=== PATIENT | female | born 1985 | race Caucasian/White ===

== ENCOUNTER → 2022-01-08 01:59 | Outpatient (CLI) | payer OTHER, SELFPAY ==
[2022-01-08 12:51] LABS: SARS-CoV-2 RNA PCR Negative
== END ==
PROVIDERS: Visit Provider Obstetrics & Gynecology
DX: Z01.812 Encounter for preprocedural laboratory examination (principal); Z20.822 Contact with and (suspected) exposure to COVID-19
CPT/HCPCS: 36415; 85025; 86850; 86900; 86901; C9803; U0003; U0005

== ENCOUNTER 2022-01-08 09:39 | Outpatient (CLI) | payer OTHER, SELFPAY ==
[2022-01-08 10:22] LABS: Basophils Percent Auto 0.5 % (0.2-1.2); Eosinophils Percent Auto 0.4 % (0-4.4); Hemoglobin 14.4 g/dL (12.0-15.0); Immature Granulocyte Absolute 0.02 K/mm3 (0.00-0.031); Immature Granulocyte Percent A 0.3 % (0-0.5); Lymphocytes Absolute Auto 3.01 K/mm3 (0.9-3.2); Lymphocytes Percent Auto 38.4 % (18.3-44.2); Mean Corpuscular HGB Conc 32.7 g/dl (32-36); Mean Corpuscular Hemoglobin 30.4 pg (26-34); Monocytes Absolute Auto 0.6 K/mm3 (0.1-0.6); Neutrophils Absolute Auto 4.2 K/mm3 (1.3-6.7); Neutrophils Percent Auto 53.4 % (45.5-73.1); Platelet Count Result 259 k/mm3 (150-375); Red Blood Count 4.73 M/mm3 (4.2-5.4); Red Cell Distribution Width 12.6 % (11.5-14.5); White Blood Count 7.8 K/mm3 (4.5-10.0)
== END 2022-01-08 09:40 | disposition home or self-care (01) ==
PROVIDERS: PCP Internal Medicine; Visit Provider Obstetrics & Gynecology
DX: R10.2 Pelvic and perineal pain (principal)
CPT/HCPCS: 36415; 85025; 86850; 86900; 86901

== ENCOUNTER 2022-01-11 01:04 | Day surgery (SDC) | payer OTHER, SELFPAY ==
[2022-01-02 12:32] VITALS: BMI 41.2
--- NOTE | 2022-01-02 12:49 | PC.NURSE ---
Report to the Outpatient Waiting Room, entrance under the green pavilion located off [facility], at time 6:00 on date 01/11/22. OR Time: 7:30. - You and your visitor will be asked a series of questions to screen for COVID 19 for your protection. - A mask is required within the hospital. One visitor will be allowed to accompany the patient into the hospital. Patients visitor will be instructed to remain with patient at all times or leave the building. We will allow the visitor to come back to the postoperative area when patient is ready. Preoperative COVID Testing Requirements: COVID TEST 01/08 AT 9:30 No COVID Test needed if: (proof is required; if not received patient will have Rapid Test prior to entry) - Patient has received COVID Vaccine at least 14 days prior to procedure date or - Patient has positive COVID test result within last 90 days of surgery date. COVID Test needed if above criteria is not met If not COVID vaccinated a COVID test must be conducted within 72 hours of surgery and patient is asked to isolate self from time of testing until procedure. You will go to the [facility] for your COVID testing. The [facility] site is located at the corner of [address] [facility]. You will only be called if COVID results are positive and your surgeon may reschedule your elective surgery date. Patients may have clear liquids (water, carbonated beverages, clear teas, apple juice) until 3 hours prior to surgery (4:30) with a maximum of 20 ounces. - No food from midnight until time of surgery Take the following medications with a SIP of water the morning of surgery: NONE Medications to discontinue per physician: N/A Date to take last dose: N/A Please no make-up, nail luxembourgish, hairspray, perfume, deodorant, or body powder the day of surgery. No jewelry (including any body piercings) or valuables the day of surgery, leave them at home. Please take a shower or bath the night before, or the morning of, surgery with an antibacterial soap. Wear comfortable, loose fitting clothing. - Jewelry must be removed prior to entering the operating room. Rings and piercings that are not removed may be cut off. - The hospital will not accept responsibility for valuables. - Please leave all valuables, including medications, at home the day of surgery. If you are going home after surgery, a licensed regional dedicated truck driver must drive you home. - NO public transportation without another adult. - We recommend that an adult stay with you for 24 hours following discharge. - We also recommend that you do not drive, make important decision, drink alcoholic beverages, or take any drugs that were not prescribed by your health care provider for at least 24 hours after your discharge time. Follow any additional instructions given to you from your surgeon. Telephone instructions given to MAGUI MCCOLLUM and asked if any additional questions and then verbalized understanding. Patient advised to call surgeon office or pre surgery nurse liaison [phone] if any additional questions.
--- NOTE | 2022-01-10 08:21 | PM.IMHP ---
H&P: HPI History of Present Illness Date/Time: 01/10/22 08:21 36-year-old multiparous admitted for hysterectomy and bilateral salpingectomy secondary to enlarged uterus pelvic pain bleeding and dyspareunia. Ultrasound shows a fibroid uterus. She has had chronic pelvic pain which has been on relenting and nonresponsive to medical therapy. Risks and benefits were reviewed including not exclusive of , aspiration pneumonia, bleeding, transfusion, perforation injury to bowel, bladder, ureters, or other internal organs with need for open laparotomy. She received the ACOG handout entitled hysterectomy as well as the [place] handout. She had all questions answered and asked to proceed Chief Complaint: Pelvic pain/enlarged uterus/dyspareunia Review of Systems Review of Systems: All systems reviewed & are unremarkable except as noted in HPI and below PMFSH Past Medical History Medical History No significant past medical history Family History Family History Grandparent Family history of osteoporosis Depression Hypertension Family history of arthritis Malignant neoplasm of prostate Family history of malignant neoplasm of ovary Diabetes mellitus Mother Depression Father Hypertension Social History Social History Years smoked: 6 Smoking status: Former smoker Tobacco type: cigarettes Smoking end date: 09/15/10 Alcohol intake: current Alcohol use details: 2/MONTH Substance use: never Substance use type: does not use Spiritual care concerns: No Meds Home Medications and Allergies Home Medications Medication Instructions Recorded Confirmed Type No Home Medications 01/02/22 01/02/22 History Allergies Allergy/AdvReac Type Severity Reaction Status Date / Time sulfamethizole Allergy Unknown Abdominal Verified 01/02/22 12:31 Pain sulfamethoxazole Allergy Unknown ABDOMINAL Verified 01/02/22 12:31 PAIN, NECK STIFFNESS trimethoprim Allergy Unknown Abdominal Verified 01/02/22 12:31 Pain MONISTAT Allergy Mild SWELLING Uncoded 01/02/22 12:31 Exam Const: General: no acute distress Eyes: General: appearance normal, both eyes and all related structures Neck: Neck: supple and no JVD Thyroid: thyroid normal Resp: Effort & Inspection: normal respiratory effort Auscultation: clear to auscultation bilaterally Cardio: Rate: regular rate Rhythm: regular rhythm GI: Inspection: non-distended GI Palp: Yes Soft to palpation, No Tenderness to palpation present (GI) and No Guarding due to palpation present (GI) Auscultation: normal bowel sounds : External Female Exam: normal external appearance Speculum Exam - Vagina: normal appearance of the vagina Speculum Exam - Cervix: Cervical os closed Bimanual exam- vagina & uterus: enlarged and Uterine tenderness Bimanual Exam- Adnexa, other: normal adnexae Skin: General skin exam: no rashes or lesions noted Extrem: General: normal to inspection and no edema Psych: Mental Status: mental status grossly normal Affect: normal affect Assessment and Plan Additional Plan Impression: Enlarged uterus irregular bleeding pelvic pain and dyspareunia refractory medical therapy Plan: Robotic total vaginal hysterectomy and bilateral salpingectomy
[2022-01-11] VITALS (13 sets, daily range): BP systolic 98–146; BP diastolic 43–95; PULSE 68–84; RESP 12–20; TEMP 36.2–37.2; O2SAT 97–100
--- NOTE | 2022-01-11 06:41 | WPDANESEPPF ---
Anes - Initial Pre Proc Eval Procedure: Operation Date: 01/11/22 07:30 Proposed Procedures p Robotic Assisted Total Vaginal Hysterectomy with Bilateral Salpingectomy - Yang Bernabe MD Date/Time: 01/11/22 06:41 Surgeon: Yang Bernabe MD Pre Op Diagnosis: pelvic pain, enlarge uterus, irreg bleeding Patient Data Age: 36 Gender: F Height: 1.75 m Weight: 126.55 kg Allergies Allergy/AdvReac Type Severity Reaction Status Date / Time sulfamethizole Allergy Unknown Abdominal Verified 01/02/22 12:31 Pain sulfamethoxazole Allergy Unknown ABDOMINAL Verified 01/02/22 12:31 PAIN, NECK STIFFNESS trimethoprim Allergy Unknown Abdominal Verified 01/02/22 12:31 Pain MONISTAT Allergy Mild SWELLING Uncoded 01/02/22 12:31 Home Medications Medication Instructions Recorded Confirmed Type No Home Medications 01/02/22 01/02/22 History Patient hx anesthesia problems: post op nausea/vomiting Family hx anesthesia problems: none Results Review: All pre-operative results and documents have been reviewed as part of the pre-operative evaluation. [facility] Past Medical History Medical History (Updated 01/11/22 @ 06:41 by Chau Estrada DO) Anxiety Endometriosis Fibroid No significant past medical history PONV (postoperative nausea and vomiting) Family History Family History Grandparent Family history of osteoporosis Depression Hypertension Family history of arthritis Malignant neoplasm of prostate Family history of malignant neoplasm of ovary Diabetes mellitus Mother Depression Father Hypertension Social History Social History Years smoked: 6 Smoking status: Former smoker Tobacco type: cigarettes Smoking end date: 09/15/10 Alcohol intake: current Alcohol use details: 2/MONTH Substance use: never Substance use type: does not use Living arrangements: with family Spiritual care concerns: No Anes - Eval Final PreProcedure Day of Procedure 01/11/22 06:41 Patient weight: morbidly obese Heart: regular rate and rhythm Lungs: clear to auscultation and normal air movement Airway: Mallampati scale class II Neurological: alert and oriented Last oral intake: >/= 8 hours ASA classification: III Emergent: no Anesthetic plan: proceed Anesthesia type and monitoring: general ETT and standard monitoring Results Review: All pre-operative results and documents have been reviewed as part of the pre-operative evaluation. Informed Consent: The patient's anesthetic plan and its attendant risks and benefits were discussed with the patient/family/POA. Questions were solicited and answers provided to the satisfaction of the patient/family/POA.
[2022-01-11] MEDS: ACETAMINOPHEN 500 MG TABLET 1000 MG PO (06:56)
[2022-01-11] MEDS: LACTATED RINGERS 1,000 ML 30 ML IV CONT ×2 (07:05→09:03)
[2022-01-11] MEDS: KETOROLAC 15 MG/ML VIAL (*BKC) IV PUSH ×2 (07:07→09:46)
[2022-01-11] MEDS: SCOPOLAMINE 1.5 MG PATCH TRANSDERM (07:09)
--- NOTE | 2022-01-11 07:17 | WPDHPUPDATE1 ---
History and Physical Update Update Date/Time: 01/11/22 07:17 History and Physical has been reviewed, including an updated exam of the patient. There are NO changes in the patient's condition. Risks, benefits, and alternatives have been discussed and questions answered. Patient agrees to proceed with procedure.
[2022-01-11] MEDS: ceFAZolin 3 GM/D5W 100 ML 100 ML IVPB (07:33)
--- NOTE | 2022-01-11 08:56 | W.PM.PROC2 ---
Procedure Note - Detailed Date of Procedure 01/11/22 Pre-op Diagnosis pelvic pain, enlarge uterus, irreg bleeding Post-op Diagnosis Same Procedure Performed Robotic total vaginal hysterectomy bilateral salpingectomy Surgeon Yang Bernabe MD Anesthesia General Indications Is a 36-year-old female with heavy bleeding pain enlarged uterus Findings Enlarged uterus. Right tube was status post ectopic with swelling and hematosalpinx. Multiple adhesions were seen anteriorly from the omentum to the anterior wall of the. A relatively large divot in the uterus anteriorly with a previous section had been undertaken. Normal-appearing ovaries bilaterally. Description of Procedure Patient was prepped draped in the normal sterile fashion placed in the dorsal lithotomy position. Under excellent general trach anesthesia weighted speculum placed post work vagina. Anterior lip of the cervix grasped with single-tooth tenaculum and the uterus sounded to 11cm. Serial dilatation with fragmented dilators performed followed by passage of the 10. NEHA and the 3. Cold cup. Next the 16 [place] catheter was placed in the bladder and the bladder drained clear urine. The remainder the instruments removed. Gloves were changed A supraumbilical incision made the Veress needle passed in the abdomen. Abdomen filled with CO2 gas [id number]. The 8mm trocar advanced in the abdomen. Downside visualized no injury seen gas reattached the patient placed in Trendelenburg. Left and right lateral quadrant incision made the 8mm trocars advanced under direct visualization assuring no injury. Right upper quadrant incision made the 8mm trocar advanced under direct visualization again assuring no injury. The robot was docked. Attention was turned to the console. The left round ligament was grasped, burned, cut. Anteriorly a bladder flap was formed by slowly dissecting the peritoneum and pushing the bladder caudally. This was somewhat scarred and was down layer by layer. This was taken to the opposite round ligament was clamped, burned, cut. Next the left fallopian tube was sharply dissected away from the ovarian complex using monopolar cautery and left attached to its uterine origin. In like fashion the right fallopian tube was it is still dissected away using sharp dissection and monopolar cautery and left attached to the uterine origin. Next the left utero-ovarian ligament was skeletonized to conserve the left ovary. This was clamped, burned, cut and brought to the level of previously cut round ligament. In like fashion concern removing the right ovary the utero-ovarian ligament was clamped, burned, cut and brought to level of previously cut round ligament. The left cardinal and broad ligaments were then skeletonized and sharply dissected by hugging the cervix and uterus on the way down to the uterine vessels clamping burning and cutting. The uterine vessels on the left were large and tortuous there were individually clamped, burned, cut. In like fashion the cardinal broad ligaments on the right were serially skeletonized clamped, burned, cut hugging the cervix and uterus until the uterine vessels could be seen on the right. These were individually clamped, burned, cut. Excellent blanching of the cervix and uterus were noted. A colpotomy incision was made and the cervix uterus and tubes removed through the vagina. The vagina was then closed with continuous running 0V lock from lateral edge to lateral edge back to the midline. Irrigation undertaken until clear and hemostasis was assured. The robot was undocked and the gas removed from the abdomen. The incisions closed with 4-0 Monocryl and glue and the patient was awakened. All sponge, needle, instrument counts were correct. There were no immediate complications noted Estimated Blood Loss 25 Drains No Packing No Pathology Yes Complications No immediate complications Condition Stable Disposition PACU
[2022-01-11] MEDS: ONDANSETRON INJ 4 MG/2 ML VIAL IV PUSH (09:17)
[2022-01-11] MEDS: fentaNYL CITRATE INJ (*CRX) 100 MCG/2 ML VIAL 25 MCG IV PUSH ×4 (09:20→10:11)
[2022-01-11] MEDS: diphenhydrAMINE HCl INJ 50 MG/ML VIAL 25 MG IV PUSH (09:46)
--- NOTE | 2022-01-11 10:23 | PC.NURSE ---
This patient, Gayathri Toney, was received from PACU per bed to room 289. Patient/family oriented to unit policies and routines
[2022-01-11] MEDS: DEXTROSE 5%/LACTATED RINGERS 1,000 ML 125 ML IV CONT (10:37)
[2022-01-11] MEDS: ACETAMINOPHEN 325 MG TABLET 650 MG PO ×2 (13:27→19:16)
[2022-01-11] MEDS: DOCUSATE SODIUM 100 MG CAPSULE PO (15:59)
[2022-01-11] MEDS: IBUPROFEN 600 MG TABLET PO ×2 (15:59→21:39)
[2022-01-12] MEDS: ACETAMINOPHEN 325 MG TABLET 650 MG PO ×2 (00:48→09:02)
[2022-01-12 04:00] VITALS: BP 118/65; PULSE 77; RESP 18; TEMP 36.9; O2SAT 99
[2022-01-12] MEDS: IBUPROFEN 600 MG TABLET PO (04:04)
[2022-01-12 05:38] LABS: Basophils Percent Auto 0.1 % (0.2-1.2); Eosinophils Percent Auto 0.1 % (0-4.4); Hematocrit 37.4 % (37.0-47.0); Hemoglobin 12.4 g/dL (12.0-15.0); Immature Granulocyte Absolute 0.03 K/mm3 (0.00-0.031); Immature Granulocyte Percent A 0.4 % (0-0.5); Lymphocytes Percent Auto 35.2 % (18.3-44.2); Mean Corpuscular HGB Conc 33.2 g/dl (32-36); Mean Corpuscular Hemoglobin 30.8 pg (26-34); Mean Corpuscular Volume 92.8 fl (80-100); Mean Platelet Volume 9.9 fl (7.4-10.4); Monocytes Absolute Auto 0.6 K/mm3 (0.1-0.6); Monocytes Percent Auto 7.5 % (2.6-8.5); Neutrophils Absolute Auto 4.7 K/mm3 (1.3-6.7); Neutrophils Percent Auto 56.7 % (45.5-73.1); Platelet Count Result 262 k/mm3 (150-375); Red Blood Count 4.03 M/mm3 (4.2-5.4); Red Cell Distribution Width 12.8 % (11.5-14.5); White Blood Count 8.3 K/mm3 (4.5-10.0)
--- NOTE | 2022-01-12 06:16 | PM.DS ---
DS: Admitting Diagnosis Discharge Date 01/12/2022 Admitting Diagnosis enlarged uterus/pelvic pain/ bleeding refractory to medical therapy DS: Summary Hospital Course Hospital Course: patient was admitted for robotic total vaginal hysterectomy bilateral salpingectomy on 01/11/2022. The procedure was unremarkable. Please see the operative report for full details. Her hospital course was unremarkable she remained afebrile. She was up, ambulating voiding without difficulty, eating regular diet and generally without complaints. Time Spent with Patient Time attestation: Total time spent providing and/or coordinating discharge services: Exam Const: General: no acute distress Eyes: General: appearance normal, both eyes and all related structures Neck: Neck: supple and no JVD Thyroid: thyroid normal Resp: Effort & Inspection: normal respiratory effort Auscultation: clear to auscultation bilaterally Cardio: Rate: regular rate Rhythm: regular rhythm GI: Inspection: non-distended GI Palp: Yes Soft to palpation, No Tenderness to palpation present (GI) and No Guarding due to palpation present (GI) Auscultation: normal bowel sounds : General: Yes bladder normal to palpation External Female Exam: normal external appearance Speculum Exam - Vagina: normal vaginal discharge and No vaginal bleeding Speculum Exam - Cervix: nontender Bimanual exam- vagina & uterus: bladder normal to palpation and No Cervical tenderness present OB/external & speculum: No vaginal bleeding Skin: General skin exam: no rashes or lesions noted Extrem: General: normal to inspection and no edema Psych: Mental Status: mental status grossly normal Affect: normal affect DS: Data Data Completed and Pending Pending studies at discharge: Pending at discharge 01/11/22 08:53 Surgical [PTH] Routine Labs on day of discharge: Labs from last 24 hours 01/12/22 04:11 WBC 8.3 RBC 4.03 L Hgb 12.4 Hct 37.4 MCV 92.8 MCH 30.8 MCHC 33.2 RDW 12.8 Plt Count 262 MPV 9.9 Immature Gran % (Auto) 0.4 Neut % (Auto) 56.7 Lymph % (Auto) 35.2 [place] % (Auto) 7.5 Eos % (Auto) 0.1 Baso % (Auto) 0.1 L Lymph # (Auto) 2.90 [place] # (Auto) 0.6 Eos # (Auto) 0.0 Baso # (Auto) 0.0 Abs Immat Gran (auto) 0.03 Absolute Neuts (auto) 4.7 Absolute Nucleated RBC 0.0 Nucleated RBC % 0.0 Discharge Plan Discharge Patient Disposition: Home, Self-Care Discharge Instructions: Remove the Scopolamine patch that was placed behind your ear in 72 hours or less. Wash your hands after touching. Stand Alone Forms: General Discharge Instructions Follow-up/Referrals: Yang Vinson MD [Physician] - Discharge Medications: New hydrocodone-acetaminophen 5-325 mg tablet 1 tablet PO Q4H PRN (Reason: pain) Qty: 30 RF: 0
--- NOTE | 2022-01-12 06:17 | PM.GYNPNOP ---
DIPPER FISH - A/P Postoperative Procedures: Procedures Operation Date: 01/11/22 07:30 Actual Procedure Side Surgeon p Robotic Assisted Total Vaginal Hysterectomy with Bilateral Salpingectomy Bilateral Yang Bernabe MD Postoperative day: 1 Postoperative status: doing well Postoperative plan: routine post-op care, advance diet and discharge Time Spent With Patient Time: Total time spent is greater than 50% in coordination of care (as documented) at patient's floor/unit and/or counseling patient: Time with patient: less than 15 minutes DIPPER FISH- PN:Subj Post-Op Subjective Date/time seen: 01/12/22 06:17 Subjective: patient desires discharge, pain is well controlled and patient is tolerating oral intake Review of Systems Review of Systems: All systems reviewed & are unremarkable except as noted in HPI and below Exam Const: General: no acute distress Eyes: General: appearance normal, both eyes and all related structures Neck: Neck: supple and no JVD Thyroid: thyroid normal Resp: Effort & Inspection: normal respiratory effort Auscultation: clear to auscultation bilaterally Cardio: Rate: regular rate Rhythm: regular rhythm GI: Inspection: non-distended GI Palp: Yes Soft to palpation, No Tenderness to palpation present (GI) and No Guarding due to palpation present (GI) Auscultation: normal bowel sounds : General: Yes bladder normal to palpation External Female Exam: normal external appearance Speculum Exam - Vagina: normal vaginal discharge and No vaginal bleeding Speculum Exam - Cervix: nontender Bimanual exam- vagina & uterus: bladder normal to palpation and No Cervical tenderness present OB/external & speculum: No vaginal bleeding Skin: General skin exam: no rashes or lesions noted Extrem: General: normal to inspection and no edema Psych: Mental Status: mental status grossly normal Affect: normal affect DIPPER FISH - PN: Obj Data Vital Signs Vital Signs: Vital Signs - 24 hr 01/11/22 09:03 01/11/22 09:15 01/11/22 09:30 Temperature 97.2 F L Pulse Rate 80 68 70 Respiratory Rate 14 12 14 Blood Pressure 134/59 L 107/50 L 104/43 L Pulse Oximetry 100 98 98 01/11/22 09:45 01/11/22 10:00 01/11/22 10:13 Temperature Pulse Rate 71 72 70 Respiratory Rate 12 12 12 Blood Pressure 105/50 L 109/50 L 111/65 Pulse Oximetry 99 100 100 01/11/22 10:20 01/11/22 10:30 01/11/22 12:16 Temperature 98.4 F 99 F Pulse Rate 71 73 Respiratory Rate 18 18 Blood Pressure 98/58 L 103/68 Pulse Oximetry 100 100 97 01/11/22 16:00 01/11/22 18:48 01/11/22 23:45 Temperature 98.3 F 98.8 F 98.5 F Pulse Rate 77 77 73 Respiratory Rate 18 18 18 Blood Pressure 119/70 128/82 106/62 Pulse Oximetry 97 100 98 Intake/Output Intake/Output: Intake & Output 01/09/22 01/10/22 01/11/22 01/12/22 23:59 23:59 23:59 23:59 Intake Total 2430 Output Total 2150 Balance 280 Meds/Results Medications: Active Medications Generic Name Dose Route Start Last Admin Trade Name Freq PRN Reason Stop Dose Admin Acetaminophen 650 mg 01/11/22 13:22 01/12/22 00:48 Acetaminophen 325 Mg Tablet PO 650 mg Q6H PRN Administration Mild Pain (1-3) or Fever Hydrocodone Bitart/Acetaminophen 1 tab 01/11/22 10:15 Hydrocodone/Acetaminophen (*Crx) 5-325 Mg Tablet PO Q3H PRN Pain Rated 5 or Less Hydrocodone Bitart/Acetaminophen 1 tab 01/11/22 10:15 Hydrocodone/Acetaminophen (*Crx) 10-325 Mg Tablet PO Q3H PRN Pain Rated 6 or Greater Docusate Sodium 100 mg 01/11/22 09:00 01/11/22 15:59 Docusate Sodium 100 Mg Capsule PO 100 mg BID TYLOR Administration Enoxaparin Sodium 40 mg 01/11/22 09:00 01/11/22 10:40 Enoxaparin 40 Mg/0.4 Ml Syringe SUB-Q Not Given DAILY TYLOR Dextrose/Lactated Ringer's 1,000 mls @ 125 mls/hr 01/11/22 10:15 01/11/22 13:15 Dextrose 5%/Lactated Ringers IV CONT 0 mls/hr .Q8H TYLOR Infusion Ibuprofen 600 mg 01/11/22 10:15 01/12/22 04:04 Ibu
[2022-01-12 08:00] VITALS: BP 118/72; PULSE 70; RESP 16; TEMP 36.7; O2SAT 100
[2022-01-12] MEDS: DOCUSATE SODIUM 100 MG CAPSULE PO (09:02)
[2022-01-12] MEDS: ENOXAPARIN 40 MG/0.4 ML SYRINGE SUB-Q (09:03)
== END 2022-01-12 12:15 | disposition home or self-care (01) ==
LOC: ANHSURGERY 07:15 → ANHOB2 10:22
PROVIDERS: PCP Internal Medicine; Visit Provider Obstetrics & Gynecology
PROC: (CPT 58552; principal; 2022-01-11 07:30)
DX: R10.2 Pelvic and perineal pain (principal); N83.6 Hematosalpinx; N72 Inflammatory disease of cervix uteri; N88.8 Other specified noninflammatory disorders of cervix uteri; N83.8 Other noninflammatory disorders of ovary, fallopian tube and broad ligament; N94.10 Unspecified dyspareunia; N93.9 Abnormal uterine and vaginal bleeding, unspecified; Z87.891 Personal history of nicotine dependence; E66.01 Morbid (severe) obesity due to excess calories; Z68.41 Body mass index [BMI] 40.0-44.9, adult
CPT/HCPCS: 58552; S2900; 36415; 85025; 88307; 99199; A9270; J0690; J1100; J1200; J1650; J1885; J2250; J2405; J2704; J2710; J3010; J7030; J7120; J7121

== ENCOUNTER 2025-08-17 08:38 | Emergency (ER) | payer OTHER, SELFPAY ==
--- NOTE | ~2025-08-17 | US_ITS ---
EXAMINATION: US venous doppler UE DATE: 08/17/2025 10:43 INDICATION: Pain and swelling left wrist status post IV access TECHNIQUE: Godfrey scale images with and without compression and Doppler images of the left upper extremity veins were obtained. COMPARISON: None. FINDINGS: The left internal jugular vein, subclavian vein, axillary vein, brachial veins, basilic vein, radial vein, and ulnar vein are patent. There is superficial venous thrombosis of the left cephalic vein. IMPRESSION: 1. No evidence of deep venous thrombosis. 2: Superficial venous thrombosis left cephalic pain. Reviewed, dictated and finalized at location I. TOR HELPER
[2025-08-17 08:48] VITALS: BP 130/98; PULSE 103; RESP 20; TEMP 36.9; O2SAT 100
--- OUTSIDE RECORDS SUMMARY | 2025-08-17 09:05 | XMS_ITS | Encounter Summary ---
Author Organization [facility] Address [address] [place] [address] Phone Care Team Providers Care Container Finishing Inspector Name Role Phone Yang Vinson MD Unavailable [phone] Cesar Tang MD Unavailable [phone] Herbert Jaime [facility] Primary Care Provider [phone] Encounter Details Date Type Department Care Team (Late st Contact Info) Description 09/03/2023 Behavioral Health Patient Survey [facility] [address] [place] [id number] Mavis Slaughter, [facility] [address] [place] [address] Social History Tobacco Use Types Packs/Day Years Used Date Smoking Tobacco: Former Smokeless Tobacco: Never Alcohol Use Standard Drinks/Week Comments No 0 (1 standard drink = 0.6 oz pur e alcohol) PHQ-2 Answer Date Recorded Total Score - Questions 1-9 0 08/16 Education Answer Date Recorded What is the highest level of school you have completed or the highest degree you have received? GED or equivalent Sexually Active Control Partners Comments Yes None Male Comments No Sex and Gender Information Value Date Recorded Sex Assigned at Not on file Legal Sex Female 11:07 PM CDT Gender Identity Not on file Sexual Orientation Not on file documented as of this encounter Functional Status * Question Answer Date of Assessment Author BP 100/62 09/04/2023 2:10 PM LISW Ontis , Loree A, RMA Temp 98.2 09/04/2023 2:10 PM LISW Ontis , Loree A, RMA Pulse 70 09/04/2023 2:10 PM LISW Ontis , Loree A, RMA Resp 18 09/04/2023 2:10 PM LISW Ontis , Loree A, RMA SpO2 99 09/04/2023 2:10 PM LISW Ontis , Loree A, RMA * Initial Score Answer Date of Assessment Author 0 09/04/2023 2:08 PM LISW Ontis, Ra darrian A, RMA * Question Answer Date of Assessment Author Little interest or pleasure in doing things Not at all 09/04/2023 2:08 PM LISW Ontis, Loree A, RMA Feeling down, depressed, or hopeless Not at all 09/04/2023 2:08 PM LISW Ontis, Loree A, RMA * Initial Score Answer Date of Assessment Author 0 09/04/2023 2:08 PM LISW Ontis, Ra darrian A, RMA * Question Answer Date of Assessment Author Little interest or pleasure in doing things Not at all 09/04/2023 2:08 PM LISW Ontis, Loree A, RMA Feeling down, depressed, or hopeless Not at all 09/04/2023 2:08 PM LISW Ontis, Loree A, RMA * Over the past 2 weeks, how often have you been bothered by any of the following problems? Question Answer Date of Assessment Author Patient Health Questionnaire -2 Score 0 09/04/2023 2:08 PM LISW Ontis, Loree A, RMA documented as of this encounter Mental Status * Question Answer Entry Date Author BP 100/62 09/04/2023 2:10 PM LISW Ontis , Loree A, RMA Temp 98.2 09/04/2023 2:10 PM LISW Ontis , Loree A, RMA Pulse 70 09/04/2023 2:10 PM LISW Ontis , Loree A, RMA SpO2 99 09/04/2023 2:10 PM LISW Ontis , Loree A, RMA * Initial Score Answer Entry Date Author 0 09/04/2023 2:08 PM LISW Ontis, Ra darrian A, RMA * Question Answer Entry Date Author Little interest or pleasure in doing things Not at all 09/04/2023 2:08 PM LISW RoseLoree RMApril Feeling down, depressed, or hopeless Not at all 09/04/2023 2:08 PM LISW Loree Rose MAYTE documented in this encounter Plan of Treatment Upcoming Encounters Date Type Department Care Team (Late st Contact Info) Description 08/19/2025 3:00 PM LISW Office Visit [facility] - Family Medicine - [place] [address] [place] [address] Karla Gamez, DO [address] [place] [address] documented as of this encounter Goals Goal Patient Goal Type Associated Problems Recent Progress Patient-Stated? Author Behavioral Health Behavioral Health On track(2022 9:44 AM LISW) Yes Mavis Slaughter, CORY Note: I want to get back with being able to communicate with my significant other and help him to not feel unloved or unappreciated. I also want to be able to deal better with stress/anxiety with grandmother situation, within the next six months. Goal Reviewed today with: patient Readiness to change: Ready to change Department associated with goal: [facility] Steps to achieve goal: Patient to be counseled on stress management, during her 45 min individual therapy sessions, 1-2 times per month. Patient to be counseled on healthy assertive communication skills, during her 45 min therapy sessions, 1-2 times per month Patient encouraged to attend the weekly [facility] group therapy Behavioral Health Behavioral Health On track(2022 9:44 AM LISW) No Mavis Slaughter LCSW Note: Goal: Gayathri will be able to report improved ability to cope with family/relationship stressors, to an acceptable level, within the next six months Goal Reviewed today with: patient Readiness to change: Ready to change Department associated with goal: [facility] Steps to achieve goal: Gayathri counseled on aspects of healthy self care, during her 45 min therapy sessions, 1-2 times per month Gayathri counseled on coping with anxiety, including deep breathing and other relaxation techniques, during her 45 min therapy sessions, 1-2 times per month Gayathri encouraged to attend the weekly [facility] group therapy documented as of this encounter Visit Diagnoses Not on filedocumented in this encounter Additional Health Concerns Infection Onset Date Last Indicated Resolved Time C. difficile Rule-Out 06/27/2025 06/28/20252024 11:48 AM CDT Assessment Noted Time PHQ-9 Depression Total Score: 0 04/27/20 11:00 AM CDT documented as of this encounter Care Teams Container Finishing Inspector Relationship Specialty Start Date End Date Herbert Jaime, [address] [place] [address] PCP - General Physician As400 Programmer Analyst 05/08/22 Yang Vinson MD [address] [address] Obstetrics & Gynecology 11/05/16 Cesar Tang MD [address] [address] Consulting Physician Neurology 12/06/16 08/01/24 documented as of this encounter
--- OUTSIDE RECORDS SUMMARY | 2025-08-17 09:05 | XMS_ITS | Encounter Summary ---
Author Organization [facility] Address [address] [place] [address] Phone Care Team Providers Care Post Hole Digger Name Role Phone Yang Vinson MD Unavailable [phone] Cesar aTng MD Unavailable [phone] Herbert Jaime [facility] Primary Care Provider [phone] Encounter Details Date Type Department Care Team (Late st Contact Info) Description 11/07/2022 Behavioral Health Patient Survey [facility] [address] [place] [address] Mavis Slaughter, [facility] [address] [place] [address] Social History Tobacco Use Types Packs/Day Years Used Date Smoking Tobacco: Former Smokeless Tobacco: Never Alcohol Use Standard Drinks/Week Comments No 0 (1 standard drink = 0.6 oz pur e alcohol) PHQ-2 Answer Date Recorded Total Score - Questions 1-9 0 04/15 Education Answer Date Recorded What is the highest level of school you have completed or the highest degree you have received? GED or equivalent Sexually Active Control Partners Comments Yes None Male Comments No Sex and Gender Information Value Date Recorded Sex Assigned at Not on file Legal Sex Female 11:07 PM CDT Gender Identity Not on file Sexual Orientation Not on file COVID-19 Exposure Response Date Recorded In the last 10 days, have yo u been in contact with someone who was confirmed or suspected to have Coronavirus/COVID-19? No / Unsure 11/07/2022 9:46 AM RAILROAD DINING CAR STEWARDESS documented as of this encounter Plan of Treatment Upcoming Encounters Date Type Department Care Team (Late st Contact Info) Description 08/19/2025 3:00 PM RAILROAD DINING CAR STEWARDESS Office Visit [facility] - Family Medicine - [place] [address] [place] [address] Karla Gamez, DO [address] [place] [address] documented as of this encounter Goals Goal Patient Goal Type Associated Problems Recent Progress Patient-Stated? Author Behavioral Health Behavioral Health On track(2022 9:44 AM RAILROAD DINING CAR STEWARDESS) Yes Mavis Slaughter LCSW Note: I want to get back with being able to communicate with my significant other and help him to not feel unloved or unappreciated. I also want to be able to deal better with stress/anxiety with grandmother situation, within the next six months. Goal Reviewed today with: patient Readiness to change: Ready to change Department associated with goal: [facility] Steps to achieve goal: Patient to be counseled on stress management, during her 45 min individual therapy sessions, 1-2 times per month. Patient to be counseled on healthy assertive communication skills, during her 45 min therapy sessions, 1-2 times per month Patient encouraged to attend the weekly [facility] group therapy Behavioral Health Behavioral Health On track(2022 9:44 AM RAILROAD DINING CAR STEWARDESS) No Mavis Slaughter LCSW Note: Goal: Gayathri will be able to report improved ability to cope with family/relationship stressors, to an acceptable level, within the next six months Goal Reviewed today with: patient Readiness to change: Ready to change Department associated with goal: [facility] Steps to achieve goal: [...] documented as of this encounter Care Teams Post Hole Digger Relationship Specialty Start Date End Date Herbert Jaime, [address] [place] [address] PCP - General Physician Insulation Extruder Operator 05/08/22 Yang Vinson MD [address] [place] [id number] Obstetrics & Gynecology 11/05/16 Cesar Tang MD [address] [place] [address] Consulting Physician Neurology 12/06/16 08/01/24 documented as of this encounter
--- OUTSIDE RECORDS SUMMARY | 2025-08-17 09:05 | XMS_ITS | Encounter Summary ---
Author Organization [facility] Address [address] [place] [address] Phone Care Team Providers Care Mobile Home Mechanic Name Role Phone Yang Vinson MD Unavailable [phone] Cesar Tang MD Unavailable [phone] Herbert Jaime PAC Primary Care Provider [phone] Encounter Details Date Type Department Care Team (Latest Contact Info) Description 07/21/2023 Transcribe Orders [facility] [address] [place] [address] Yahaira Mckinnon, CARDIAC CATH LAB RADIOLOGY TECHNOLOGIST, HISTOLOGY TECHNOLOGIST [address] [place], [place] [id number] History of morbid obesity (Primary Dx); Intestinal malabsorption following gastrectomy; Status post gastric bypass for obesity Social History Tobacco Use Types Packs/Day Years [...] Recorded In the last 10 days, have milagro u been in contact with someone who was confirmed or suspected to have Coronavirus/COVID-19? No / Unsure 07/21/2023 6:07 AM SALES REPRESENTATIVE SALES MANAGER documented as of this encounter Plan of Treatment Upcoming Encounters Date Type Department Care Team (Late st Contact Info) Description 08/19/2025 3:00 PM SALES REPRESENTATIVE SALES MANAGER Office Visit [facility] - Family [facility] - [place] [address] [place] [address] Karla Gamez, DO 2 Zach SHAFER, LELE[address] [place] [address] documented as of this encounter Goals Goal Patient Goal Type Associated Problems Recent Progress Patient-Stated? Author Behavioral Health Behavioral Health On track(2022 9:44 AM SALES REPRESENTATIVE SALES MANAGER) Yes Mavis Slaughter, CORY Note: I want to get back with being able to communicate with my significant other and help him to not feel unloved or unappreciated. I also want to be able to deal better with stress/anxiety with grandmother situation, within the next six months. Goal Reviewed today with: patient Readiness to change: Ready to change Department associated with goal: [facility] Steps to achieve goal: Patient to be counseled on stress management, during her 45 min individual therapy sessions, 1-2 times per month. Patient to be counseled on healthy assertive communication skills, during her 45 min therapy sessions, 1-2 times per month Patient encouraged to attend the weekly [facility] group therapy Behavioral Health Behavioral Health On track(2022 9:44 AM SALES REPRESENTATIVE SALES MANAGER) No Mavis Slaughter LCSW Note: Goal: Gayathri will be able to report improved ability to cope with family/relationship stressors, to an acceptable level, within the next six months Goal Reviewed today with: patient Readiness to change: Ready to change Department associated with goal: [facility] Steps to achieve goal: Gayathri counseled on aspects of healthy self care, during her 45 min therapy sessions, 1-2 times per month Gayathri counseled on coping with anxiety, including deep breathing and other relaxation techniques, during her 45 min therapy sessions, 1-2 times per month Gayathri encouraged to attend the weekly [facility] group therapy documented as of this encounter Procedures Procedure Name Priority Date/Time Associated Diagnosis Comments VITAMIN D, 25 HYDROXY TOTAL Today 07/21/2023 6:22 AM SALES REPRESENTATIVE SALES MANAGER History of morbid obesity 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 VITAMIN B12 Today 07/21/2023 6:22 AM SALES REPRESENTATIVE SALES MANAGER History of morbid obesity 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 PHOSPHORUS (PO4) Today 07/21/2023 6:22 AM SALES REPRESENTATIVE SALES MANAGER History of morbid obesity 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 PARATHYROID HORMONE PTH INTACT Today 07/21/2023 6:22 AM SALES REPRESENTATIVE SALES MANAGER History of morbid obesity 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 MAGNESIUM (MG) Today 07/21/2023 6:22 AM SALES REPRESENTATIVE SALES MANAGER History of morbid obesity 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 LIPID PANEL Today 07/21/2023 6:22 AM SALES REPRESENTATIVE SALES MANAGER History of morbid obesity 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 FOLIC ACID (FOLATE) Today 07/21/2023 6 :22 AM SALES REPRESENTATIVE SALES MANAGER History of morbid obesity 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 FERRITIN Today 07/21/2023 6:22 AM SALES REPRESENTATIVE SALES MANAGER History of morbid obesity 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 CMP (COMPREHENSIVE METABOLIC PANEL) Today 07/21/2023 6:22 AM SALES REPRESENTATIVE SALES MANAGER History of morbid obesity 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 COMPLETE BLOOD COUNT (CBC) WITH DIFF Today 07/21/2023 6:22 AM SALES REPRESENTATIVE SALES MANAGER History of morbid obesity 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 documented in this encounter Results * (ABNORMAL) CBC WITH AUTO DIFFERENTIAL (07/21/2023 6:22 AM SALES REPRESENTATIVE SALES MANAGER) WBC 4.12 4.00 - 12.00 10(3)/mcL 07/21/2023 7:32 AM SALES REPRESENTATIVE SALES MANAGER [facility] RBC 4.30 3.80 - 5.30 10(6)/mcL 07/21/2023 7:32 AM SALES REPRESENTATIVE SALES MANAGER [facility] HEMOGLOBIN (HGB) 13.6 12.0 - 15.8 g/dL 07/21/2023 7:32 AM [facility] HEMATOCRIT (HCT) 41.6 36.0 - 47.0 % 07/21/2023 7:32 AM [facility] MCV 96.7(H) 82.0 - 96.0 fL 07/21/2023 7:32 AM SALES REPRESENTATIVE SALES MANAGER [facility] MCH 31.6 26.0 - 34.0 pg 07/21/2023 7:32 AM SALES REPRESENTATIVE SALES MANAGER [facility] MCHC 32.7 31.0 - 36.0 g/dL 07/21/2023 7:32 AM [facility] PLATELET COUNT 230 140 - 440 10(3)/mcL 07/21/2023 7:32 AM SALES REPRESENTATIVE SALES MANAGER [facility] RDW 12.1 11.8 - 15.5 % 07/21/2023 7:32 AM [facility] MPV 9.6(L) 9.7 - 12.4 fL 07/21/2023 7:32 AM SALES REPRESENTATIVE SALES MANAGER [facility] NEUTROPHILS 40.1(L) 47.0 - 73.0 % 07/21/2023 7:32 AM SALES REPRESENTATIVE SALES MANAGER [facility] LYMPHOCYTES 50.2(H) 18.0 - 42.0 % 07/21/2023 7:32 AM [facility] MONOCYTES 7.0 4.0 - 12.0 % 07/21/2023 7:32 AM SALES REPRESENTATIVE SALES MANAGER [facility] EOSINOPHILS 2.2 0.0 - 5.0 % 07/21/2023 7:32 AM SALES REPRESENTATIVE SALES MANAGER [facility] BASOPHILS 0.5 0.0 - 1.0 % 07/21/2023 7:32 AM [facility] ABSOLUTE NEUTROPHILS 1.65 1.60 - 7.70 10(3)/[facility] 07/21/2023 7:32 AM [facility] ABSOLUTE LYMPHOCYTES 2.07 1.30 - 3.20 10(3)/[facility] 07/21/2023 7:32 AM SALES REPRESENTATIVE SALES MANAGER [facility] ABSOLUTE MONOCYTES 0.29 0.20 - 1.00 10(3)/[facility] 07/21/2023 7:32 AM SALES REPRESENTATIVE SALES MANAGER [facility] ABSOLUTE EOSINOPHIL 0.09 0.00 - 0.40 10(3)/[facility] 07/21/2023 7:32 AM [facility] ABSOLUTE BASOPHILS 0.02 0.00 - 0.10 10(3)/[facility] 07/21/2023 7:32 AM [facility] NRBC PER 100 WBC 0 07/21/20 7:32 AM [facility] Blood Venipuncture / Unknown 07/21/2023 6:22 AM SALES REPRESENTATIVE SALES MANAGER 07/21/2023 7:26 AM SALES REPRESENTATIVE SALES MANAGER us Yahaira Mckinnon CARDIAC CATH LAB RADIOLOGY TECHNOLOGIST, HISTOLOGY TECHNOLOGIST HEMATOLOGY ORDERABLES Fin al Result [facility] [address] [place] [address] * (ABNORMAL) IRON,TRANSFERN,CALC.TIBC,%SAT (07/21/2023 6:22 AM SALES REPRESENTATIVE SALES MANAGER) IRON 94 25 - 156 mcg/dL 07/21/2023 10:29 AM SALES REPRESENTATIVE SALES MANAGER [facility] TRANSFERRIN 186 180 - 382 mg/dL 07/21/2023 10:29 AM SALES REPRESENTATIVE SALES MANAGER [facility] TIBC, CALCULATED 233(L) 265 - 497 mcg/dL 07/21/2023 10:29 AM SALES REPRESENTATIVE SALES MANAGER [facility] % SATURATION * 40 15 - 62 % 07/21/2023 10:29 AM SALES REPRESENTATIVE SALES MANAGER [facility] Blood Venipuncture / Unknown 07/21/2023 6:22 AM SALES REPRESENTATIVE SALES MANAGER 07/21/2023 7:26 AM SALES REPRESENTATIVE SALES MANAGER Narrative [facility] - 07/21/2023 10:29 AM SALES REPRESENTATIVE SALES MANAGER * % Transferrin Saturation us Yahaira Mckinnon APRN, HISTOLOGY TECHNOLOGIST CHEMISTRY ORDERABLES Adrianne l Result [facility] [address] [place] [address] * PHOSPHORUS (PO4) (07/21/2023 6:22 AM SALES REPRESENTATIVE SALES MANAGER) [facility] PHOSPHORUS 2.8 2.5 - 4.5 mg/dL 07/21/2023 8:19 AM SALES REPRESENTATIVE SALES MANAGER [facility] Blood Venipuncture / Unknown 07/21/2023 6:22 AM SALES REPRESENTATIVE SALES MANAGER 07/21/2023 7:26 AM SALES REPRESENTATIVE SALES MANAGER us Yahaira Mckinnon APRN, HISTOLOGY TECHNOLOGIST CHEMISTRY ORDERABLES Adrianne l Result [facility] [address] [place] [address] * PARATHYROID HORMONE PTH INTACT (07/21/2023 6:22 AM SALES REPRESENTATIVE SALES MANAGER) Pathologist [facility] PTH INTACT 51 13 - 85 pg/mL 07/21/2023 10:34 AM SALES REPRESENTATIVE SALES MANAGER [facility] Blood Venipuncture / Unknown 07/21/2023 6:22 AM SALES REPRESENTATIVE SALES MANAGER 07/21/2023 7:25 AM SALES REPRESENTATIVE SALES MANAGER Yahaira Mckinnon APRN, CNP CHEMISTRY ORDERABLES Adrianne l Result Performing Organization Address City/[facility] [address]/ZIP Co de Phone Number [facility] [address] [place] [address] * THIAMIN (VITAMIN B1), WHOLE BLOOD, [facility] (07/21/2023 6:22 AM SALES REPRESENTATIVE SALES MANAGER) Pathologist [facility] THIAMIN (VITAMIN B1) 170 70 - 180 nmol/L 07/24/2023 9:38 AM SALES REPRESENTATIVE SALES MANAGER [facility] Comment: ADDITIONAL INFORMATION This test was developed and its performance characteristics determined by [facility] in a manner consistent with CLIA requirements. This test has not been cleared or approved by the U.S. Food and Drug Administration. Test Performed by: [facility] [place] [address] Manager Market Research: Gomez Gibson M.D. Ph.D.; CLIA# [id number] Blood Venipuncture / Unknown 07/21/2023 6:22 AM SALES REPRESENTATIVE SALES MANAGER 07/21/2023 7:25 AM SALES REPRESENTATIVE SALES MANAGER us Yahaira Mckinnon APRN, CNP LAB SEND OUTS Final Res ult [facility] * FOLIC ACID (FOLATE) (07/21/2023 6:22 AM SALES REPRESENTATIVE SALES MANAGER) FOLATE 11.1 7.0 - 31.4 ng/mL 07/21/2023 8:46 AM SALES REPRESENTATIVE SALES MANAGER [facility] IS THE PATIENT REQUIRED TO BE FASTING? No 07/21/2023 8:46 AM SALES REPRESENTATIVE SALES MANAGER [facility] Blood Venipuncture / Unknown 07/21/2023 6:22 AM SALES REPRESENTATIVE SALES MANAGER 07/21/2023 7:27 AM SALES REPRESENTATIVE SALES MANAGER Yahaira Mckinnon APRN, HISTOLOGY TECHNOLOGIST CHEMISTRY ORDERABLES Adrianne l Result Performing Organization Address City/[facility] [address]/ZIP Co de Phone Number [facility] [address] [place] [address] * VITAMIN B12 (07/21/2023 6:22 AM SALES REPRESENTATIVE SALES MANAGER) VITAMIN B12 503 213 - 816 pg/mL 07/21/2023 8:39 AM SALES REPRESENTATIVE SALES MANAGER [facility] Blood Venipuncture / Unknown 07/21/2023 6:22 AM SALES REPRESENTATIVE SALES MANAGER 07/21/2023 7:27 AM SALES REPRESENTATIVE SALES MANAGER Yahaira Mckinnon APRN, HISTOLOGY TECHNOLOGIST CHEMISTRY ORDERABLES Adrianne l Result Performing Organization Address [facility] [address]/[facility] Co de Phone Number [facility] [address] [place] [address] * VITAMIN D, 25 HYDROXY TOTAL (07/21/2023 6:22 AM SALES REPRESENTATIVE SALES MANAGER) VITAMIN D, 25 HYDROX 66 ng/mL 07/21/2023 8:46 AM SALES REPRESENTATIVE SALES MANAGER [facility] Blood Venipuncture / Unknown 07/21/2023 6:22 AM SALES REPRESENTATIVE SALES MANAGER 07/21/2023 7:27 AM SALES REPRESENTATIVE SALES MANAGER Narrative [facility] - 07/21/2023 8:46 AM SALES REPRESENTATIVE SALES MANAGER Published reference ranges for Vitamin D vary depending on time and place and method of testing, and on patient's age, sex, ethnicity and levels of other measured analytes such as parathormone, calcium and phosphorus. The result should be evaluated in conjunction with clinical findings and suspicions. [employer] of [employer] and Endocrine Clinical Practice Guidelines: Status Vitamin D levels (ng/mL) Deficient <=20 At risk of inadequacy 21-29 Sufficient 30-100 Centers of Disease Control and Prevention Guidelines: Status Vitamin D levels (ng/mL) Deficient <13 At risk of inadequacy 13-19 Sufficient 20-50 Possibly harmful >50 References: [employer], 2010 Dietary reference intakes for calcium and vitamin D. [place]: The National Academies Press. Bruce Burdick, Philip N, [place] SALOMON, et al., Evaluation, treatment, and prevention of Vitamin D deficiency: an Endocrinology Clinical Practice Guideline. JCEM 2011 96: 7 1867-6005. Hermelindo A, Chapo C, Juan Ramon Bearden, et al., Vitamin D Status: [place], , [facility] data brief, no. 59, MD Aaron: [facility] for Health Statistics. 2011. Yahaira Mckinnon APRN, CNP CHEMISTRY ORDERABLES Adrianne l Result Performing Organization Address City/[facility] [address]/ZIP Co de Phone Number [facility] [address] [place] [address] * MAGNESIUM (MG) (07/21/2023 6:22 AM SALES REPRESENTATIVE SALES MANAGER) MAGNESIUM 1.9 1.6 - 2.6 mg/dL 07/21/2023 8:19 AM SALES REPRESENTATIVE SALES MANAGER [facility] Blood Venipuncture / Unknown 07/21/2023 6:22 AM SALES REPRESENTATIVE SALES MANAGER 07/21/2023 7:26 AM SALES REPRESENTATIVE SALES MANAGER Yahaira Mckinnon APRN, CNP CHEMISTRY ORDERABLES Adrianne l Result Performing Organization Address City/[facility] [address]/ZIP Co de Phone Number [facility] [address] [place] [address] * LIPID PANEL (07/21/2023 6:22 AM SALES REPRESENTATIVE SALES MANAGER) CHOLESTEROL 159 <200 mg/dL 07/21/2023 8:19 AM SALES REPRESENTATIVE SALES MANAGER [facility] TRIGLYCERIDES 64 <150 mg/dL 07/21/2023 8:19 AM SALES REPRESENTATIVE SALES MANAGER [facility] HDL CHOLESTEROL 43 >40 mg/dL 8:19 AM SALES REPRESENTATIVE SALES MANAGER [facility] LDL 103 <130 mg/dL 07/21/2023 8:19 AM SALES REPRESENTATIVE SALES MANAGER [facility] VLDL 13 10 - 50 mg/dL 07/21/2023 8:19 AM SALES REPRESENTATIVE SALES MANAGER [facility] CHOL/HDL RATIO 3.7 0.0 - 4.4 07/21/2023 8:19 AM SALES REPRESENTATIVE SALES MANAGER [facility] NON-HDL CHOLESTEROL 116 <130 mg/dL 07/21/2023 8:19 AM SALES REPRESENTATIVE SALES MANAGER [facility] IS THE PATIENT REQUIRED TO BE FASTING? Yes 07/21/2023 8:19 AM SALES REPRESENTATIVE SALES MANAGER [facility] HAS THE PATIENT BEEN FASTING? Yes 07/21/2023 8:19 AM SALES REPRESENTATIVE SALES MANAGER [facility] Blood Venipuncture / Unknown 07/21/2023 6:22 AM SALES REPRESENTATIVE SALES MANAGER 07/21/2023 7:26 AM SALES REPRESENTATIVE SALES MANAGER Yahaira Mckinnon APRN, HISTOLOGY TECHNOLOGIST CHEMISTRY ORDERABLES Adrianne l Result Performing Organization Address City/[facility] [address]/ZIP Co de Phone Number [facility] [address] [place] [address] * FERRITIN (07/21/2023 6:22 AM SALES REPRESENTATIVE SALES MANAGER) FERRITIN 120 5 - 204 ng/mL 07/21/2023 8:35 AM SALES REPRESENTATIVE SALES MANAGER [facility] Blood Venipuncture / Unknown 07/21/2023 6:22 AM SALES REPRESENTATIVE SALES MANAGER 07/21/2023 7:26 AM SALES REPRESENTATIVE SALES MANAGER us Yahaira Mckinnon APRN, HISTOLOGY TECHNOLOGIST CHEMISTRY ORDERABLES Adrianne l Result [facility] [address] [place] [address] * (ABNORMAL) CMP (COMPREHENSIVE METABOLIC PANEL) (07/21/2023 6:22 AM SALES REPRESENTATIVE SALES MANAGER) SODIUM 140 136 - 145 mmol/L 07/21/2023 8:19 AM SALES REPRESENTATIVE SALES MANAGER [facility] POTASSIUM 3.9 3.5 - 5.1 mmol/L 07/21/2023 8:19 AM [facility] CHLORIDE 107 98 - 107 mmol/L 07/21/2023 8:19 AM [facility] CO2, VENOUS 26 22 - 30 mmol/L 07/21/2023 8:19 AM [facility] ANION GAP 10.9 <18.0 mmol/L 07/21/2023 8:19 AM [facility] GLUCOSE 85 70 - 99 mg/dL 07/21/2023 8:19 AM [facility] BUN 14 5 - 18 mg/dL 07/21/2023 8:19 AM [facility] CREATININE, BLOOD 0.69 0.60 - 1.00 mg/dL 07/21/2023 8:19 AM [facility] BUN/CREATININE RATIO 20 12 - 20 ratio 07/21/2023 8:19 AM [facility] TOTAL PROTEIN 6.9 6.3 - 8.2 g/dL 07/21/2023 8:19 AM [facility] ALBUMIN 4.0 3.5 - 5.0 g/dL 07/21/2023 8:19 AM [facility] A/G RATIO 1.4 1.0 - 2.2 07/21/2023 8:19 AM [facility] CALCIUM 8.8 8.7 - 10.5 mg/dL 07/21/2023 8:19 AM [facility] T BILI 0.7 0.2 - 1.2 mg/dL 07/21/2023 8:19 AM [facility] SGOT (AST) 12 5 - 34 U/L 07/21/2023 8:19 AM [facility] SGPT (ALT) 19 0 - 55 U/L 07/21/2023 8:19 AM [facility] ALKALINE PHOSPHATASE 38(L) 40 - 150 U/L 07/21/2023 8:19 AM [facility] IS THE PATIENT REQUIRED TO BE FASTING? No 07/21/2023 8:19 AM SALES REPRESENTATIVE SALES MANAGER [facility] GFR, ESTIMATED >60 >=60 07/21/2023 8:19 AM SALES REPRESENTATIVE SALES MANAGER [facility] Comment: Creatinine Clearance is the preferred criteria for selecting drug dose adjustments in renally impaired patients. The GFR is provided as additional pertinent clinical information. GFR is reported in mL/min/1.73 sq m. Calculation based on the Chronic Kidney Disease Epidemiology Collaboration (CKD- EPI) equation refit without adjustment for race. GFR, EST. >60 >=60 023 8:19 AM SALES REPRESENTATIVE SALES MANAGER [facility] GFR, EST. NONAFRICAN >60 >=60 07/21/2023 8:19 AM SALES REPRESENTATIVE SALES MANAGER [facility] Blood Venipuncture / Unknown 07/21/2023 6:22 AM SALES REPRESENTATIVE SALES MANAGER 07/21/2023 7:26 AM SALES REPRESENTATIVE SALES MANAGER Yahaira Mckinnon APRN, HISTOLOGY TECHNOLOGIST CHEMISTRY ORDERABLES Adrianne l Result [facility] [address] [place] [address] documented in this encounter Visit Diagnoses Diagnosis History of morbid obesity- Primary 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 Bariatric surgery status documented in this encounter Additional Health Concerns Infection Onset Date Last Indicated Resolved Time C. difficile Rule-Out 06/27/2025 06/28/20252024 11:48 AM CDT Assessment Noted Time PHQ-9 Depression Total Score: 0 04/27/20 21 11:00 AM CDT documented as of this encounter Care Teams Mobile Home Mechanic Relationship Specialty Start Date End Date Herbert Jaime PAC [address] [place] [address] PCP - General Physician Pony Roll Finisher 05/08/22 Yang Vinson MD [address] [place] [address] Obstetrics & Gynecology 11/05/16 Cesar Tang MD [address] [facility] [address] [facility] [address] [place] [address] Consulting Physician Neurology 12/06/16 08/01/24 documented as of this encounter
--- OUTSIDE RECORDS SUMMARY | 2025-08-17 09:05 | XMS_ITS | Encounter Summary ---
Author Organization [facility] Address [address] [place] [address] Phone Care Team Providers Care Research Hydraulic Engineer Name Role Phone Yang Vinson MD Unavailable [phone] Cesar Tang MD Unavailable [phone] Herbert Jaime [facility] Primary Care Provider + [phone] Encounter Details Date Type Department Care Team (Late st Contact Info) Description 05/14/2022 Behavioral Health Patient Survey [facility] [address] [place] [address] Mychart, Generic Provider [address] [place] [address] Social History Tobacco Use Types Packs/Day Years [...] suspected to have Coronavirus/COVID-19? No / Unsure 05/13/2022 7:20 PM CDT documented as of this encounter Plan of Treatment Upcoming Encounters Date Type Department Care Team (Late st Contact Info) Description 08/19/2025 3:00 PM RN GYNECOLOGY Office Visit [facility] - Family Medicine - [place] [place] [address] Karla Gamez, DO [address] [place] [address] documented as of this encounter Goals Goal Patient Goal Type Associated Problems Recent Progress Patient-Stated? Author Behavioral Health Behavioral Health On track(2022 9:44 AM RN GYNECOLOGY) Yes Mavis Slaughter, CORY Note: I want to get back with being able to communicate with my significant other and help him to not feel unloved or unappreciated. I also want to be able to deal better with stress/anxiety with grandmother situation, within the next six months. Goal Reviewed today with: patient Readiness to change: Ready to change Department associated with goal: [facility] Steps to achieve goal: Patient to be counseled on stress management, during her 45 min individual therapy sessions, 1-2 times per month. Patient to be counseled on healthy assertive communication skills, during her 45 min therapy sessions, 1-2 times per month Patient encouraged to attend the weekly [facility] group therapy Behavioral Health Behavioral Health On track(2022 9:44 AM RN GYNECOLOGY) No Mavis Slaughter, CORY Note: Goal: Gayathri will be able to report improved ability to cope with family/relationship stressors, to an acceptable level, within the next six months Goal Reviewed today with: patient Readiness to change: Ready to change Department associated with goal: [facility] Steps to achieve goal: [...] documented as of this encounter Care Teams Research Hydraulic Engineer Relationship Specialty Start Date End Date Herbert Jaime, PAC [address] [place] [address] PCP - General Physician Home Health Lvn 05/08/22 Yang Vinson MD [address] [address] Obstetrics & Gynecology 11/05/16 Cesar Tang MD [address] [address] Consulting Physician Neurology 12/06/16 08/01/24 documented as of this encounter
--- OUTSIDE RECORDS SUMMARY | 2025-08-17 09:05 | XMS_ITS | Encounter Summary ---
Author Organization [facility] Address [address] [place] [address] Phone Care Team Providers Care Rn Cardiac Cath Name Role Phone Yang Vinson MD Unavailable [phone] Cesar Tang MD Unavailable [phone] Alex Avilez PAC Primary Care Provider U Herbert Rehman PAC Primary Care Provider + [phone] Encounter Details Date Type Department Care Team (Late st Contact Info) Description 04/10/2022 Behavioral Health Patient Survey [facility] [address] [place] [address] Mychart, Generic Provider [address] [place] [address] Social History Tobacco Use Types Packs/Day Years [...] suspected to have Coronavirus/COVID-19? No / Unsure 04/10/2022 3:16 PM CDT documented as of this encounter Functional Status documented as of this encounter Mental Status * Question Answer Entry Date Author BP 134/76 04/10/2022 9:05 AM CDT Jennifer Greer ams, RN Temp 98.4 04/10/2022 9:05 AM CDT Jennifer Greer ams, RN Pulse 89 04/10/2022 9:05 AM CDT Jennifer Greer ams, RN SpO2 99 04/10/2022 9:05 AM CDT Jennifer Greer ams, RN documented in this encounter Plan of Treatment Upcoming Encounters Date Type Department Care Team (Late st Contact Info) Description 08/19/2025 3:00 PM LABOR LAW PROFESSOR Office Visit [facility] Medical [facility] - Family Medicine [facility] [address] [place] [address] Karla Gamez, DO [address] [facility] [address] [place] [address] documented as of this encounter Goals Goal Patient Goal Type Associated Problems Recent Progress Patient-Stated? Author Behavioral Health Behavioral Health On track(2022 9:44 AM LABOR LAW PROFESSOR) Yes Mavis Slaughter LCSW Note: I want to get back with being able to communicate with my significant other and help him to not feel unloved or unappreciated. I also want to be able to deal better with stress/anxiety with grandmother situation, within the next six months. Goal Reviewed today with: patient Readiness to change: Ready to change Department associated with goal: [facility] Steps to achieve goal: Patient to be counseled on stress management, during her 45 min individual therapy sessions, 1-2 times per month. Patient to be counseled on healthy assertive communication skills, during her 45 min therapy sessions, 1-2 times per month Patient encouraged to attend the weekly [facility] group therapy Behavioral Health Behavioral Health On track(2022 9:44 AM LABOR LAW PROFESSOR) No Slaughter, Kren K, PUNCH MACHINE OPERATOR Note: Goal: Gayathri will be able to report improved ability to cope with family/relationship stressors, to an acceptable level, within the next six months Goal Reviewed today with: patient Readiness to change: Ready to change Department associated with goal: [facility] Steps to achieve [...] documented as of this encounter Care Teams Rn Cardiac Cath Relationship Specialty Start Date End Date Alex Avilez, ACRLITA [address] [address] PCP - General Physician Clam Bed Laborer 03/16/21 05/07/22 Herbert Jaime, [facility] [address] [place] [address] PCP - General Physician Clam Bed Laborer 05/08/22 Yang Vinson MD [address] [address] Obstetrics & Gynecology 11/05/16 Cesar Tang MD [address] [place] [address] Consulting Physician Neurology 12/06/16 08/01/24 documented as of this encounter
--- OUTSIDE RECORDS SUMMARY | 2025-08-17 09:05 | XMS_ITS | Encounter Summary ---
Author Organization [facility] Address [address] [place] [address] Phone Care Team Providers Care Work Order Sorting Clerk Name Role Phone Yang Vinson MD Unavailable [phone] Cesar Tang MD Unavailable [phone] Herbert Jaime [facility] Primary Care Provider + [phone] Encounter Details Date Type Department Care Team (Late st Contact Info) Description 09/19/2022 Behavioral Health Patient Survey [facility] [address] [place] [address] Mychart, Generic Provider [address] [place] [address] Social History Tobacco Use Types Packs/Day Years [...] suspected to have Coronavirus/COVID-19? No / Unsure 09/19/2022 9:13 AM FOREIGN EXCHANGE TRADER documented as of this encounter Plan of Treatment Upcoming Encounters Date Type Department Care Team (Late st Contact Info) Description 08/19/2025 3:00 PM FOREIGN EXCHANGE TRADER Office Visit [facility] Medical [facility] - Family Medicine - [place] [place] [address] Karla Gamez, DO [address] [place] [address] documented as of this encounter Goals Goal Patient Goal Type Associated Problems Recent Progress Patient-Stated? Author Behavioral Health Behavioral Health On track(2022 9:44 AM FOREIGN EXCHANGE TRADER) Yes Mavis Slaughter LCSW Note: I want to get back with being able to communicate with my significant other and help him to not feel unloved or unappreciated. I also want to be able to deal better with stress/anxiety with grandmother situation, within the next six months. Goal Reviewed today with: patient Readiness to change: Ready to change Department associated with goal: [facility] Steps to achieve goal: Patient to be counseled on stress management, during her 45 min individual therapy sessions, 1-2 times per month. Patient to be counseled on healthy assertive communication skills, during her 45 min therapy sessions, 1-2 times per month Patient encouraged to attend the weekly [facility] group therapy Behavioral Health Behavioral Health On track(2022 9:44 AM FOREIGN EXCHANGE TRADER) No Mavis Slaughter LCSW Note: Goal: Gayathri will be able to report improved ability to cope with family/relationship stressors, to an acceptable level, within the next six months Goal Reviewed today with: patient Readiness to change: Ready to change Department associated with goal: [facility] Steps to achieve [...] documented as of this encounter Care Teams Work Order Sorting Clerk Relationship Specialty Start Date End Date Herbert Jaime, PAC [address] [place] [address] PCP - General Physician Tray Drier 05/08/22 Yang Vinson MD [address] [address] Obstetrics & Gynecology 11/05/16 Cesar Tang MD [address] [address] Consulting Physician Neurology 12/06/16 08/01/24 documented as of this encounter
--- OUTSIDE RECORDS SUMMARY | 2025-08-17 09:05 | XMS_ITS | Clinical Summary ---
Author Organization [facility] Address [address] [place] [address] Care Team Providers Care Director Part Name Role Phone Yang Vinson MD Unavailable [phone] Herbetr Jaime Primary Care Provider + [phone] Allergies Active Allergy Reactions Criticality Noted Date Comments Sulfamethoxazole-Trimethop rim Shortness of Breath 01/15/2016 Miconazole Nitrate Other (see Comments) 11/05/2016 Nsaids Other (see Comments) 10/29/2022 Xepqk-Vitdtae-Jfuosp Other (see Comments) 11/13/2022 I have had Gastric Bypass. I am only allowed Sugar Free items. Sulfamethoxazole Other (see Comments) Trimethoprim Shortness of Breath Medications Acetaminophen 500 MG Capsule Activ e buPROPion (WELLBUTRIN) 300 MG TABLET SR 24 HR XL tablet 100 mg. 100MG TID non XL 3 Active Probiotic Product (Probiotic Colon Support) Capsule 3 Active other by Other route. Bariatric Advantage Ultra Solo with Iron Active Polyethylene Glycol 3350 Powder Take by mouth. Activ e ondansetron (ZOFRAN-ODT) 4 MG TABLET DISPERSIBLE 3 Active Vilazodone HCl (Viibryd) 10 MG Tablet Take by mouth. Activ e Conj Estrog-Medroxypr ogest Arthur (PREMPRO PO) Take by mouth. Ac tive fluconazole (DIFLUCAN) 150 MG TabletIndication s:Antibiotic-ind uced yeast infection Take 1 Tablet by mouth daily as needed (vaginal yeast infection). 3 Tablet 3 Active cyclobenzaprine (FLEXERIL) 10 MG TabletIndication s:Muscle spasm of right lower extremity TAKE 1 TABLET BY MOUTH 3 TIMES DAILY NEEDED FOR MUSCLE SPASMS. 30 Tablet 1 5 Active Active Problems Problem Noted Date Diagnosed Date Preventative health care (Adult) 10/19/2018 Obesity due to excess calories without serious c omorbidity 04/21/2018 Herniation of intervertebral disc between L5 and S1 01/13/2018 Chronic midline low back pain without sciatica 1 Mixed migraine and muscle contraction headache 0 12/06/2016 Generalized anxiety disorder 05/08/2016 Hypersomnia with sleep apnea 07/20/2013 Overview (08/25/2018): Overview: Hypersomnia with sleep apnea Morbid obesity 07/20/2013 Overview (08/25/2018): Overview: Morbid obesity Resolved Problems Problem Noted Date Diagnosed Date Resolved Date Bulging of intervertebral di sc between L4 and L5 04/21/2018 10/19/2018 Cauda equina compression 01/13/201810/2017 Encounters Date Type Department Care Team Description 08/03/2025 Telephone [facility] [address] [place] [phone] Karla Gamez DO 06/28/2025 Travel 06/27/[address] [facility] [address] [place] [phone] Provider, Unknown Diarrhea, unspecified type (Primary Dx) 06/24/2025 Telephone [facility] [address] [place] [phone] Herbert Jaime, PAC 06/23/2025 5:37 AM CDT - 06/23/2025 11:37 AM CDT Emergency [facility] Emergency [address] [place] [phone] Jarek Estrada DO Bowel perforation Discharge Disposition: [facility] 06/20/2025 8:51 AM CDT - 06/20/2025 11:59 PM CDT Hospital Encounter [facility] Mammography [address] [place] [phone] Yang Vinson MD Discharge Disposition: Discharged to home or Selfcare 06/20/2025 Travel 06/09/2025 Transcribe Orders [facility] [address] [place] [address] Yagn Vinson MD Visit for screening mammogram (Primary Dx) from Last 3 Months Immunizations Immunization Administration Dates Next Due DTAP VACCINE 05/25/2015 Influenza,Split Virus,Trivalent,Injectable,PF TD VACCINE 02/01/2000 Family History Medical History Relation Name Comments Coronary Artery Disease Father Terence Was found before age 50 Heart Attack Father Terence High Cholesterol Father Terence Hypertension Father Terence Cancer Maternal Aunt Ronni Lung Diabetes Maternal Aunt Ronni Aneurysm Maternal Grandfather Adolfo Was in groin Heart Attack Maternal Grandfather Bill High Cholesterol Maternal Grandfather Bill Hypertension Maternal Grandfather Bill Congestive Heart Failure Maternal Grandmother Opalene Pacemaker was put in 2019 High Cholesterol Maternal Grandmother Opalene Hypertension Maternal Grandmother Opalene Cancer Mother Kimberley Prostate Seizures Mother Kimberley Has a tumor in her head that can cause them Cancer Paternal Grandfather Ladislaus Prostat e Cancer Paternal Grandmother Marily Uterine Hypertension Paternal Grandmother Marily Migraines Sister 1 High Cholesterol Sister 2 Sujatha Hypertension Sister 2 Sujatha Migraines Sister 2 Sujatha Rashes/Skin Problems Sister 2 Sujatha Hidrade nitis Suppurativa Relation Name Status Comments Father Terence Alive Maternal Aunt Ronni Alive Maternal Grandfather Bill Alive Maternal Grandmother Opalene Alive Mother Kimberley Alive Paternal Grandfather Ladislaus Alive Paternal Grandmother Marily Alive Sister 1 Alive Sister 2 Sujatha Alive Social History Tobacco Use Types Packs/Day Years Used Date Smoking Tobacco: Former Smokeless Tobacco: Never Tobacco Cessation:Counseling Given: No Alcohol Use Standard Drinks/Week Comments No 0 [...] on file Sexual Orientation Not on file Last Filed Vital Signs Vital Sign Reading Time Taken Comments Blood Pressure 111/78 06/23/2025 11:15 AM CDT Pulse 92 06/23/2025 11:15 AM CDT Temperature 36.7 C (98 F) 06/23/2025 5:48 AM CDT Respiratory Rate 26 06/23/2025 11:15 AM CDT Oxygen Saturation 99% 06/23/2025 11:15 AM CDT Inhaled Oxygen Concentration - - Weight 68 kg (150 lb) 06/23/2025 5:48 AM CDT Height 175.3 cm (5' 9) 06/23/2025 5:48 AM CDT Body Mass Index 22.15 06/23/2025 5:48 AM CDT Plan of Treatment Upcoming Encounters Date Type Department Care Team (Late st Contact Info) Description 08/19/2025 3:00 PM HOSPICE/HOME HEALTH AIDE Office Visit [facility] - [place] [address] [place] [address] Karla Gamez, DO [address] [address] Health Maintenance Due Date Last Done Comments Varicella Immunization (1 of 2 - 13+ 2-dose series) 1997 Hepatitis B Immunization (1 of 3 - 19+ 3-dose series) 2003 Human Papillomavirus (HPV) Immunization (1 - 3-dose SCDM series) 2011 Influenza Immunization (#1) 2025 06/17/2024 SARS-COV-2 Immunization ( - season) 2025 Mammogram 06/20/2026 06/20/2025 Respiratory Syncytial Virus (RSV) Immunization (Adult) (1 - 1-dose 75+ series) 2059 DTaP/Tdap/Td Immunization Discontinued 2014, 02/01/2000 Hepatitis C Virus (HCV) Screening Completed 03/11/2018 Discussion re Starting/Frequency of Mammograms Completed 06/20/2025 Meningococcal Immunization (ACWY) Aged Out No longer eligible based on patient's age to complete this topic Pneumococcal Immunization Combined Aged Out No longer eligible based on patient's age to complete this topic Rotavirus Immunization Aged Out No lo nger eligible based on patient's age to complete this topic Goals Goal Patient Goal Type Associated Problems Recent Progress Patient-Stated? Author [facility] On track(2022 9:44 AM HOSPICE/HOME HEALTH AIDE) Yes Mavis Slaughter, CORY Note: I want to get back with being able to communicate with my significant other and help him to not feel unloved or unappreciated. I also want to be able to deal better with stress/anxiety with grandmother situation, within the next six months. Goal Reviewed today with: patient Readiness to change: Ready to change Department associated with goal: [facility] Steps to achieve goal: Patient to be counseled on stress management, during her 45 min individual therapy sessions, 1-2 times per month. Patient to be counseled on healthy assertive communication skills, during her 45 min therapy sessions, 1-2 times per month Patient encouraged to attend the weekly [facility] group therapy [facility] On track(2022 9:44 AM HOSPICE/HOME HEALTH AIDE) No Mavis Slaughter, CORY Note: Goal: Gayathri will be able to report improved ability to cope with family/relationship stressors, to an acceptable level, within the next six months Goal Reviewed today with: patient Readiness to change: Ready to change Department associated with goal: [facility] Steps to achieve goal: Gayathri counseled on aspects of healthy self care, during her 45 min therapy sessions, 1-2 times per month Gayathri counseled on coping with anxiety, including deep breathing and other relaxation techniques, during her 45 min therapy sessions, 1-2 times per month Gayathri encouraged to attend the weekly [facility] group therapy Procedures Procedure Name Priority Date/Time Associated Diagnosis Comments C. DIFF BY PCR Routine 06/28/2025 10:09 AM CDT Diarrhea, unspecified type C. DIFFICILE BY PCR Routine 06/28/2025 10:09 AM CDT Diarrhea, unspecified type CULTURE, BLOOD STAT 06/23/2025 8:40 AM CDT CULTURE, BLOOD STAT 06/23/2025 8:40 AM CDT TROPONIN I, HIGH SENSITIVITY (HSTRP) STAT 06/23/2025 7:[address] ABDOMEN PELVIS W/ CONTRAST Stat with Interpretation 06/23/2025 7:35 AM CDT EKG 12 LEAD STAT 06/23/2025 7:00 AM CDT URINALYSIS REFLEX IF INDICATED BY ABNORMAL RESULTS STAT 06/23/2025 6:02 AM CDT CRITICAL CARE Routine 06/23/2025 6:01 AM CDT CBC WITH AUTO DIFFERENTIAL STAT 06/23/2025 5:55 AM CDT TROPONIN I, HIGH SENSITIVITY (HSTRP) STAT 06/23/2025 5:55 AM CDT LIPASE STAT 06/23/2025 5:55 AM CDT CMP (COMPREHENSIVE METABOLIC PANEL) STAT 06/23/2025 5:55 AM CDT COMPLETE BLOOD COUNT (CBC) WITH DIFF STAT 06/23/2025 5:55 AM CDT EKG SCAN 06/23/2025 12:00 AM CDT DAMIEN SCREENING BILATERAL DIGITAL W CAD W RUT Routine 06/20/2025 9:10 AM CDT Visit for screening mammogram from Last 3 Months Results * C. DIFF BY PCR (06/28/2025 10:09 AM CDT) C DIFF TOXIN DNA BY PCR Negative Negative, Invalid 06/28/2025 11:48 AM CDT [facility] Other STOOL SPECIMEN / Unknown Non-Phlebotomy Collection / Unknown 06/28/2025 10:09 AM CDT 06/28/2025 11:00 AM CDT us Not On File Provider MICROBIOLOGY - GENERAL ORDE RABLES Final Result [facility] [address] [place] [address] * Culture, Blood (06/23/2025 8:40 AM CDT) Only the most recent of2 resultswithin the time period is included. [facility] CULTURE RESULTS NO GROWTH WITHIN 5 DAYS, FINAL RESULT 06/28/2025 9:00 AM CDT [facility] Culture BLOOD SPECIMEN / Unknown Venipuncture / Unknown 06/23/2025 8:40 AM CDT 06/23/2025 8:54 AM CDT us Jarek Estrada DO MICROBIOLOGY - GENERAL ORDERABLES Final Result [facility] [address] [place] [address], * TROPONIN I, HIGH SENSITIVITY (HSTRP) (06/23/2025 7:58 AM CDT) Only the most recent of2 resultswithin the time period is included. [facility] TROPONIN I, HIGH SENSITIVITY- [place] <2.7 <=14.0 ng/L 06/23/2025 8:33 AM CDT [facility] Comment: High-sensitivity troponin I results are reported in ng/L making the result appear to be 1,000 times higher than the contemporary troponin I value which is reported in ng/ml. Results from [place]. Blood Venipuncture / Unknown 06/23/2025 7:58 AM CDT 06/23/2025 8:08 AM CDT us Jarek Estrada DO CHEMISTRY ORDERABLES Fi nal Result [facility] [address] [place] [address] * CT ABDOMEN PELVIS W/ CONTRAST (06/23/2025 7:35 AM CDT) Anatomical Region Laterality Modality Abdomen N/A Computed Tomogra phy 06/23/2025 7:35 AM CDT Impressions 06/23/2025 8:11 AM CDT Impression: 1. Findings highly suspicious for a perforated marginal ulcer at the gastrojejunal anastomosis. Moderate volume free intraperitoneal air. Surgical consultation is recommended. 2. Small volume free fluid. No organized/drainable fluid collection demonstrated. RESULTS COMMUNICATION: Direct phone communication of results and all acute medical imaging concerns were discussed with Dr. Estrada and acknowledged. 06/23/2025 8:08 AM Narrative 06/23/2025 8:11 AM CDT DICTATING PHYSICIAN: Cecilio Reyes M.D. - [facility] Examination: CT abdomen and pelvis with contrast. Clinical Information: 40-year-old female with history of abdominal pain. Prior gastric bypass. Comparison: 11/29/2023. Technique: IV contrast: 91 mL of Isovue-300. Enteric contrast: Oral contrast: None. Technical comments: Standard technique. Dose reduction: This CT exam was performed using one or more of the following dose-reduction techniques: Automated exposure control, adjustment of the mA and/or kV according to patient size, and/or use of iterative reconstruction technique.Radiation dose reduction techniques were employed. CTDIvol: 2.9 - 8.7 mGy. DLP: 800 mGy- cm. Findings: LOWER CHEST The heart is normal in size. No pericardial effusion. Mild bibasilar atelectasis. No pleural effusion. UPPER ABDOMEN Liver and bile ducts: The liver is morphologically normal. No focal suspicious hepatic lesion. The portal vein and hepatic veins are patent. No biliary dilatation. Gallbladder: Prior cholecystectomy. Pancreas: Normal in morphology. No peripancreatic inflammatory changes. Spleen: Normal. RETROPERITONEUM Adrenals: Normal. Kidneys: Normal in morphology and symmetrically enhance. No focal suspicious renal lesion. There is no hydronephrosis or ureterectasis, bilaterally. Lymph nodes: No suspicious lymphadenopathy in the abdomen or pelvis. BOWEL AND PERITONEUM Postoperative changes from Rex-en-Y gastric bypass. Circumferential wall thickening involving the proximal jejunum, at and immediately distal to the gastrojejunal anastomosis. There are a few bubbles of gas which appear extraluminal near the GJ anastomotic suture line along with additional bubbles of gas within the lesser sac. Moderate volume free intraperitoneal air. Findings are highly suspicious for a perforated marginal ulcer at/near the gastrojejunal anastomosis. The bypassed gastric remnant compressed. The duodenum appears normal and crosses midline. The remainder of the small marked bowel is normal in caliber and wall thickness. There is no evidence of a small or large bowel obstruction. Mild colonic diverticulosis without evidence of diverticulitis. The terminal ileum is normal. The appendix is normal. Small volume free fluid. No organized/drainable fluid collection identified at this time. VASCULATURE There is no abdominal aortic aneurysm. The IVC is normal in caliber and is patent. The renal veins are patent. The mesenteric veins are patent. PELVIS Prior hysterectomy. No suspicious adnexal lesions demonstrated. The urinary bladder is normal. No intraluminal calculus identified. BONES AND SOFT TISSUES No acute or suspicious osseous lesion demonstrated. Focal degenerative disc disease at L5-S1. Procedure Note Cecilio Reyes MD - 06/23/2025 DICTATING PHYSICIAN: Cecilio Re[facility] M.D. - [facility] Examination: CT abdomen and pelvis with contrast. Clinical Information: 40-year-old female with history of abdominal pain.Prior gastric bypass. Comparison: 11/29/2023. Technique: IV contrast: 91 mL of Isovue-300. Enteric contrast: Oral contrast: None. Technical comments: Standard technique. Dose reduction: This CT exam was performed using one or more of thefollowing dose-reduction techniques: Automated exposure control,adjustment of the mA and/or kV according to patient size, and/or use ofiterative reconstruction technique.Radiation dose reduction techniqueswere employed. CTDIvol: 2.9 - 8.7 mGy. DLP: 800 mGy-cm. Findings: LOWER CHEST The heart is normal in size. No pericardial effusion. Mild bibasilaratelectasis. No pleural effusion. UPPER ABDOMEN Liver and bile ducts: The liver is morphologically normal. No focalsuspicious hepatic lesion. The portal vein and hepatic veins are patent.No biliary dilatation. Gallbladder: Prior cholecystectomy. Pancreas: Normal in morphology. No peripancreatic inflammatorychanges. Spleen: Normal. RETROPERITONEUM Adrenals: Normal. Kidneys: Normal in morphology and symmetrically enhance. No focalsuspicious renal lesion. There is no hydronephrosis or ureterectasis,bilaterally. Lymph nodes: No suspicious lymphadenopathy in the abdomen or pelvis. BOWEL AND PERITONEUM Postoperative changes from Rex-en-Y gastric bypass. Circumferential wallthickening involving the proximal jejunum, at and immediately distal tothe gastrojejunal anastomosis. There are a few bubbles of gas whichappear extraluminal near the GJ anastomotic suture line along withadditional bubbles of gas within the lesser sac. Moderate volume freeintraperitoneal air. Findings are highly suspicious for a perforatedmarginal ulcer at/near the gastrojejunal anastomosis. The bypassed gastric remnant compressed. The duodenum appears normal andcrosses midline. The remainder of the small marked bowel is normal incaliber and wall thickness. There is no evidence of a small or largebowel obstruction. Mild colonic diverticulosis without evidence ofdiverticulitis. The terminal ileum is normal. The appendix is normal. Small volume free fluid. No organized/drainable fluid collectionidentified at this time. VASCULATURE There is no abdominal aortic aneurysm. The IVC is normal in caliberand is patent. The renal veins are patent. The mesenteric veins arepatent. PELVIS Prior hysterectomy. No suspicious adnexal lesions demonstrated. Theurinary bladder is normal. No intraluminal calculus identified. BONES AND SOFT TISSUES No acute or suspicious osseous lesion demonstrated. Focaldegenerative disc disease at L5-S1. Impression: 1. Findings highly suspicious for a perforated marginal ulcer at thegastrojejunal anastomosis. Moderate volume free intraperitoneal air.Surgical consultation is recommended. 2. Small volume free fluid. No organized/drainable fluid collectiondemonstrated. RESULTS COMMUNICATION: Direct phone communication of results and all acutemedical imaging concerns were discussed with Dr. Estrada and acknowledged.06/23/2025 8:08 AM us Jarek Estrada DO IMG CT ORDERABLES Final Result * EKG 12 LEAD (06/23/2025 7:00 AM CDT) Pathologist [facility] Ventricular Rate 68 BPM EXTERNAL EKG Atrial Rate 68 BPM EXTERNAL EKG P-R Interval 156 ms EXTERNAL EKG QRS Duration 84 ms EXTERNAL EKG Q-T Duration 438 ms EXTERNAL EKG QTC CALCULATION 465 ms EXTERNAL EKG P [place] 37 degrees EXTERNAL EKG R [place] 53 degrees EXTERNAL EKG T [place] 44 degrees EXTERNAL EKG 06/23/2025 7:00 AM CDT Impressions EXTERNAL EKG - 06/23/2025 10:03 PM CDT Normal sinus rhythm Normal ECG When compared with ECG of 08-MAY-2022 09:39, No significant change was found ~ Confirmed by AMANDEEP RANGEL ([id number]) on 06/23/2025 10:03:23 PM Narrative Procedure Note Amandeep Rangel MD - 06/23/2025 IMPRESSION: Normal sinus rhythm Normal ECG When compared with ECG of 08-MAY-2022 09:39, No significant change was found ~ Confirmed by AMANDEEP RANGEL ([id number]) on 06/23/2025 10:03:23 PM us Jarek Estrada DO IMG ECG ORDERABLES Adrianne l Result EXTERNAL EKG * (ABNORMAL) Urinalysis w/ Reflex (06/23/2025 6:02 AM CDT) Pathologist [facility] SPECIFIC GRAVITY 1.015 1.003 - 1.030 06/23/2025 6:18 AM CDT [facility] URINE PH 8.0 5.0 - 9.0 06/23/2025 6:18 AM CDT [facility] WBC ESTERASE Negative Negative 06/23/2025 6:18 AM CDT [facility] NITRITE Negative Negative 06/23/2025 6:18 AM CDT [facility] PROTEIN, RANDOM URINE 15 mg/dL(A) Negative 06/23/2025 6:18 AM CDT [facility] URINE GLUCOSE, QUAL Negative Negative 06/23/2025 6:18 AM CDT [facility] URINE KETONES Negative Negative 06/23/2025 6:18 AM CDT [facility] UROBILINOGEN Normal Normal mg/dL 06/23/2025 6:18 AM CDT [facility] URINE BLOOD Negative Negative elizabeth/ul 06/23/2025 6:18 AM CDT [facility] URINALYSIS COLOR Yellow 06/23/20 6:18 AM CDT [facility] URINALYSIS CLARITY Slightly Cloudy 06/23/2025 6:18 AM CDT [facility] Urine URINE SPECIMEN / Unknown Non-Phlebotomy Collection / Unknown 06/23/2025 6:02 AM CDT 06/23/2025 6:11 AM CDT us Dipak Dempsey MD URINE ORDERABLES Final Re sult [facility] [address] [place] [address] * Critical Care (06/23/2025 6:01 AM CDT) Narrative Jarek Estrada DO - 06/23/2025 6:01 AM CDT Jarek Estrada DO 06/23/2025 9:02 AM Critical Care Performed by: Jarek Estrada DO Authorized by: Jarek Estrada DO Critical care provider statement: Critical care time (minutes): 35 us Jarek Estrada DO PROCEDURE/MINOR SURGICA L ORDERABLES Final Result * (ABNORMAL) CBC with Auto Differential (06/23/2025 5:55 AM CDT) WBC 5.97 4.00 - 12.00 10(3)/mcL 06/23/2025 6:09 AM CDT [facility] RBC 4.43 3.80 - 5.30 10(6)/mcL 06/23/2025 6:09 AM CDT [facility] HEMOGLOBIN (HGB) 14.0 12.0 - 15.8 g/dL 06/23/2025 6:09 AM CDT [facility] HEMATOCRIT (HCT) 41.9 36.0 - 47.0 % 06/23/2025 6:09 AM CDT [facility] MCV 94.6 82.0 - 96.0 fL 06/23/2025 6:09 AM CDT [facility] MCH 31.6 26.0 - 34.0 pg 06/23/2025 6:09 AM CDT [facility] MCHC 33.4 31.0 - 36.0 g/dL 06/23/2025 6:09 AM CDT [facility] PLATELET COUNT 259 140 - 440 10(3)/mcL 06/23/2025 6:09 AM CDT [facility] RDW 11.9 11.8 - 15.5 % 06/23/2025 6:09 AM CDT [facility] MPV 9.9 9.7 - 12.4 fL 06/23/2025 6:09 AM CDT [facility] NEUTROPHILS 46.9(L) 47.0 - 73.0 % 06/23/2025 6:09 AM CDT [facility] LYMPHOCYTES 43.0(H) 18.0 - 42.0 % 06/23/2025 6:09 AM CDT [facility] MONOCYTES 8.2 4.0 - 12.0 % 06/23/2025 6:09 AM CDT [facility] EOSINOPHILS 1.0 0.0 - 5.0 % 06/23/2025 6:09 AM CDT [facility] BASOPHILS 0.7 0.0 - 1.0 % 06/23/2025 6:09 AM CDT [facility] IMMATURE GRANULOCYTE 0.2 0.0 - 0.4 % 06/23/2025 6:09 AM CDT [facility] ABSOLUTE NEUTROPHILS 2.80 1.60 - 7.70 10(3)/mcL 06/23/2025 6:09 AM CDT [facility] ABSOLUTE LYMPHOCYTES 2.57 1.30 - 3.20 10(3)/mcL 06/23/2025 6:09 AM CDT [facility] ABSOLUTE MONOCYTES 0.49 0.20 - 1.00 10(3)/mcL 06/23/2025 6:09 AM CDT [facility] ABSOLUTE EOSINOPHIL 0.06 0.00 - 0.40 10(3)/mcL 06/23/2025 6:09 AM CDT [facility] ABSOLUTE BASOPHILS 0.04 0.00 - 0.10 10(3)/mcL 06/23/2025 6:09 AM CDT [facility] ABSOLUTE IMMATURE GRANULOCYTE 0.01 0.00 - 0.03 10 (3) mcL. 06/23/2025 6:09 AM CDT [facility] NRBC PER 100 WBC 0 06/23/20 25 6:09 AM CDT [facility] Blood Venipuncture / Unknown 06/23/2025 5:55 AM CDT 06/23/2025 6:07 AM CDT Dipak Dempsey MD HEMATOLOGY ORDERABLES Fin al Result [facility] [address] [place] [address] * Lipase (06/23/2025 5:55 AM CDT) LIPASE 43 8 - 78 U/L 06/23/2025 6:29 AM CDT [facility] Blood Venipuncture / Unknown 06/23/2025 5:55 AM CDT 06/23/2025 6:07 AM CDT Dipak Dempsey MD CHEMISTRY ORDERABLES Adrianne l Result [facility] [address] [place] [address] * (ABNORMAL) CMP (06/23/2025 5:55 AM CDT) SODIUM 141 136 - 145 mmol/L 06/23/2025 6:29 AM CDT [facility] POTASSIUM 3.8 3.5 - 5.1 mmol/L 06/23/2025 6:29 AM CDT [facility] CHLORIDE 107 98 - 107 mmol/L 06/23/2025 6:29 AM CDT [facility] CO2, VENOUS 25 22 - 30 mmol/L 06/23/2025 6:29 AM CDT [facility] ANION GAP 12.8 <18.0 mmol/L 06/23/2025 6:29 AM CDT [facility] LAB GLUCOSE 117(H) 70 - 99 mg/dL 06/23/2025 6:29 AM CDT [facility] LAB BUN 14 5 - 18 mg/dL 06/23/2025 6:29 AM CDT [facility] LAB CREATININE, BLOOD 0.73 0.60 - 1.00 mg/dL 06/23/2025 6:29 AM CDT [facility] LAB BUN/CREATININE RATIO 19 12 - 20 ratio 06/23/2025 6:29 AM CDT [facility] LAB TOTAL PROTEIN 7.0 6.0 - 8.0 g/dL 06/23/2025 6:29 AM CDT [facility] LAB ALBUMIN 4.1 3.5 - 5.0 g/dL 06/23/2025 6:29 AM CDT [facility] LAB A/G RATIO 1.4 1.0 - 2.2 06/23/2025 6:29 AM CDT [facility] LAB CALCIUM 9.2 8.7 - 10.5 mg/dL 06/23/2025 6:29 AM CDT [facility] LAB T BILI 1.0 0.2 - 1.2 mg/dL 06/23/2025 6:29 AM CDT [facility] LAB SGOT (AST) 15 <43 U/L 06/23/2025 6:29 AM CDT [facility] LAB SGPT (ALT) 14 <56 U/L 06/23/2025 6:29 AM CDT [facility] LAB ALKALINE PHOSPHATASE 50 40 - 150 U/L 06/23/2025 6:29 AM CDT [facility] GFR, ESTIMATED >60 >=60 06/23/2025 6:29 AM CDT [facility] LAB Comment: Creatinine Clearance is the preferred criteria for selecting drug dose adjustments in renally impaired patients. The GFR is provided as additional pertinent clinical information. GFR is reported in mL/min/1.73 sq m. Calculation based on the 2020 Chronic Kidney Disease Epidemiology Collaboration (CKD-EPI) equation refit without adjustment for race. GFR, EST. >60 >=60 6:29 AM CDT [facility] LAB Comment: Creatinine Clearance is the preferred criteria for selecting drug dose adjustments in renally impaired patients. The GFR is provided as additional pertinent clinical information. GFR is reported in mL/min/1.73 sq m. Calculation based on the 2009 Chronic Kidney Disease Epidemiology Collaboration (CKD-EPI). GFR, EST. NONAFRICAN >60 >=60 06/23/2025 6:29 AM CDT [facility] LAB Comment: Creatinine Clearance is the preferred criteria for selecting drug dose adjustments in renally impaired patients. The GFR is provided as additional pertinent clinical information. GFR is reported in mL/min/1.73 sq m. Calculation based on the 2009 Chronic Kidney Disease Epidemiology Collaboration (CKD-EPI). Blood Venipuncture / Unknown 06/23/2025 5:55 AM CDT 06/23/2025 6:07 AM CDT us Dipak Dempsey MD CHEMISTRY ORDERABLES Adrianne l Result [facility] LAB [address] [place] [address] * EKG SCAN (06/23/2025 12:00 AM CDT) 06/23/2025 us Provider Scan IMG ECG ORDERABLES Final Result RESULTING AGENCY * [facility] SCREENING BILATERAL DIGITAL W CAD W RUT (06/20/2025 9:10 AM CDT) Anatomical Region Laterality Modality breast Bilateral Mammography 06/20/2025 8:40 AM CDT Impressions 06/20/2025 5:58 PM CDT IMPRESSION: There is no mammographic evidence of malignancy. RECOMMENDATION: Annual screening mammography. BI-RADS 1: Negative. Narrative 06/20/2025 5:58 PM CDT [facility] SCREENING BILATERAL DIGITAL W CAD W RUT EXAM DATE: 06/20/2025 9:00 AM HISTORY: 40 years year old Female. Encounter for screening mammogram for malignant neoplasm of breast TECHNIQUE: Standard bilateral mammographic views were obtained. Additional 3D tomographic mammography was also obtained. Current study was also evaluated with a Computer Aided Detection (CAD) system. COMPARISON: There are no previous examinations available for comparison. FINDINGS: There are scattered areas of fibroglandular density. (Category B) No suspicious masses, calcifications, architectural distortion or other findings. Yang Bernabe MD IMG MAMMO ORDERABLES Final Result from Last 3 Months Insurance MEDICAID [facility] PLAN Care Teams Director Part Relationship Specialty Start Date End Date Herbert Jaime, PAC [address] [place] [address] PCP - General Physician Blueprinting Machine Operator 05/08/22 Yang Vinson MD [address] [place] [address] Obstetrics & Gynecology 11/05/16
--- OUTSIDE RECORDS SUMMARY | 2025-08-17 09:05 | XMS_ITS | Encounter Summary ---
Author Organization [facility] Address [address] [place] [address] Phone Care Team Providers Care Platform Attendant Name Role Phone Yang Vinson MD Unavailable [phone] Cesar Tang MD Unavailable [phone] Herbert Jaime [facility] Primary Care Provider [phone] Encounter Details Date Type Department Care Team (Late st Contact Info) Description 06/13/2023 Behavioral Health Patient Survey [facility] [address] [place] [address] Mavis Slaughter, [facility] [address] [place] [address] Social History Tobacco Use Types Packs/Day Years [...] suspected to have Coronavirus/COVID-19? No / Unsure 06/12/2023 11:35 AM CDT documented as of this encounter Plan of Treatment Upcoming Encounters Date Type Department Care Team (Late st Contact Info) Description 08/19/2025 3:00 PM RIDE MECHANIC Office Visit [facility] Medical Group - Family [facility] [place] [address] [place] [address] Karla Gamez, DO [address] [place] [address] documented as of this encounter Goals Goal Patient Goal Type Associated Problems Recent Progress Patient-Stated? Author Behavioral Health Behavioral Health On track(2022 9:44 AM RIDE MECHANIC) Yes Mavis Slaughter, CORY Note: I want to get back with being able to communicate with my significant other and help him to not feel unloved or unappreciated. I also want to be able to deal better with stress/anxiety with grandmother situation, within the next six months. Goal Reviewed today with: patient Readiness to change: Ready to change Department associated with goal: [facility] Steps to achieve goal: Patient to be counseled on stress management, during her 45 min individual therapy sessions, 1-2 times per month. Patient to be counseled on healthy assertive communication skills, during her 45 min therapy sessions, 1-2 times per month Patient encouraged to attend the weekly [facility] group therapy Behavioral Health Behavioral Health On track(2022 9:44 AM RIDE MECHANIC) No Mavis Slaughter, CORY Note: Goal: Gayathri will be able to report improved ability to cope with family/relationship stressors, to an acceptable level, within the next six months Goal Reviewed today with: patient Readiness to change: Ready to change Department associated with goal: [facility] Steps to achieve goal: [...] documented as of this encounter Care Teams Platform Attendant Relationship Specialty Start Date End Date Herbert Jaime, PAC [address] [place] [address] PCP - General Physician Top Stitcher 05/08/22 Yang Vinson MD [address] [place] [address] Obstetrics & Gynecology 11/05/16 Cesar Tang MD [address] [place] [address] Consulting Physician Neurology 12/06/16 08/01/24 documented as of this encounter
--- OUTSIDE RECORDS SUMMARY | 2025-08-17 09:05 | XMS_ITS | Encounter Summary ---
Author Organization [facility] Address [address] [place] [address] Phone Care Team Providers Care Cork Painter And Grader Name Role Phone Yang Vinson MD Unavailable [phone] Cesar Tang MD Unavailable [phone] [facility] Primary Care Provider [phone] Encounter Details Date Type Department Care Team (Late st Contact Info) Description 03/14/2023 Behavioral Health Patient Survey [facility] [address] [place] [address] Mavis Slaughter, [facility] [address] [place] [address] Social History Tobacco Use Types Packs/Day Years [...] suspected to have Coronavirus/COVID-19? No / Unsure 03/14/2023 10:38 AM CDT documented as of this encounter Plan of Treatment Upcoming Encounters Date Type Department Care Team (Late st Contact Info) Description 08/19/2025 3:00 PM SENIOR RESEARCH SCIENTIST Office Visit [facility] Medical Group - Family [facility] [place] [address] [place] [address] Karla Gamez, DO [address] [place] [address] documented as of this encounter Goals Goal Patient Goal Type Associated Problems Recent Progress Patient-Stated? Author Behavioral Health Behavioral Health On track(2022 9:44 AM SENIOR RESEARCH SCIENTIST) Yes Mavis Slaughter LCSW Note: I want to get back with being able to communicate with my significant other and help him to not feel unloved or unappreciated. I also want to be able to deal better with stress/anxiety with grandmother situation, within the next six months. Goal Reviewed today with: patient Readiness to change: Ready to change Department associated with goal: [facility] Steps to achieve goal: Patient to be counseled on stress management, during her 45 min individual therapy sessions, 1-2 times per month. Patient to be counseled on healthy assertive communication skills, during her 45 min therapy sessions, 1-2 times per month Patient encouraged to attend the weekly [facility] group therapy Behavioral Health Behavioral Health On track(2022 9:44 AM SENIOR RESEARCH SCIENTIST) No Mavis Slaughter, CORY Note: Goal: Gayathri will be able to report improved ability to cope with family/relationship stressors, to an acceptable level, within the next six months Goal Reviewed today with: patient Readiness to change: Ready to change Department associated with goal: [facility] Steps to achieve [...] documented as of this encounter Care Teams Cork Painter And Grader Relationship Specialty Start Date End Date Herbert Jaime, PAC [address] [place] [address] PCP - General Physician Night Filler 05/08/22 Yang Vinson MD [address] [place] [address] Obstetrics & Gynecology 11/05/16 Cesar Tang MD [address] [place] [address] Consulting Physician Neurology 12/06/16 08/01/24 documented as of this encounter
--- OUTSIDE RECORDS SUMMARY | 2025-08-17 09:05 | XMS_ITS | Encounter Summary ---
Author Organization [facility] Address [address] [place] [address] Phone Care Team Providers Care Roller Shop Supervisor Name Role Phone Yang Vinson MD Unavailable [phone] Herbert Jaime Primary Care Provider [phone] Encounter Details Date Type Department Care Team (Late Contact Info) Description 06/24/2025 Telephone [facility] [address] [place] [phone] Herbert Jaime, PAC [address] [place] [address] Social History Tobacco Use Types Packs/Day Years [...] on file documented as of this encounter Plan of Treatment Upcoming Encounters Date Type Department Care Team (Late Contact Info) Description 08/19/2025 3:00 PM PETROLOGIST [facility] Visit [facility] - [place] [address] [place] [address] Karla Gamez, DO [address] [place] [address] documented as of this encounter Goals Goal Patient Goal Type Associated Problems Recent Progress Patient-Stated? Author Behavioral Health Behavioral Health On track(2022 9:44 AM PETROLOGIST) Yes Mavis Slaughter, CORY Note: I want to get back with being able to communicate with my significant other and help him to not feel unloved or unappreciated. I also want to be able to deal better with stress/anxiety with grandmother situation, within the next six months. Goal Reviewed today with: patient Readiness to change: Ready to change Department associated with goal: [facility] Steps to achieve goal: Patient to be counseled on stress management, during her 45 min individual therapy sessions, 1-2 times per month. Patient to be counseled on healthy assertive communication skills, during her 45 min therapy sessions, 1-2 times per month Patient encouraged to attend the weekly [facility] group therapy Behavioral Health Behavioral Health On track(2022 9:44 AM PETROLOGIST) No Mavis Slaughter, CORY Note: Goal: Gayathri will be able to report improved ability to cope with family/relationship stressors, to an acceptable level, within the next six months Goal Reviewed today with: patient Readiness to change: Ready to change Department associated with goal: [facility] Steps to achieve [...] Indicated Resolved Time C. difficile Rule-Out 06/27/2025 06/28/202506/28/ 2025 11:48 AM CDT Assessment Noted Time PHQ-9 Depression Total Score: 0 09/04/20 23 2:08 PM PETROLOGIST documented as of this encounter Care Teams Roller Shop Supervisor Relationship Specialty Start Date End Date Herbert Jaime, PAC [address] [place] [address] PCP - General Physician Cmo 05/08/22 Yang Vinson MD [address] [place] [address] Obstetrics & Gynecology 11/05/16 documented as of this encounter
--- OUTSIDE RECORDS SUMMARY | 2025-08-17 09:05 | XMS_ITS | Encounter Summary ---
Author Organization [facility] Address [address] [place] [address] Care Team Providers Care Trimming Inspector Name Role Phone AddisonHerbert Cedric Primary Care Provider [phone] Joanna Bond [facility] Unavailable Unavailable Reason for Visit * Reason Onset Date Comments MEDICATION REFILL 06/12/2024 Encounter Details Date Type Department Care Team (Late st Contact Info) Description 06/12/2024 Refill [facility] Health Behavioral Health [address] [place] [address] Vivek Cowan, CRIMINAL JUDGE-PROFESSOR OF PSYCHIATRY [address] [place] [address] MEDICATION REFILL Social History Tobacco Use Types Packs/Day Years Used Date Smoking Tobacco: Former Cigarettes 0.3 10 0 12/24/2000 - 12/24/2010 Smokeless Tobacco: Never Alcohol Use Standard Drinks/Week Comments Not Currently 0 (1 standard drink = 0.6 oz pur e alcohol) AUDIT-C Answer Date Recorded Q1: How often do you have a drink containing alcohol? Never 05/18/2024 Q2: How many drinks containi ng alcohol do you have on a typical day when you are drinking? Patient does not drink Q3: How often do you have si x or more drinks on one occasion? Never 05/18/2024 Overall Financial Resource Strain (CARDIA) Answe r Date Recorded How hard is it for you to pa y for the very basics like food, housing, medical care, and heating? Not hard at all 10/29/2022 PHQ-2 Answer Date Recorded Patient Health Questionnaire-2 Score 0 05/31/2024 [facility] [place] [facility] Occupat ional Health - Occupational Stress Questionnaire Answer Date Recorded Do you feel stress - tense, restless, nervous, or anxious, or unable to sleep at night because your mind is troubled all the time - these days? Not at all 10/29/2022 Hunger Vital Sign Answer Date Recorded Within the past 12 months, y ou worried that your food would run out before you got the money to buy more. Never true 10/29/19 23 Within the past 12 months, t he food you bought just didn't last and you didn't have money to get more. Never true 10/29/2022 PRAPARE - Transportation Answer Date Re corded In the past 12 months, has l ack of transportation kept you from medical appointments or from getting medications? No 10/16 In the past 12 months, has l ack of transportation kept you from meetings, work, or from getting things needed for daily living? No 10/29/2022 Housing Stability Vital Sign Answer Steve e Recorded In the last 12 months, was t here a time when you were not able to pay the mortgage or rent on time? No 10/29/2022 In the last 12 months, how many places have you lived? 1 10/29/2022 In the last 12 months, was t here a time when you did not have a steady place to sleep or slept in a longterm (including now)? No 10/29/2022 Comments No Sex and Gender Information Value Date Recorded Sex Assigned at Female 08/25/2024 12:46 PM FIELD SERVICE REP Legal Sex Female 6:03 AM FIELD SERVICE REP Gender Identity Female 08/25/2024 12:46 PM FIELD SERVICE REP Sexual Orientation Not on file documented as of this encounter Functional Status * Is person deaf or have serious hearing difficulty? Answer Date of Assessment Author No 05/18/2024 3:54 PM CDHaramn Danielson RN * Is person blind or have serious difficulty seeing? Answer Date of Assessment Author No 05/18/2024 3:54 PM Harman Strauss RN * Does person have serious difficulty walking/climbing stairs? Answer Date of Assessment Author No 05/18/2024 3:54 PM Harman Strauss RN * Does person have difficulty dressing/bathing? Answer Date of Assessment Author No 05/18/2024 3:54 PM Harman Strauss RN * Does person have difficulty doing errands alone? Answer Date of Assessment Author No 05/18/2024 3:54 PM Harman Strauss RN documented as of this encounter Mental Status * Does person have difficulty concentrating/remembering/making decisions? Answer Entry Date Author No 05/18/2024 3:54 PM Harman Strauss RN documented in this encounter Plan of Treatment Upcoming Encounters Date Type Department Care Team (Latest Contact Info) Description 08/22/2025 9:00 AM FIELD SERVICE REP Hospital Encounter [facility] - Endoscopy Surgery [address] [address] Conner Crisostomo, DO [address] [place] [address] Surgery General 08/22/2025 9:00 AM FIELD SERVICE REP Procedure visit [facility] [address], [address] [place] [address] Conner Crisostomo, DO [address] [place] [address] 08/22/2025 9:00 AM FIELD SERVICE REP - 08/22/2025 9:20 AM FIELD SERVICE REP Surgery [facility] - Endoscopy Surgery [address] [address] Conner Crisostomo, DO [address] [place] [address] ESOPHAGOGASTRODUODENOSCOPY (EGD) DIAGNOSTIC 10/10/2025 9:20 AM FIELD SERVICE REP Video Visit [facility] [address] [place] [phone] Vivek Cowan, CRIMINAL JUDGE-PROFESSOR OF PSYCHIATRY [address] [place] [address] 10/31/2025 11:00 AM FIELD SERVICE REP Office Visit [facility] [address] [place] [address] Conner Crisostomo, [address] [place] [address] Scheduled Procedures Name Priority Associated Diagnoses Date/Ti me ESOPHAGOGASTRODUODENOSCOPY ( EGD) DIAGNOSTIC 08/22/2025 9:00 AM FIELD SERVICE REP documented as of this encounter Visit Diagnoses Not on filedocumented in this encounter Care Teams Trimming Inspector Relationship Specialty Start Date End Date Herbert Jaime [address] [place] [phone] PCP - General 10/30/22 Joanna Bond LCPC Behavioral Health Therapist Behavioral Health 09/30/23 documented as of this encounter
--- OUTSIDE RECORDS SUMMARY | 2025-08-17 09:05 | XMS_ITS | Encounter Summary ---
Author Organization [facility] Health Address [address] [place] [address] Care Team Providers Care Electric Range Assembler Name Role Phone Herbert Jaime Primary Care Provider [phone] Joanna Bond [facility] Unavailable Unavailable Encounter Details Date Type Department Care Team (Latest Contact Info) Description 08/16/2025 Travel Social History Tobacco Use Types Packs/Day Years Used Date Smoking Tobacco: Former Cigarettes 0.3 10 0 12/24/2000 - 12/24/2010 Smokeless Tobacco: Never Alcohol Use Standard Drinks/Week Comments Not Currently 0 (1 standard drink = 0.6 oz pur e alcohol) AUDIT-C Answer Date Recorded Q1: How often do you have a drink containing alcohol? Never 06/23/2025 Q2: How many drinks containi ng alcohol do you have on a typical day when you are drinking? Patient does not drink Q3: How often do you have si x or more drinks on one occasion? Never 06/23/2025 Overall Financial Resource Strain (CARDIA) Answe r Date Recorded How hard is it for you to pa y for the very basics like food, housing, medical care, and heating? Not hard at all 06/23/2025 PHQ-2 Answer Date Recorded Patient Health Questionnaire-2 Score 0 07/15/2025 [facility] [place] [facility] Occupat ional [facility] - Occupational Stress Questionnaire Answer Date Recorded Do you feel stress - tense, restless, nervous, or anxious, or unable to sleep at night because your mind is troubled all the time - these days? Not at all 06/23/2025 Hunger Vital Sign Answer Date Recorded Within the past 12 months, y ou worried that your food would run out before you got the money to buy more. Never true 06/23/20 25 Within the past 12 months, t he food you bought just didn't last and you didn't have money to get more. Never true 06/23/2025 PRAPARE - Transportation Answer Date Re corded In the past 12 months, has l ack of transportation kept you from medical appointments or from getting medications? No 05/2025 In the past 12 months, has l ack of transportation kept you from meetings, work, or from getting things needed for daily living? No 06/23/2025 Housing Stability Vital Sign Answer Steve e [...] place to sleep or slept in a long-term (including now)? No 10/29/2022 Housing Stability Vital Sign Answer Steve e Recorded In the last 12 months, was t here a time when you were not able to pay the mortgage or rent on time? No 06/23/2025 In the past 12 months, how m any times have you moved where you were living? 0 06/23/2025 At any time in the past 12 m [facility], were you homeless or living in a long-term (including now)? No 06/23/2025 Comments No Sex and Gender Information Value Date Recorded Sex Assigned at Female 08/25/2024 12:46 PM HEEL GUMMER Legal Sex Female 6:03 AM HEEL GUMMER Gender Identity Female 08/25/2024 12:46 PM HEEL GUMMER Sexual Orientation Not on file documented as of this encounter Functional Status * Is person deaf or have serious hearing difficulty? Answer Date of Assessment Author No 06/24/2025 10:22 AM CDVivek Viera, RN * Is person blind or have serious difficulty seeing? Answer Date of Assessment Author No 06/24/2025 10:22 AM Vivek Gudino RN * Does person have serious difficulty walking/climbing stairs? Answer Date of Assessment Author No 06/24/2025 10:22 AM Vivek Gudino RN * Does person have difficulty dressing/bathing? Answer Date of Assessment Author No 06/24/2025 10:22 AM Vivek Gudino RN * Does person have difficulty doing errands alone? Answer Date of Assessment Author No 06/24/2025 10:22 AM Vivek Gudino RN documented as of this encounter Mental Status * Does person have difficulty concentrating/remembering/making decisions? Answer Entry Date Author No 06/24/2025 10:22 AM Vivek Gudino RN documented in this encounter Plan of Treatment Upcoming Encounters Date Type Department Care Team (Latest Contact Info) Description 08/22/2025 9:00 AM HEEL GUMMER Hospital Encounter [facility] - Endoscopy Surgery [address] [address] Conner Crisostomo, DO [address] [place] [phone] Surgery General 08/22/2025 9:00 AM HEEL GUMMER Procedure visit [facility] [address], [address] [place] [phone] Conner Crisostomo, DO [address] [place] [phone] 08/22/2025 9:00 AM HEEL GUMMER - 08/22/2025 9:20 AM HEEL GUMMER Surgery [facility] - Endoscopy Surgery [address] [address] Conner Crisostomo, DO [address] [place] [phone] ESOPHAGOGASTRODUODENOSCOPY (EGD) DIAGNOSTIC 10/10/2025 9:20 AM HEEL GUMMER Video Visit [facility] Health Behavioral Health [address] [place] [phone] Vivek Cowan, AUTOMATIC LATHE TENDER-BAIL AGENT [address] [place] [phone] 10/31/2025 11:00 AM HEEL GUMMER Office Visit [facility] [address], [address] [place] [address] Conner Crisostomo, [address] [place] [address] Scheduled Procedures Name Priority Associated Diagnoses Date/Ti me ESOPHAGOGASTRODUODENOSCOPY ( EGD) DIAGNOSTIC 08/22/2025 9:00 AM HEEL GUMMER documented as of this encounter Visit Diagnoses Not on filedocumented in this encounter Care Teams Electric Range Assembler Relationship Specialty Start Date End Date Herbert Jaime [address] [place] [phone] PCP - General 10/30/22 Joanna Bond [facility] Behavioral [facility] Therapist Behavioral Health 09/30/23 documented as of this encounter
--- OUTSIDE RECORDS SUMMARY | 2025-08-17 09:05 | XMS_ITS | Clinical Summary ---
Author Organization [facility] [employer] Address [address] [place] [address] Care Team Providers Care Mold Blower Name Role Phone Herbert Jaime Primary Care Provider [phone] Joanna Bond [facility] Unavailable Unavailable Source Comments [facility],non-owned Affiliates and Associated Physician Practices is amultiple site organization consisting of ambulatory clinics and hospital sitesin [place], [place], [place] and [place]. This disclosure is being madepursuant to the Care Everywhere program and may not contain all information available regarding this patient. Last updated 18.[facility] [employer] Allergies Active Allergy Reactions Criticality Noted Date Comments Sulfamethoxazole W-Trimethoprim Shortness of Breath High 01/13/2018 Miconazole Nitrate Rash,Swelling Medium 01/13/2018 Swollen in vaginal area Sulfa Drugs Shortness of Breath,Rash High 01/13/2018 Terconazole Swelling 10/24/2022 Trimethoprim Rash Medium 10/24/2022 Medications * This document contains information received from the source organization and may not represent a complete record from that organization. * Be aware that medications may not be up to date on this document. Alwaysverify current medications with the patient. Probiotic Product (codetag) capsuleIndicat ions:Bariatric surgery status Take 1 (one) capsule by mouth once daily 30 capsule 3 3 Active Additional Information Patient not taking.Reported on 07/15/2025 multivitamin with iron (Ultra Solo) capsule Take 1 (one) capsule by mouth once daily Active Premarin 0.625 MG/GM vaginal cream Insert into the vagina every Mon, Tu, Wed, Thur, & Fri Half a gram five times a week 3 Active polyethylene glycol 3350 (MiraLax) 17 g packet Take by mouth once daily At night Active Calcium Citrate-Vitami n D 500-12.5 MG-MCG CHEW Take 1 tablet by mouth 3 times daily Using BA chewy formulation 3 Active acetaminophen (Tylenol) 500 MG tablet Take 2 (two) tablets by mouth every 6 hours Maximum allowable Acetaminophen amount = 4 Grams (4000 mg) / 24 hours. 40 tablet 4 Active buPROPion (Wellbutrin) 100 MG tablet Take 1 (one) tablet to 4.5 (four and one-half) tablets by mouth 2 times daily 200 mg in the morning AND 250 mg in the evening Active nystatin (Mycostatin) 171443 UNIT/GM cream Apply to affected area 2 times daily 30 g 5 Active ondansetron, disintegrating , (Zofran ODT) 4 MG tablet Take 1 (one) tablet by mouth every 6 hours as needed for Nausea/Vomiting Allow tablet to dissolve on the tongue 30 tablet 5 Active pantoprazole EC (Protonix) 40 MG tablet Take 1 (one) tablet by mouth 2 times daily 360 tablet 5 01/01/20 26 Active miSOPROStol (Cytotec) 200 MCG tabletIndicati ons:Gastric Ulcer Take 1 (one) tablet by mouth 2 times daily Reasons: Stomach Ulcer 120 tablet 5 09/02/20 25 Active Active Problems Problem Noted Date Diagnosed Date Perforated bowel 06/23/2025 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 09/29/2023 Generalized anxiety disorder 09/29/2023 Morbid obesity 10/29/2022 Pre-operative clearance 01/30/2018 Herniated nucleus pulposus, L5-S1, right 018 Encounters Date Type Department Care Team Description 08/16/2025 Travel 07/26/2025 Office Visit External [facility] Management Services [address], [address] [place] [address] Conner Crisostomo DO 07/25/2025 Telephone [facility] Health Weight Management Services [address], [address] [place] [address] [facility] Scheduling (EGD) 07/15/2025 10:40 AM CDT Video Visit [facility] Health Behavioral Health [address] [place] [phone] Vivek Cowan, PET HOUSE SITTER-EDI MANAGER Recurrent major depressive disorder, in partial remission ; Generalized anxiety disorder 07/11/2025 Travel 07/08/2025 Telephone [facility] Weight Management Services [address] [place] [address], [address] [place] [address] Conner Crisostomo, DO Pain Abdominal 07/05/2025 Telephone [facility] Weight Management Services [id number] [place] [address], [facility] [address] [place] [address] Conner Crisostomo, DO Medication Prior Auth Request 07/04/2025 9:20 AM CDT Office Visit [facility] Health Weight Management Services [address], [address] [place] [address] Conner Crisostomo DO Gastric ulcer with perforation, unspecified chronicity (HCC) (Primary Dx) 07/04/2025 Travel 06/28/2025 Orders Only [facility] Weight Management Services [address] [place] [address], [facility] [address] [place] [address] Lisbeth Noble RN Gastric ulcer with perforation, unspecified chronicity (HCC) 06/28/2025 Telephone [facility] Health Weight Management Services [address] [place] [address], [address] [place] [address] Lisbeth Noble, RN Returned Call 06/28/2025 Orders Only [facility] Weight Management Services [address] [place] [phone] Lucia Eason, PET HOUSE SITTER-EDI MANAGER Perforated ulcer (HCC) 06/27/2025 Telephone [facility] Health Weight Management Services [address], [address] [place] [address] Lisbeth Noble, RN Follow-up 06/27/2025 Telephone [facility] [address] [place] [phone] Sandra Edwards MD Surgical Follow-up 06/27/2025 Orders Only [facility] [address], [address] [place], [place] [address] Lisbeth Noble, RN 06/27/2025 Telephone [facility] [address] [place], [place] [address] Lisbeth Noble, RN Returned Call 06/26/2025 Refill [facility] [address] [place] [address] [address] Oniel Culp III, MD MEDICATION REFILL 06/23/2025 2:39 PM CDT Anesthesia Event [facility] Op [address] [place] [address] Barney Amos MD Kerley, Lauren M, PET HOUSE SITTER-JOINT CREASER 06/23/2025 2:30 PM CDT - 06/23/2025 3:53 PM CDT Surgery [facility] [place][note 2] Op [address] [place] [address] Conner Crisostomo, DO DIAGNOSTIC LAPAROSCOPY WITH REPAIR OF GASTROJEJUNAL PERFORATION WITH OMENTAL PATCH AND INTERNAL HERNIA REPAIR X2 06/23/2025 12:33 PM CDT - 06/26/2025 11:30 AM CDT Hospital Encounter [facility] 3 Intermediate Care Unit [address] [place] [address] [address] Maryjane Juares MD Tanguturi, Swetha, MD Pardo, Leopoldo Santos III, MD Hospitalist Discharge Disposition: Home or Self Care 06/23/2025 Travel 06/13/2025 9:20 AM CDT Video Visit [facility] Behavioral Health [address] [place] [phone] Vivek Cowan, PET HOUSE SITTER-EDI MANAGER Mild episode of recurrent major depressive disorder ; Generalized anxiety disorder 06/01/2025 Travel from Last 3 Months Family History Medical History Relation Name Comments Anesthesia Reaction Father CAD (Coronary Artery Disease) Father Heart Failure Maternal Grandmother Thyroid Disease Mother Cancer Paternal Grandfather Cancer Paternal Grandmother Anesthesia Reaction Sister Relation Name Status Comments Father Maternal Grandmother Mother Paternal Grandfather Paternal Grandmother Sister Social History Tobacco Use Types Packs/Day Years Used Date Smoking Tobacco: Former Cigarettes 0.3 10 0 12/24/2000 - 12/24/2010 Smokeless Tobacco: Never Tobacco Cessation:Counseling Given: Not Answered Alcohol Use Standard Drinks/Week Comments Not Currently [...] Recorded Patient Health Questionnaire-2 Score 0 07/15/2025 [facility] - Occupational Stress [...] place to sleep or slept in a usp (including now)? No 10/29/2022 Housing Stability Vital Sign Answer Steve e Recorded In the last 12 months, was t here a time when you were not able to pay the mortgage or rent on time? No 06/23/2025 In the past 12 months, how m any times have you moved where you were living? 0 06/23/2025 At any time in the past 12 m [facility], were you homeless or living in a usp (including now)? No 06/23/2025 Comments No Sex and Gender Information Value Date Recorded Sex Assigned at Female 08/25/2024 12:46 PM RESEARCH AND DEVELOPMENT RESEARCHER Legal Sex Female 6:03 AM RESEARCH AND DEVELOPMENT RESEARCHER Gender Identity Female 08/25/2024 12:46 PM RESEARCH AND DEVELOPMENT RESEARCHER Sexual Orientation Not on file Last Filed Vital Signs Vital Sign Reading Time Taken Comments Blood Pressure 111/79 07/04/2025 9:16 AM CDT Pulse 85 07/04/2025 9:16 AM CDT Temperature 36.3 C (97.4 F) 07/04/2025 9:16 AM CDT Respiratory Rate 18 06/26/2025 8:45 AM CDT Oxygen Saturation 98% 07/04/2025 9:16 AM CDT Inhaled Oxygen Concentration - - Weight 77.5 kg (170 lb 12.8 oz) 07/04/2025 9:16 AM CDT Height 175.3 cm (5' 9) 07/04/2025 9:16 AM CDT Body Mass Index 25.22 07/04/2025 9:16 AM CDT Plan of Treatment Upcoming Encounters Date Type Department Care Team (Latest Contact Info) Description 08/22/2025 9:00 AM RESEARCH AND DEVELOPMENT RESEARCHER Hospital Encounter [facility] Surgery [address] [place] [address] Conner Crisostomo, DO [address] [place], [place] [address] Surgery General 08/22/2025 9:00 AM RESEARCH AND DEVELOPMENT RESEARCHER Procedure visit [facility] [address], [address] [place], [place] [address] Conner Crisostomo, DO [address] [place], [place] [address] 08/22/2025 9:00 AM RESEARCH AND DEVELOPMENT RESEARCHER - 08/22/2025 9:20 AM RESEARCH AND DEVELOPMENT RESEARCHER Surgery [facility] - [facility] Surgery [address], [place] [address] Conner Crisostomo, DO [address] [place], [place] [address] ESOPHAGOGASTRODUODENOSCOPY (EGD) DIAGNOSTIC 10/10/2025 9:20 AM RESEARCH AND DEVELOPMENT RESEARCHER Video Visit [facility] Behavioral Health [address] [place] [phone] Vivek Cowan, PET HOUSE SITTER-[facility] [address] [place] [phone] 10/31/2025 11:00 AM RESEARCH AND DEVELOPMENT RESEARCHER Office Visit [facility] Services [address], [address] [place] [address] Conner Crisostomo, DO [address] [place] [address] Scheduled Procedures Name Priority Associated Diagnoses Date/Ti me ESOPHAGOGASTRODUODENOSCOPY ( EGD) DIAGNOSTIC 08/22/2025 9:00 AM RESEARCH AND DEVELOPMENT RESEARCHER Health Maintenance Due Date Last Done Comments DTAP/TDAP/TD VACCINES (1 - Tdap) 2003 HEPATITIS B VACCINE (1 of 3 - 19+ 3-dose series) 2003 HPV VACCINE (1 - 3-dose SCDM series) 2011 COVID-19 VACCINE ( season) 2025 INFLUENZA VACCINE (#1) 2025 MAMMOGRAM 06/20/2027 06/20/2025, 06/20/2025 SCREENING FOR DIABETES 06/26/2028 , 06/24/2025, 06/24/2025, Additional history exists LIPID TESTING 04/16/2030 04/16/2025, 10/2024, 11/29/2023, Additional history exists ZOSTER VACCINE (1 of 2) 2034 HEPATITIS C SCREENING Completed 03/11/2018 HIV SCREENING Completed 03/11/2018 DEPRESSION SCREENING Completed 02/01/2025, 10/31/19 24 HIB VACCINE Aged Out No longer eligi ble based on patient's age to complete this topic MENINGOCOCCAL (Group B) VACCINE SHARED DECISION-MAKING Aged Out No longer eligible based on patient's age to complete this topic MENINGOCOCCAL GROUPS A/C/Y/W VACCINE Aged Out No longer eligible based on patient's age to complete this topic PNEUMOCOCCAL VACCINE Aged Out No long er eligible based on patient's age to complete this topic Medical Devices Implanted Type Area Neonatal Doctor Device Identifier Shelf Expiration Date Model / Serial / Lot Kit Tissue Clsr Duo Tssl 1 Prefl Syr - [id number] Implanted:Qty : 1 on 10/29/2022 by Sandra Edwards MD at [facility] N/A: [employer] 01/13/2024 [id number] / [id number] Procedures Procedure Name Priority Date/Time Associated Diagnosis Comments CARDIAC EKG ORDER 06/27/2025 7:3 4 PM CDT CARDIAC EKG ORDER 06/27/2025 7:3 4 PM CDT CARDIAC RHYTHM STRIP ORDER 06/27/2025 7:34 PM CDT BASIC METABOLIC PANEL (CALCIUM TOTAL) AM Draw 06/26/2025 5:43 AM CDT CBC W/O DIFFERENTIAL AM Draw 06/26/2025 5:43 AM CDT GLUCOSE - POINT OF CARE Routine 06/24/2025 4:01 PM CDT FL UGI SERIES Routine 06/24/2025 9:59 AM CDT Perforated bowel (HCC) CBC W/O DIFFERENTIAL Routine 06/24/2025 5:30 AM CDT Mild episode of recurrent major depressive disorder BASIC METABOLIC PANEL (CALCIUM TOTAL) Routine 06/24/2025 5:30 AM CDT Perforated bowel (HCC) GA LAP,DIAGNOSTIC ABDOMEN 06/23/2025 2:29 PM CDT GLUCOSE - POINT OF CARE Routine 06/23/2025 2:18 PM CDT HCG BLOOD QUALITATIVE STAT 06/23/2025 1:17 PM CDT TYPE + SCREEN PANEL STAT 06/23/2025 1 :15 PM CDT COMPREHENSIVE METABOLIC PANEL STAT 06/23/2025 1:15 PM CDT CBC W AUTO DIFFERENTIAL STAT 06/23/2025 1:15 PM CDT EKG 12-LEAD STAT 06/23/2025 1:07 PM CDT Perforated bowel (HCC) LIPID PROFILE Routine 04/16/2025 Status post gastric bypass for obesity History of morbid obesity History of hypercholesterolem ia Bariatric surgery status HEPATITIS C AB SCREEN RFLX NAAT QUANT STAT 03/11/2018 5:50 PM CDT HIV-1 HIV-2 ANTIGEN/ANTIBODY STAT 03/11/2018 5:50 PM CDT from Last 3 Months or Most Recently Relevant to Health Maintenance Results * CARDIAC EKG ORDER (06/27/2025 7:34 PM CDT) Only the most recent of2 resultswithin the time period is included. Narrative 06/27/2025 7:34 PM CDT Ordered by an unspecified provider. us Scanned Document CARDIAC SERVICES ORDERABLES Fin al Result * CARDIAC RHYTHM STRIP ORDER (06/27/2025 7:34 PM CDT) Narrative 06/27/2025 7:34 PM CDT Ordered by an unspecified provider. us Scanned Document CARDIAC SERVICES ORDERABLES Fin al Result * CBC W/O DIFFERENTIAL (06/26/2025 5:43 AM CDT) Only the most recent of2 resultswithin the time period is included. [facility] WBC 8.2 4.0 - 10.7 x10E9/L 06/26/2025 5:50 AM CDT [facility] RBC Count 3.95 3.90 - 5.20 x10E12/L 06/26/2025 5:50 AM CDT [facility] Hemoglobin 12.4 11.9 - 15.8 g/dL 06/26/2025 5:50 AM CDT [facility] Hematocrit 38.5 34.8 - 46.1 % 06/26/2025 5:50 AM CDT [facility] MCV 97.5 80.0 - 98.0 fL 06/26/2025 5:50 AM CDT [facility] MCH 31.4 26.7 - 33.6 pg 06/26/2025 5:50 AM CDT [facility] MCHC 32.2 31.7 - 36.3 g/dL 06/26/2025 5:50 AM CDT [facility] RDW-CV 12.1 11.3 - 14.8 % 06/26/2025 5:50 AM CDT [facility] Platelet Count 200 150 - 420 x10E9/L 06/26/2025 5:50 AM CDT [facility] MPV 9.9 7.8 - 11.4 fL 06/26/2025 5:50 AM CDT [facility] Blood BLOOD SPECIMEN / Unknown Lab Venipuncture / Unknown 06/26/2025 5:43 AM CDT 06/26/2025 5:46 AM CDT Oniel Culp III, MD LAB - HEMATOLOGY O RDERABLES Final Result [facility] [address] [id number] * (ABNORMAL) BASIC METABOLIC PANEL (CALCIUM TOTAL) (06/26/2025 5:43 AM CDT) Only the most recent of2 resultswithin the time period is included. [facility] Glucose 87 70 - 99 mg/dL 06/26/2025 6:06 AM [facility] Sodium 137 136 - 145 mmol/L 06/26/2025 6:06 AM [facility] Potassium 3.4(L) 3.5 - 5.1 mmol/L 06/26/2025 6:06 AM [facility] Chloride 106 98 - 107 mmol/L 06/26/2025 6:06 AM [facility] CO2 18(L) 22 - 29 mmol/L 06/26/2025 6:06 AM [facility] Calcium 8.7 8.4 - 10.4 mg/dL 06/26/2025 6:06 AM [facility] Anion Gap 13 6 - 16 mmol/L 06/26/2025 6:06 AM [facility] BUN 11 5.3 - 18.7 mg/dL 06/26/2025 6:06 AM [facility] Creatinine 0.51 0.50 - 1.10 mg/dL 06/26/2025 6:06 AM [facility] eGFR by CKD-EPI >90 >=90 mL/min/1.7 3 m2 06/26/2025 6:06 AM [facility] Comment:Estimated Glomerular Filtration Rate (eGFR) calculated using the CKD-EPI Creatinine Equation (2020), per the National Kidney Foundation and [place] Society of Nephrology recommendations. Blood BLOOD SPECIMEN / Unknown Lab Venipuncture / Unknown 06/26/2025 5:43 AM CDT 06/26/2025 5:47 AM CDT Oniel Culp III, MD LAB - CHEMISTRY OR DERABLES Final Result [facility] [address] [address] * (ABNORMAL) GLUCOSE - POINT OF CARE (06/24/2025 4:01 PM CDT) Only the most recent of2 resultswithin the time period is included. Pathologist [facility] Glucose WB/POC 109(H) 70 - 99 mg/dL 06/24/2025 9:04 PM CDT [facility] Specimen Type Arterial/C apillary 06/24/2025 9:04 PM CDT [facility] Blood BLOOD SPECIMEN / Unknown 06/24/2025 4:01 PM CDT 06/24/2025 9:04 PM CDT Oniel Culp III, MD LAB - POINT OF CAR E ORDERABLES Final Result Performing Organization Address City/[facility]/ZIP Co de Phone Number [facility] [address] [address] * FL FLUORO UGI SERIES (06/24/2025 9:59 AM CDT) Anatomical Region Laterality Modality Abdomen Radiographic Elaine ging 06/24/2025 3:59 PM CDT Impressions 06/24/2025 4:03 PM CDT IMPRESSION: 1. Rex-en-Y gastric bypass surgery. No evidence of a postoperative leak. > Interpreting Provider: Conner Enriquez DO on 06/24/2025 4:03 PM Narrative 06/24/2025 4:03 PM CDT PROCEDURE: FL UGI SERIES DATE/TIME OF EXAM: 06/24/2025 10:02 AM CLINICAL INFORMATION: Status post repair of a gastrojejunal perforation with omental patch. Repair internal hernia. COMPARISON: None. TECHNIQUE: Patient ingested 50 cc Isovue-370 contrast. 218 images were obtained including video format. 0.8 minutes of fluoroscopy time. FINDINGS: Nondilated distal esophagus empties appropriately into the gastric pouch and subsequently through the gastrojejunostomy into the Rex loop. No contrast extravasation is identified to indicate a leak. The Rex loop was not dilated. No large hiatal hernia reflux was witnessed. FLUOROSCOPY DOSE: 16.1 mGy Reference air kerma (ka,r). Procedure Note Conner Enrqiuez DO - 06/24/2025 PROCEDURE: FL UGI SERIES DATE/TIME OF EXAM: 06/24/2025 10:02 AM CLINICAL INFORMATION: Status post repair of a gastrojejunal perforation with omental patch. Repair internal hernia. COMPARISON: None. TECHNIQUE: Patient ingested 50 cc Isovue-370 contrast. 218 images were obtained including video format. 0.8 minutes of fluoroscopy time. FINDINGS: Nondilated distal esophagus empties appropriately into the gastric pouch and subsequently through the gastrojejunostomy into the Rex loop. No contrast extravasation is identified to indicate a leak. The Rex loopwas not dilated. No large hiatal hernia reflux was witnessed. FLUOROSCOPY DOSE: 16.1 mGy Reference air kerma (ka,r). IMPRESSION: 1. Rex-en-Y gastric bypass surgery. No evidence of a postoperativeleak. > Interpreting Provider: Conner Enriquez DO on 06/24/2025 4:03 PM Conner Crisostomo DO FLUOROSCOPY ORDERABLES Adrianne l Result * HCG BLOOD QUALITATIVE (06/23/2025 1:17 PM CDT) HCG Qual Serum Negative Negative 06/23/2025 1:39 PM CDT [facility] Blood BLOOD SPECIMEN / Unknown Venipuncture / Unknown 06/23/2025 1:17 PM CDT 06/23/2025 1:22 PM CDT Narrative [facility] - 06/23/2025 1:39 PM CDT Specimens containing human anti-mouse antibodies may exhibit false positive or false negative results. If qualitative interpretation is inconsistent with clinical evaluation, consider confirmation by an alternative hCG method. Maryjane Juares MD LAB - CHEMISTRY ORDERABLES Fi nal Result [facility] [address] [id number] * TYPE + SCREEN PANEL (06/23/2025 1:15 PM CDT) Pathologist [facility] ABO Rh A POS 06/23/2025 1:59 PM CDT [facility] Comment:History checked. Antibody Screen NEG 1:59 PM CDT [facility] Blood Bank BLOOD SPECIMEN / Unknown Venipuncture / Unknown 06/23/2025 1:15 PM CDT 06/23/2025 1:22 PM CDT us Maryjane Juares MD LAB - BLOOD BANK ORDERABLES F inal Result [facility] [address] [place] [place] [address], [facility] [phone] * (ABNORMAL) CBC W AUTO DIFFERENTIAL (06/23/2025 1:15 PM CDT) Pathologist [facility] WBC 13.3(H) 4.0 - 10.7 x10E9/L 06/23/2025 1:25 PM CDT [facility] RBC Count 4.27 3.90 - 5.20 x10E12/L 06/23/2025 1:25 PM CDT [facility] Hemoglobin 13.5 11.9 - 15.8 g/dL 06/23/2025 1:25 PM CDT [facility] Hematocrit 40.0 34.8 - 46.1 % 06/23/2025 1:25 PM CDT [facility] MCV 93.7 80.0 - 98.0 fL 06/23/2025 1:25 PM CDT [facility] MCH 31.6 26.7 - 33.6 pg 06/23/2025 1:25 PM CDT [facility] MCHC 33.8 31.7 - 36.3 g/dL 06/23/2025 1:25 PM CDT [facility] RDW-CV 11.9 11.3 - 14.8 % 06/23/2025 1:25 PM CDT [facility] Platelet Count 211 150 - 420 x10E9/L 06/23/2025 1:25 PM CDT [facility] MPV 9.9 7.8 - 11.4 fL 06/23/2025 1:25 PM CDT [facility] Neutrophil % 92.0(H) 41.0 - 74.0 % 06/23/2025 1:25 PM CDT [facility] Lymphocyte % 2.9(L) 17.0 - 47.0 % 06/23/2025 1:25 PM CDT [facility] Monocyte % 4.6 3.0 - 11.0 % 06/23/2025 1:25 PM CDT [facility] Eosinophil % 0.0 0.0 - 7.0 % 06/23/2025 1:25 PM CDT [facility] Basophil % 0.1 0.0 - 1.6 % 06/23/2025 1:25 PM CDT [facility] Immature Granulocytes % 0.4 0.0 - 1.0 % 06/23/2025 1:25 PM CDT [facility] Neutrophil Absolute 12.25(H) 1.60 - 7.50 x10E9/L 06/23/2025 1:25 PM CDT [facility] Lymphocyte Absolute 0.39(L) 1.00 - 4.40 x10E9/L 06/23/2025 1:25 PM CDT [facility] Monocyte Absolute 0.61 0.15 - 1.00 x10E9/L 06/23/2025 1:[facility] PM [facility] Eosinophil Absolute 0.00 0.00 - 0.60 x10E9/L 06/23/2025 1:25 PM CDT [facility] Basophil Absolute 0.01 0.00 - 0.13 x10E9/L 06/23/2025 1:25 PM [facility] Blood BLOOD SPECIMEN / Unknown Venipuncture / Unknown 06/23/2025 1:15 PM CDT 06/23/2025 1:22 PM CDT Maryjane Juares MD LAB - HEMATOLOGY ORDERABLES F inal Result [facility] [address] [place] [address] * (ABNORMAL) COMPREHENSIVE METABOLIC PANEL (06/23/2025 1:[address] [facility]) Glucose 131(H) 70 - 99 mg/dL 06/23/2025 1:44 PM [facility] Sodium 140 136 - 145 mmol/L 06/23/2025 1:44 PM [facility] Potassium 4.2 3.5 - 5.1 mmol/L 06/23/2025 1:44 PM [facility] Chloride 107 98 - 107 mmol/L 06/23/2025 1:44 PM [facility] CO2 25 22 - 29 mmol/L 06/23/2025 1:44 PM [facility] Calcium 8.7 8.4 - 10.4 mg/dL 06/23/2025 1:44 PM [facility] Anion Gap 8 6 - 16 mmol/L 06/23/2025 1:44 PM [facility] BUN 13 5.3 - 18.7 mg/dL 06/23/2025 1:44 PM [facility] Creatinine 0.65 0.50 - 1.10 mg/dL 06/23/2025 1:44 PM [facility] Alkaline Phosphatase 42 40 - 150 U/L 06/23/2025 1:44 PM [facility] ALT 12 6 - 57 U/L 06/23/2025 1:44 PM [facility] AST 12 10 - 48 U/L 06/23/2025 1:44 PM [facility] Protein Total 6.6 6.4 - 8.3 gm/dL 06/23/2025 1:44 PM [facility] Albumin 3.6 3.1 - 4.5 gm/dL 06/23/2025 1:44 PM [facility] Bilirubin Total 1.5(H) 0.2 - 1.2 mg/dL 06/23/2025 1:44 PM [facility] eGFR by CKD-EPI >90 >=90 mL/min/1.7 3 m2 06/23/2025 1:44 PM [facility] Comment:Estimated Glomerular Filtration Rate (eGFR) calculated using the CKD-EPI Creatinine Equation (2020), per the National Kidney Foundation and [place] Society of Nephrology recommendations. Blood BLOOD SPECIMEN / Unknown Venipuncture / Unknown 06/23/2025 1:15 PM CDT 06/23/2025 1:22 PM CDT Maryjane Juares MD LAB - CHEMISTRY ORDERABLES Fi nal Result Performing Organization Address City/[facility]/ZIP Co de Phone Number [facility] [address] [address] * EKG 12-LEAD (06/23/2025 1:07 PM CDT) Ventricular Rate 97 BPM [facility] Atrial Rate 97 BPM [facility] P-R Interval 160 ms [facility] QRS Duration ms 86 ms [facility] Q-T Interval ms 356 ms [facility] QTC Calculation (Bezet) 452 ms [facility]USE Calculated P [place] 47 degrees [facility] MUSE Calculated R [place] 40 degrees [facility] MUSE Calculated T [place] 54 degrees [facility] MUSE Interpretation EKG Normal sinus rhythm Nonspecific T wave abnormality Abnormal ECG No previous ECGs available Confirmed by MD ELISE, TETE ([id number]) on 06/23/2025 9:09:22 PM [facility] 06/23/2025 1:07 PM CDT 06/23/2025 9:09 PM CDT Maryjane Juares MD ECG ORDERABLES Edited Result - Final Performing Organization Address [facility] Co de Phone Number [facility] * LIPID PROFILE (04/16/2025) Blood BLOOD SPECIMEN / Unknown 04/16/2025 Yahaira Mckinnon PET HOUSE SITTER-EDI MANAGER LAB - CHEMISTRY ORDERABL ES Final Result Performing Organization Address City/[facility]/ZIP Co de Phone Number OTHER LAB * HIV-1 HIV-2 ANTIGEN/ANTIBODY (03/11/2018 5:50 PM CDT) HIV Antigen/Antibod y 1 & 2 Non-reacti ve Non-react bhavana 03/11/2018 6:46 PM CDT [facility] Comment: Neither HIV-1 p24 Antigen nor HIV-1/HIV-2 Antibodies are detected. Blood BLOOD SPECIMEN / Unknown Venipuncture / Unknown 03/11/2018 5:50 PM CDT 03/11/2018 6:01 PM CDT us Cuca Lilly MD LAB - HEMATOLOGY ORDERABLES Fi nal Result Performing Organization Address [facility] Co de Phone Number [address] [phone] * HEPATITIS C AB SCREEN RFLX PCR QUANT (03/11/2018 5:50 PM CDT) Hepatitis C Antibody Non-react bhavana Non-reac tive 03/11/2018 6:50 PM CDT [facility] Comment: Hepatitis C Antibody screen indicates no serologic evidence of past or current infection with Hepatitis C Virus. Patients with unexplained liver disease who are immunocompromised or suspected of having acute Hepatitis C infection may benefit from Nucleic Acid Test (PIA) for Hepatitis C Viral RNA to confirm Hepatitis C status. Blood BLOOD SPECIMEN / Unknown Venipuncture / Unknown 03/11/2018 5:50 PM CDT 03/11/2018 6:01 PM CDT Cuca Lilly MD LAB - CHEMISTRY ORDERABLES Fin al Result Performing Organization Address [facility] Co de Phone Number [address] [phone] from Last 3 Months or Most Recently Relevant to Health Maintenance Insurance [facility] Advance Directives * Full Code (Latest Code Status on File) Date Activated Date Inactivated Comments 06/23/2025 6:15 PM 06/26/2025 1:04 PM * Full Code Date Activated Date Inactivated Comments 10/29/2022 2:28 PM 10/30/2022 3:15 PM * Full Code Date Activated Date Inactivated Comments 02/26/2018 5:18 PM 02/27/2018 5:30 PM Care Teams Mold Blower Relationship Specialty Start Date End Date Herbert Jaime [address] [place] [id number] PCP - General 10/30/22 Joanna Bond LCPC Behavioral Health Therapist Behavioral Health 09/30/23
--- OUTSIDE RECORDS SUMMARY | 2025-08-17 09:05 | XMS_ITS | Encounter Summary ---
Author Organization [facility] Address [address] [place] [address] Phone Care Team Providers Care Enlisted Aircrew/Aerial Observer/Gunner Name Role Phone Yang Vinson MD Unavailable [phone] Cesar Tang MD Unavailable [phone] Herbert Jaime [facility] Primary Care Provider [phone] Encounter Details Date Type Department Care Team (Late st Contact Info) Description 02/06/2023 Behavioral Health [facility]al Health Services [address] [place] [address] Mavis Slaughter, [facility] [address] [place] [address] Social History Tobacco Use Types Packs/Day Years [...] suspected to have Coronavirus/COVID-19? No / Unsure 02/06/2023 12:31 PM CDT documented as of this encounter Plan of Treatment Upcoming Encounters Date Type Department Care Team (Late st Contact Info) Description 08/19/2025 3:00 PM SYSTEMS ADMINISTRATOR Office Visit [facility] Medical [facility] - Family [facility] [place] [address] [place] [address] Kalra Gamez, DO [address] [place] [address] documented as of this encounter Goals Goal Patient Goal Type Associated Problems Recent Progress Patient-Stated? Author Behavioral Health Behavioral Health On track(2022 9:44 AM SYSTEMS ADMINISTRATOR) Yes Mavis Slaughter LCSW Note: I want to get back with being able to communicate with my significant other and help him to not feel unloved or unappreciated. I also want to be able to deal better with stress/anxiety with grandmother situation, within the next six months. Goal Reviewed today with: patient Readiness to change: Ready to change Department associated with goal: [facility] Steps to achieve goal: Patient to be counseled on stress management, during her 45 min individual therapy sessions, 1-2 times per month. Patient to be counseled on healthy assertive communication skills, during her 45 min therapy sessions, 1-2 times per month Patient encouraged to attend the weekly [facility] group therapy Behavioral Health Behavioral Health On track(2022 9:44 AM SYSTEMS ADMINISTRATOR) No Mavis Slaughter LCSW Note: Goal: Gaytahri will be able to report improved ability to cope with family/relationship stressors, to an acceptable level, within the next six months Goal Reviewed today with: patient Readiness to change: Ready to change Department associated with goal: [facility] Steps to achieve [...] documented as of this encounter Care Teams Enlisted Aircrew/Aerial Observer/Gunner Relationship Specialty Start Date End Date Herbert Jaime, [facility] [address] [place] [address] PCP - General Physician Drying Oven Tender 05/08/22 Yang Vinson MD [address] [place] [address] Obstetrics & Gynecology 11/05/16 Cesar Tang MD [address] [place] [address] Consulting Physician Neurology 12/06/16 08/01/24 documented as of this encounter
--- OUTSIDE RECORDS SUMMARY | 2025-08-17 09:05 | XMS_ITS | Encounter Summary ---
Author Organization [facility] Address [address] [facility] [place] [address] Care Team Providers Care Public Health Assistant Name Role Phone AddisonHerbert Cedric Primary Care Provider [phone] Joanna Bond [facility] Unavailable Unavailable Reason for Visit * Reason Onset Date Comments MEDICATION REFILL 06/26/2025 Encounter Details Date Type Department Care Team (Late st Contact Info) Description 06/26/2025 Refill [facility] PHYSICIAN STD [address] [address] Oniel Culp III, MD [address] [address] MEDICATION REFILL Social History Tobacco Use Types [...] Answer Date Recorded Patient Health Questionnaire-2 Score 1 06/13/2025 [facility] [place] of Occupat ional [facility] - Occupational Stress Questionnaire Answer Date Recorded [...] place to sleep or slept in a nursing home (including now)? No 10/29/2022 Housing Stability Vital Sign Answer Steve e Recorded In the last 12 months, was t here a time when you were not able to pay the mortgage or rent on time? No 06/23/2025 In the past 12 months, how m any times have you moved where you were living? 0 06/23/2025 At any time in the past 12 m [facility], were you homeless or living in a nursing home (including now)? No 06/23/2025 Comments No Sex and Gender Information Value Date Recorded Sex Assigned at Female 08/25/2024 12:46 PM FLAT IRONER Legal Sex Female 6:03 AM FLAT IRONER Gender Identity Female 08/25/2024 12:46 PM FLAT IRONER Sexual Orientation Not on file documented as of this encounter Functional Status * Is person deaf or have serious hearing difficulty? Answer Date of Assessment Author No 06/24/2025 10:22 AM Vivek Gudino RN * Is person blind or have [...] (Latest Contact Info) Description 08/22/2025 9:00 AM FLAT IRONER Hospital Encounter [facility] - Endoscopy Surgery [address] [address] Conner Crisostomo, [address] [phone] Surgery General 08/22/2025 9:00 AM FLAT IRONER Procedure visit [facility] [address], [address] [place] [phone] Conner Crisostomo, [address] [phone] 08/22/2025 9:00 AM FLAT IRONER - 08/22/2025 9:20 AM FLAT IRONER Surgery [facility] - Endoscopy Surgery [address] [address] Conner Crisostomo, DO [address] [address] ESOPHAGOGASTRODUODENOSCOPY (EGD) DIAGNOSTIC 10/10/2025 9:20 AM FLAT IRONER Video Visit [facility] [address] [place] [phone] Vivek Cowan, GROCERY CADDY-REMEDIAL READING TEACHER [address] [place] [address] 10/31/2025 11:00 AM FLAT IRONER Office Visit [facility] [address], [address] [place] [address] Conner Crisostomo, DO [address] [place] [address] Scheduled Procedures Name Priority Associated Diagnoses Date/Ti me ESOPHAGOGASTRODUODENOSCOPY ( EGD) DIAGNOSTIC 08/22/2025 9:00 AM FLAT IRONER documented as of this encounter Visit Diagnoses Not on filedocumented in this encounter Care Teams Public Health Assistant Relationship Specialty Start Date End Date Herbert Jaime [address] [place] [phone] PCP - General 10/30/22 Joanna Bond LCPC Behavioral Health Therapist Behavioral Health 09/30/23 documented as of this encounter
--- OUTSIDE RECORDS SUMMARY | 2025-08-17 09:05 | XMS_ITS | Encounter Summary ---
Author Organization [facility] Address [address] [place] [address] Phone Care Team Providers Care Power Machine Operator Name Role Phone Yang Vinson MD Unavailable [phone] Cesar Tang MD Unavailable [phone] Herbert Jaime [facility] Primary Care Provider [phone] Encounter Details Date Type Department Care Team (Late st Contact Info) Description 12/25/2022 Behavioral Health Patient Survey [facility] Behavioral Health Services [address] [place] [address] Mavis Slaughter, [facility] [address] [place] [address] Social History Tobacco Use Types Packs/Day Years [...] suspected to have Coronavirus/COVID-19? No / Unsure 12/25/2022 2:31 PM CDT documented as of this encounter Plan of Treatment Upcoming Encounters Date Type Department Care Team (Late st Contact Info) Description 08/19/2025 3:00 PM ABSORPTION PLANT OPERATOR HELPER Office Visit [facility] Medical Group - Family [facility] [address] [place] [address] Karla Gamez, DO [address] [place] [address] documented as of this encounter Goals Goal Patient Goal Type Associated Problems Recent Progress Patient-Stated? Author Behavioral Health Behavioral Health On track(2022 9:44 AM ABSORPTION PLANT OPERATOR HELPER) Yes Mavis Slaughter LCSW Note: I want to get back with being able to communicate with my significant other and help him to not feel unloved or unappreciated. I also want to be able to deal better with stress/anxiety with grandmother situation, within the next six months. Goal Reviewed today with: patient Readiness to change: Ready to change Department associated with goal: [facility] Steps to achieve goal: Patient to be counseled on stress management, during her 45 min individual therapy sessions, 1-2 times per month. Patient to be counseled on healthy assertive communication skills, during her 45 min therapy sessions, 1-2 times per month Patient encouraged to attend the weekly [facility] group therapy Behavioral Health Behavioral Health On track(2022 9:44 AM ABSORPTION PLANT OPERATOR HELPER) No Mavis Slaughter LCSW Note: Goal: Gayathri will be able to report improved ability to cope with family/relationship stressors, to an acceptable level, within the next six months Goal Reviewed today with: patient Readiness to change: Ready to change Department associated with goal: [facility] Steps to [...] documented as of this encounter Care Teams Power Machine Operator Relationship Specialty Start Date End Date Herbert Jaime, PAC [address] [place] [address] PCP - General Physician Retail Wireless Sales Representative 05/08/22 Yang Vinson MD [address] [place] [address] Obstetrics & Gynecology 11/05/16 Cesar Tang MD [address] [place] [address] Consulting Physician Neurology 12/06/16 08/01/24 documented as of this encounter
--- OUTSIDE RECORDS SUMMARY | 2025-08-17 09:05 | XMS_ITS | Encounter Summary ---
Author Organization [facility] Address [address] [place] [address] Phone Care Team Providers Care Placing Judge Name Role Phone Yang Vinson MD Unavailable [phone] Ceasr Tang MD Unavailable [phone] Herbert Jaime [facility] Primary Care Provider [phone] Encounter Details Date Type Department Care Team (Late st Contact Info) Description 08/07/2022 Behavioral Health Patient Survey [facility] Behavioral Health Services [address] [place] [address] Mychart, Generic Provider [address] [place] [address] Social History Tobacco Use Types Packs/Day Years [...] suspected to have Coronavirus/COVID-19? No / Unsure 08/07/2022 12:23 PM PC TECHNICIAN documented as of this encounter Plan of Treatment Upcoming Encounters Date Type Department Care Team (Late st Contact Info) Description 08/19/2025 3:00 PM PC TECHNICIAN Office Visit [facility] Medical Group - Family Medicine - [place] [address] [place] [address] Karla Gamez, DO [address] [place] [address] documented as of this encounter Goals Goal Patient Goal Type Associated Problems Recent Progress Patient-Stated? Author Behavioral Health Behavioral Health On track(2022 9:44 AM PC TECHNICIAN) Yes Mavis Slaughter LCSW Note: I want to get back with being able to communicate with my significant other and help him to not feel unloved or unappreciated. I also want to be able to deal better with stress/anxiety with grandmother situation, within the next six months. Goal Reviewed today with: patient Readiness to change: Ready to change Department associated with goal: [facility] Steps to achieve goal: Patient to be counseled on stress management, during her 45 min individual therapy sessions, 1-2 times per month. Patient to be counseled on healthy assertive communication skills, during her 45 min therapy sessions, 1-2 times per month Patient encouraged to attend the weekly [facility] group therapy Behavioral Health Behavioral Health On track(2022 9:44 AM PC TECHNICIAN) No Mavis Slaughter LCSW Note: Goal: Gayathri will be able to report improved ability to cope with family/relationship stressors, to an acceptable level, within the next six months Goal Reviewed today with: patient Readiness to change: Ready to change Department associated with goal: [facility] Steps to [...] documented as of this encounter Care Teams Placing Judge Relationship Specialty Start Date End Date Herbert Jaime, PAC [address] [place] [address] PCP - General Physician Car Repossessor 05/08/22 Yang Vinson MD [address] [address] Obstetrics & Gynecology 11/05/16 Cesar Tang MD [address] [address] Consulting Physician Neurology 12/06/16 08/01/24 documented as of this encounter
--- OUTSIDE RECORDS SUMMARY | 2025-08-17 09:05 | XMS_ITS | Encounter Summary ---
Author Organization [facility] Address [address] [place] [address] Phone Care Team Providers Care Human Resources Analyst Name Role Phone Yang Vinson MD Unavailable [phone] Cesar Tang MD Unavailable [phone] Alex Avilez PAC Primary Care Provider U Herbert Rehman PAC Primary Care Provider [phone] Encounter Details Date Type Department Care Team (Late st Contact Info) Description 03/01/2022 Behavioral Health Patient Survey [facility] Behavioral Health Services [address] [place] [address] Mychart, Generic Provider [address] [place] [address] Social History Tobacco Use Types Packs/Day Years [...] suspected to have Coronavirus/COVID-19? No / Unsure 03/01/2022 10:37 AM CDT documented as of this encounter Plan of Treatment Upcoming Encounters Date Type Department Care Team (Late st Contact Info) Description 08/19/2025 3:00 PM BRIDGE GAME DIRECTOR Office Visit [facility] Medical Group - Family Medicine - [place] [address] [place] [place] [address] Karla Gamez, DO [address] [place] [address] documented as of this encounter Goals Goal Patient Goal Type Associated Problems Recent Progress Patient-Stated? Author Behavioral Health Behavioral Health On track(2022 9:44 AM BRIDGE GAME DIRECTOR) Yes Mavis Slaughter LCSW Note: I want to get back with being able to communicate with my significant other and help him to not feel unloved or unappreciated. I also want to be able to deal better with stress/anxiety with grandmother situation, within the next six months. Goal Reviewed today with: patient Readiness to change: Ready to change Department associated with goal: [facility] Steps to achieve goal: Patient to be counseled on stress management, during her 45 min individual therapy sessions, 1-2 times per month. Patient to be counseled on healthy assertive communication skills, during her 45 min therapy sessions, 1-2 times per month Patient encouraged to attend the weekly [facility] group therapy Behavioral Health Behavioral Health On track(2022 9:44 AM BRIDGE GAME DIRECTOR) No Mavis Slaughter LCSW Note: Goal: Gayathri will be able to report improved ability to cope with family/relationship stressors, to an acceptable level, within the next six months Goal Reviewed today with: patient Readiness to change: Ready to change Department associated with goal: [facility] Steps to achieve [...] documented as of this encounter Care Teams Human Resources Analyst Relationship Specialty Start Date End Date Alex Avilez, [facility] [address] [address] PCP - General Physician Real Estate Teacher 03/16/21 05/07/22 Herbert Jaime, [facility] [address] [place] [address] PCP - General Physician Real Estate Teacher 05/08/22 Yang Vinson MD [address] [address] Obstetrics & Gynecology 11/05/16 Cesar Tang MD [address] [address] Consulting Physician Neurology 12/06/16 08/01/24 documented as of this encounter
--- OUTSIDE RECORDS SUMMARY | 2025-08-17 09:05 | XMS_ITS | Encounter Summary ---
Author Organization [facility] Address [address] [place] [address] Phone Care Team Providers Care Mophead Trimmer And Wrapper Name Role Phone Yang Vinson MD Unavailable [phone] Herbert Jaime Primary Care Provider [phone] Encounter Details Date Type Department Care Team (Latest Contact Info) Description 06/27/2025 [facility] 1 [place] [address] Provider, Unknown UNKNOWN Diarrhea, unspecified type (Primary Dx) Social History Tobacco Use Types Packs/Day Years [...] st Contact Info) Description 08/19/2025 3:00 PM COMPUTATIONAL PHYSICIST Office Visit [facility] - [facility] [address] [place] [address] Karla Gamez, DO [address] [facility] [address] [place] [address] documented as of this encounter Goals Goal Patient Goal Type Associated Problems Recent Progress Patient-Stated? Author Behavioral Health Behavioral Health On track(2022 9:44 AM COMPUTATIONAL PHYSICIST) Yes Mavis Slaughter, CORY Note: I want to get back with being able to communicate with my significant other and help him to not feel unloved or unappreciated. I also want to be able to deal better with stress/anxiety with grandmother situation, within the next six months. Goal Reviewed today with: patient Readiness to change: Ready to change Department associated with goal: [facility] Steps to achieve goal: Patient to be counseled on stress management, during her 45 min individual therapy sessions, 1-2 times per month. Patient to be counseled on healthy assertive communication skills, during her 45 min therapy sessions, 1-2 times per month Patient encouraged to attend the weekly [facility] group therapy Behavioral Health Behavioral Health On track(2022 9:44 AM COMPUTATIONAL PHYSICIST) No Mavis Slaughter, CORY Note: Goal: Gayathri will be able to report improved ability to cope with family/relationship stressors, to an acceptable level, within the next six months Goal Reviewed today with: patient Readiness to change: Ready to change Department associated with goal: [facility] Steps to achieve goal: [...] documented as of this encounter Visit Diagnoses Diagnosis Diarrhea, unspecified type- Primary documented in this encounter Additional Health Concerns Infection Onset Date Last Indicated Resolved Time C. difficile Rule-Out 06/27/2025 06/28/20252024 11:48 AM CDT Assessment Noted Time PHQ-9 Depression Total Score: 0 09/04/20 23 2:08 PM COMPUTATIONAL PHYSICIST documented as of this encounter Care Teams Mophead Trimmer And Wrapper Relationship Specialty Start Date End Date Herbert Jaime, PAC [address] [place] [address] PCP - General Physician Bottle Machine Operator 05/08/22 Yang Vinson MD [address] [place] [address] Obstetrics & Gynecology 11/05/16 documented as of this encounter
--- OUTSIDE RECORDS SUMMARY | 2025-08-17 09:05 | XMS_ITS | Encounter Summary ---
Author Organization [facility] Address [address] [place] [address] Phone Care Team Providers Care Health Center Assistant Name Role Phone Yang Vinson MD Unavailable [phone] Cesar Tang MD Unavailable [phone] eHrbert Jaime [facility] Primary Care Provider [phone] Encounter Details Date Type Department Care Team (Late st Contact Info) Description 06/19/2022 Behavioral Health Patient Survey [facility]al Health Services [address] [place] [address] Mychart, Generic Provider [address] [place] [address] Social History Tobacco Use Types Packs/Day Years [...] suspected to have Coronavirus/COVID-19? No / Unsure 06/19/2022 1:24 PM CDT documented as of this encounter Plan of Treatment Upcoming Encounters Date Type Department Care Team (Late st Contact Info) Description 08/19/2025 3:00 PM HYDROGRAPHICAL TECHNICAL OFFICER Office Visit [facility] - Family Medicine - [place] [address] [place] [address] Karla Gamez, DO [address] [place] [address] documented as of this encounter Goals Goal Patient Goal Type Associated Problems Recent Progress Patient-Stated? Author Behavioral Health Behavioral Health On track(2022 9:44 AM HYDROGRAPHICAL TECHNICAL OFFICER) Yes Mavis Slaughter, CORY Note: I want [...] Health Behavioral Health On track(2022 9:44 AM HYDROGRAPHICAL TECHNICAL OFFICER) No Mavis Slaughter, CORY Note: Goal: Gayathri [...] documented as of this encounter Care Teams Health Center Assistant Relationship Specialty Start Date End Date Herbert Jaime, [address] [place] [address] PCP - General Physician Bean Sprout Grower 05/08/22 Yang Vinson MD [address] [address] Obstetrics & Gynecology 11/05/16 Cesar Tang MD [address] [address] Consulting Physician Neurology 12/06/16 08/01/24 documented as of this encounter
--- OUTSIDE RECORDS SUMMARY | 2025-08-17 09:05 | XMS_ITS | Encounter Summary ---
Author Organization [facility] Address [address] [place] [address] Phone Care Team Providers Care Process Planner Name Role Phone Yang Vinson MD Unavailable [phone] Cesar Tang MD Unavailable [phone] Herbert Jaime [facility] Primary Care Provider [phone] Encounter Details Date Type Department Care Team (Late st Contact Info) Description 04/25/2023 Behavioral Health Patient Survey [facility] Behavioral Health Services [address] [place] [address] Mavis Slaughter, [facility] [address] [place] [address] Social History Tobacco Use Types Packs/Day Years [...] suspected to have Coronavirus/COVID-19? No / Unsure 04/25/2023 9:15 AM CDT documented as of this encounter Plan of Treatment Upcoming Encounters Date Type Department Care Team (Late st Contact Info) Description 08/19/2025 3:00 PM INSERTER OPERATOR Office Visit [facility] - Family [facility] [place] [facility] [address] [place] [address] Karla Gamez, DO [address] [place] [address] documented as of this encounter Goals Goal Patient Goal Type Associated Problems Recent Progress Patient-Stated? Author Behavioral Health Behavioral Health On track(2022 9:44 AM INSERTER OPERATOR) Yes Mavis Slaughter LCSW Note: I want [...] Department associated with goal: [facility] Steps to achieve goal: Patient to be counseled on stress management, during her 45 min individual therapy sessions, 1-2 times per month. Patient to be counseled on healthy assertive communication skills, during her 45 min therapy sessions, 1-2 times per month Patient encouraged to attend the weekly [facility] group therapy Behavioral Health Behavioral Health On track(2022 9:44 AM INSERTER OPERATOR) No Mavis Slaughter, CORY Note: Goal: Gayathri will be able to report improved ability to cope with family/relationship stressors, to an acceptable level, within the next six months Goal Reviewed today with: patient Readiness to change: Ready to change Department associated with goal: [facility] Steps to achieve goal: [...] documented as of this encounter Care Teams Process Planner Relationship Specialty Start Date End Date Herbert Jaime, PAC [address] [place] [address] PCP - General Physician Meat Carver 05/08/22 Yang Vinson MD [address] [place] [address] Obstetrics & Gynecology 11/05/16 Cesar Tang MD [address] [place] [address] Consulting Physician Neurology 12/06/16 08/01/24 documented as of this encounter
--- NOTE | 2025-08-17 09:15 | ED.SKABFB ---
HPI - Skin/Abscess/Foreign Bdy General Chief complaint: Skin/Abscess/Foreign Body Stated complaint: concern for old IV site Time Seen by Provider: 08/17/25 08:59 History of Present Illness HPI narrative: 40-year-old female presents the ER complaining of tenderness to the left wrist. Patient states she had an IV placed in her left wrist 2 months ago, and has been experiencing pain and swelling to the site. Denies fevers. Denies discharge. Denies redness. Related Data Allergies Allergy/AdvReac Type Severity Reaction Status Date / Time sulfamethizole Allergy Severe Difficulty Verified 08/17/25 08:40 Breathing sulfamethoxazole Allergy Unknown Difficulty Verified 08/17/25 08:40 Breathing trimethoprim Allergy Unknown Difficulty Verified 08/17/25 08:40 Breathing MONISTAT Allergy Mild SWELLING Uncoded 01/02/22 12:31 Review of Systems Review of Systems: All systems reviewed & are unremarkable except as noted in HPI and below PMFSH Past Medical History Medical History Anxiety PONV (postoperative nausea and vomiting) Fibroid Endometriosis No significant past medical history Family History Family History Grandparent Family history of osteoporosis Depression Hypertension Family history of arthritis Malignant neoplasm of prostate Family history of malignant neoplasm of ovary Diabetes mellitus Mother Depression Father Hypertension Social History Social History Years smoked: 6 Smoking status: Former smoker Alcohol intake: current Alcohol use details: 2/MONTH Substance use: never Substance use type: does not use Living arrangements: with family Spiritual care concerns: No Exam Const: General: healthy appearing, no acute distress and alert Resp: Effort & Inspection: normal respiratory effort Auscultation: clear to auscultation bilaterally Cardio: Rate: regular rate Rhythm: regular rhythm Skin: General skin exam: normal color Other: Inflammation along vein of left wrist Course Vital Signs Vital signs: Vital Signs Temperature 36.9 C 08/17/25 08:48 Pulse Rate 103 H 08/17/25 08:48 Respiratory Rate 20 08/17/25 08:48 Blood Pressure 130/98 H 08/17/25 08:48 Pulse Oximetry 100 08/17/25 08:48 Oxygen Delivery Room Air 08/17/25 08:48 Temperature 36.9 C 08/17/25 08:48 Pulse Rate 103 H 08/17/25 08:48 Respiratory Rate 20 08/17/25 08:48 Blood Pressure 130/98 H 08/17/25 08:48 Pulse Oximetry 100 08/17/25 08:48 Oxygen Delivery Room Air 08/17/25 08:48 MDM MDM Narrative Medical decision making narrative: In summary: 40-year-old female presents to the ER complaining of pain and tenderness to her left wrist over a vein which was recently used for right knee access. Differential diagnosis includes DVT, cellulitis, superficial thrombophlebitis. Ultrasound of the arm shows evidence of thrombophlebitis. Plan is to discharge patient home with anti-inflammatories. Differential Diagnosis Differential Diagnosis: DVT, cellulitis, superficial thrombophlebitis. Imaging Data Radiologist's impression: ITS Impressions Venous Doppler Study 08/17/25 10:46 IMPRESSION: 1. No evidence of deep venous thrombosis. 2: Superficial venous thrombosis left cephalic pain. Discharge Plan Discharge Clinical Impression: Thrombophlebitis Patient Disposition: Home Condition: Stable Instructions: Antibiotic Form, Superficial Thrombophlebitis (ED), IV Infiltration (ED) Patient Language: Indonesian Prescriptions: New naproxen 500 mg tablet 500 mg PO BID Qty: 20 0RF No Action hydrocodone-acetaminophen 5-325 mg tablet 1 tablet PO Q4H PRN (Reason: pain) Qty: 30 0RF Follow-up/Referrals: Addison,Herbert Pickens [Primary Care Provider, Unknown] Time of Disposition: 10:53
--- OUTSIDE RECORDS SUMMARY | 2025-08-17 10:03 | XMS_ITS | Encounter Summary ---
Author Organization [employer] Care Team Providers Care Material Reclaimer Name Role Phone Yang Vinson MD [facility] [phone] Herbert Jaime Primary Care Provider [phone] Encounter Details Date Type Department Care Team (Latest Contact Info) Description 08/17/2025 Travel Social History Tobacco Use Types Packs/Day [...] st Contact Info) Description 08/19/2025 3:00 PM MORTGAGE LOAN COORDINATOR Office Visit [facility] - Family Medicine [facility] [address] [place] [id number] Karla Gamez, DO [address] [facility] [address] [facility]. [address] [place] [address] documented as of this encounter Goals Goal Patient Goal Type Associated Problems Recent Progress Patient-Stated? Author Behavioral Health Behavioral Health On track(2022 9:44 AM MORTGAGE LOAN COORDINATOR) Yes Mavis Slaughter LCSW Note: I want to get back with being able to communicate with my significant other and help him to not feel unloved or unappreciated. I also want to be able to deal better with stress/anxiety with grandmother situation, within the next six months. Goal Reviewed today with: patient Readiness to change: Ready to change Department associated with goal: [facility] Steps to achieve goal: Patient to be counseled on stress management, during her 45 min individual therapy sessions, 1-2 times per month. Patient to be counseled on healthy assertive communication skills, during her 45 min therapy sessions, 1-2 times per month Patient encouraged to attend the weekly [facility] group therapy [facility]al [facility] Behavioral Health On track(2022 9:44 AM MORTGAGE LOAN COORDINATOR) No Mavis Slaughter LCSW Note: Goal: Gayathri will be able to report improved ability to cope with family/relationship stressors, to an acceptable level, within the next six months Goal Reviewed today with: patient Readiness to change: Ready to change Department associated with goal: [facility] Steps to achieve goal: [...] filedocumented in this encounter Additional Health Concerns Assessment Noted Time PHQ-9 Depression Total Score: 0 09/04/20 23 2:08 PM MORTGAGE LOAN COORDINATOR documented as of this encounter Care Teams Material Reclaimer Relationship Specialty Start Date End Date Herbert Jaime PAC [address] [place] [address] PCP - General Physician Tree Scout 05/08/22 Yang Vinson MD [address] [place] [address] Obstetrics & Gynecology 11/05/16 documented as of this encounter
--- OUTSIDE RECORDS SUMMARY | 2025-08-17 10:03 | XMS_ITS | Encounter Summary ---
Author Organization [facility] Address [address] [place] [address] Phone Care Team Providers Care Cable Spooler Name Role Phone Yang Vinson MD Unavailable [phone] Herbert Jaime Primary Care Provider [phone] Encounter Details Date Type Department Care Team (Late Contact Info) Description 06/24/2025 Telephone [facility] [address] [place] [id number] Herbert Jaime, [address] [place] [address] Social History Tobacco Use Types [...] (Late Contact Info) Description 08/19/2025 3:00 PM PRINTED CIRCUIT BOARD PCB DESIGNER [facility] - Family Medicine - [place] [address] [place] [address] Karla Gamez, DO [address] [place] [address] documented as of this encounter Goals Goal Patient Goal Type Associated Problems Recent Progress Patient-Stated? Author Behavioral Health Behavioral Health On track(2022 9:44 AM PRINTED CIRCUIT BOARD PCB DESIGNER) Yes Mavis Slaughter, CORY Note: I want to get back with being able to communicate with my significant other and help him to not feel unloved or unappreciated. I also want to be able to deal better with stress/anxiety with grandmother situation, within the next six months. Goal Reviewed today with: patient Readiness to change: Ready to change Department associated with goal: [facility] Steps to achieve goal: Patient to be counseled on stress management, during her 45 min individual therapy sessions, 1-2 times per month. Patient to be counseled on healthy assertive communication skills, during her 45 min therapy sessions, 1-2 times per month Patient encouraged to attend the weekly [facility] group therapy Behavioral Health Behavioral Health On track(2022 9:44 AM PRINTED CIRCUIT BOARD PCB DESIGNER) No Mavis Slaughter, CORY Note: Goal: Gayathri will be able to report improved ability to cope with family/relationship stressors, to an acceptable level, within the next six months Goal Reviewed today with: patient Readiness to change: Ready to change Department associated with goal: [facility] Steps to [...] Total Score: 0 09/04/20 23 2:08 PM PRINTED CIRCUIT BOARD PCB DESIGNER documented as of this encounter Care Teams Cable Spooler Relationship Specialty Start Date End Date Herbert Jaime, PAC [address] [place] [address] PCP - General Physician Equal Employment Opportunity Officer 05/08/22 Yang Vinson MD [address] [place] [address] Obstetrics & Gynecology 11/05/16 documented as of this encounter
--- OUTSIDE RECORDS SUMMARY | 2025-08-17 10:03 | XMS_ITS | Encounter Summary ---
Author Organization [facility] Address [address] [place] [address] Phone Care Team Providers Care Washcloth Folder Name Role Phone Yang Vinson MD Unavailable [phone] Cesar Tang MD Unavailable [phone] Herbert Jaime [facility] Primary Care Provider [phone] Encounter Details Date Type Department Care Team (Late st Contact Info) Description 06/13/2023 Behavioral Health Patient Survey [facility] Behavioral Health Services [address] [place] [address] Mavis Slaughter, [facility] [address] [place] [address] Social History Tobacco Use Types Packs/Day Years [...] st Contact Info) Description 08/19/2025 3:00 PM CLIENT REPORTING ASSOCIATE Office Visit [facility] - Family [facility] [address] [place] [address] Karla Gamez, DO [address] [place] [address] documented as of this encounter Goals Goal Patient Goal Type Associated Problems Recent Progress Patient-Stated? Author Behavioral Health Behavioral Health On track(2022 9:44 AM CLIENT REPORTING ASSOCIATE) Yes Mavis Slaughter, CORY Note: I want to get back with being able to communicate with my significant other and help him to not feel unloved or unappreciated. I also want to be able to deal better with stress/anxiety with grandmother situation, within the next six months. Goal Reviewed today with: patient Readiness to change: Ready to change Department associated with goal: [facility] Steps to achieve goal: Patient to be counseled on stress management, during her 45 min individual therapy sessions, 1-2 times per month. Patient to be counseled on healthy assertive communication skills, during her 45 min therapy sessions, 1-2 times per month Patient encouraged to attend the weekly [facility] group therapy Behavioral Health Behavioral Health On track(2022 9:44 AM CLIENT REPORTING ASSOCIATE) No Mavis Slaughter, CORY Note: Goal: Gayathri will be able to report improved ability to cope with family/relationship stressors, to an acceptable level, within the next six months Goal Reviewed today with: patient Readiness to change: Ready to change Department associated with goal: [facility] Steps to achieve [...] documented as of this encounter Care Teams Washcloth Folder Relationship Specialty Start Date End Date Herbert Jaime, PAC [address] [place] [address] PCP - General Physician Locksmith 05/08/22 Yang Vinson MD [address] [place] [address] Obstetrics & Gynecology 11/05/16 Cesar Tang MD [address] [place] [address] Consulting Physician Neurology 12/06/16 08/01/24 documented as of this encounter
--- OUTSIDE RECORDS SUMMARY | 2025-08-17 10:03 | XMS_ITS | Encounter Summary ---
Author Organization [facility] Address [address] [place] [address] Phone Care Team Providers Care Graduate Internship Name Role Phone Yang Vinson MD Unavailable [phone] Herbert Jaime Primary Care Provider [phone] Encounter Details Date Type Department Care Team (Latest Contact Info) Description 06/27/2025 [facility] [address] [place] [address] Provider, Unknown UNKNOWN Diarrhea, unspecified [...] st Contact Info) Description 08/19/2025 3:00 PM BACTERIOLOGY TEACHER [facility] Visit [facility] [address] [place] [address] Karla Gamez, DO [address] [facility] [address] [place] [address] documented as of this encounter Goals Goal Patient Goal Type Associated Problems Recent Progress Patient-Stated? Author Behavioral Health Behavioral Health On track(2022 9:44 AM BACTERIOLOGY TEACHER) Yes Mavis Slaughter, CORY Note: I want to get back with being able to communicate with my significant other and help him to not feel unloved or unappreciated. I also want to be able to deal better with stress/anxiety with grandmother situation, within the next six months. Goal Reviewed today with: patient Readiness to change: Ready to change Department associated with goal: [facility] Steps to achieve goal: Patient to be counseled on stress management, during her 45 min individual therapy sessions, 1-2 times per month. Patient to be counseled on healthy assertive communication skills, during her 45 min therapy sessions, 1-2 times per month Patient encouraged to attend the weekly [facility] group therapy Behavioral Health Behavioral Health On track(2022 9:44 AM BACTERIOLOGY TEACHER) No Mavis Slaughter, CORY Note: Goal: Gayathri will be able to report improved ability to cope with family/relationship stressors, to an acceptable level, within the next six months Goal Reviewed today with: patient Readiness to change: Ready to change Department associated with goal: [facility] Steps to achieve [...] Total Score: 0 09/04/20 23 2:08 PM BACTERIOLOGY TEACHER documented as of this encounter Care Teams Graduate Internship Relationship Specialty Start Date End Date Herbert Jaime, PAC [address] [place] [address] PCP - General Physician Ssn/Ssbn Weapons Equipment Operator 05/08/22 Yang Vinson MD [address] [place] [address] Obstetrics & Gynecology 11/05/16 documented as of this encounter
--- OUTSIDE RECORDS SUMMARY | 2025-08-17 10:03 | XMS_ITS | Encounter Summary ---
Author Organization [facility] Address [address] [place] [address] Phone Care Team Providers Care Meat Press Operator Name Role Phone Yang Vinson MD Unavailable [phone] Cesar Tang MD Unavailable [phone] Herbert Jaime PAC Primary Care Provider + [phone] Encounter Details Date Type Department Care Team (Latest Contact Info) Description 07/21/2023 Transcribe Orders [facility] Laboratory Services [address] [place] [address] Yahaira Mckinnon, COKE DRAWER, BAKESHOP CLEANER [address] [place], [place] [id number] History of morbid obesity (Primary Dx); Intestinal [...] Coronavirus/COVID-19? No / Unsure 07/21/2023 6:07 AM PUBLIC AID ELIGIBILITY ASSISTANT documented as of this encounter Plan of Treatment Upcoming Encounters Date Type Department Care Team (Late st Contact Info) Description 08/19/2025 3:00 PM PUBLIC AID ELIGIBILITY ASSISTANT Office Visit [facility] - Family Medicine - [address] [place] [address] Karla Gamez, DO [address], [address] [place] [address] documented as of this encounter Goals Goal Patient Goal Type Associated Problems Recent Progress Patient-Stated? Author Behavioral Health Behavioral Health On track(2022 9:44 AM PUBLIC AID ELIGIBILITY ASSISTANT) Yes Mavis Slaughter, CORY Note: I want to get back with being able to communicate with my significant other and help him to not feel unloved or unappreciated. I also want to be able to deal better with stress/anxiety with grandmother situation, within the next six months. Goal Reviewed today with: patient Readiness to change: Ready to change Department associated with goal: [facility] Steps to achieve goal: Patient to be counseled on stress management, during her 45 min individual therapy sessions, 1-2 times per month. Patient to be counseled on healthy assertive communication skills, during her 45 min therapy sessions, 1-2 times per month Patient encouraged to attend the weekly [facility] group therapy Behavioral Health Behavioral Health On track(2022 9:44 AM PUBLIC AID ELIGIBILITY ASSISTANT) No Mavis Slaughter LCSW Note: Goal: Gayathri will be able to report improved ability to cope with family/relationship stressors, to an acceptable level, within the next six months Goal Reviewed today with: patient Readiness to change: Ready to change Department associated with goal: [facility] Steps to [...] 25 HYDROXY TOTAL Today 07/21/2023 6:22 AM PUBLIC AID ELIGIBILITY ASSISTANT History of morbid obesity 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 TIBC,%SAT Today 07/21/2023 6:22 AM PUBLIC AID ELIGIBILITY ASSISTANT History of morbid obesity 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 CBC WITH AUTO DIFFERENTIAL Today 07/21/2023 6:22 AM PUBLIC AID ELIGIBILITY ASSISTANT History of morbid obesity 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 THIAMIN (VITAMIN B1), WHOLE BLOOD, TREJO TDP Today 07/21/2023 6:22 AM PUBLIC AID ELIGIBILITY ASSISTANT History of morbid obesity 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 VITAMIN B12 Today 07/21/2023 6:22 AM PUBLIC AID ELIGIBILITY ASSISTANT History of morbid obesity 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 PHOSPHORUS (PO4) Today 07/21/2023 6:22 AM PUBLIC AID ELIGIBILITY ASSISTANT History of morbid obesity 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 PARATHYROID HORMONE PTH INTACT Today 07/21/2023 6:22 AM PUBLIC AID ELIGIBILITY ASSISTANT History of morbid obesity 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 MAGNESIUM (MG) Today 07/21/2023 6:22 AM PUBLIC AID ELIGIBILITY ASSISTANT History of morbid obesity 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 LIPID PANEL Today 07/21/2023 6:22 AM PUBLIC AID ELIGIBILITY ASSISTANT History of morbid obesity 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 FOLIC ACID (FOLATE) Today 07/21/2023 6 :22 AM PUBLIC AID ELIGIBILITY ASSISTANT History of morbid obesity 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 FERRITIN Today 07/21/2023 6:22 AM PUBLIC AID ELIGIBILITY ASSISTANT History of morbid obesity 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 CMP (COMPREHENSIVE METABOLIC PANEL) Today 07/21/2023 6:22 AM PUBLIC AID ELIGIBILITY ASSISTANT History of morbid obesity 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 COMPLETE BLOOD COUNT (CBC) WITH DIFF Today 07/21/2023 6:22 AM PUBLIC AID ELIGIBILITY ASSISTANT History of morbid obesity 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 documented in this encounter Results * (ABNORMAL) CBC WITH AUTO DIFFERENTIAL (07/21/2023 6:22 AM PUBLIC AID ELIGIBILITY ASSISTANT) WBC 4.12 4.00 - 12.00 10(3)/mcL 07/21/2023 7:32 AM PUBLIC AID ELIGIBILITY ASSISTANT [facility] RBC 4.30 3.80 - 5.30 10(6)/mcL 07/21/2023 7:32 AM PUBLIC AID ELIGIBILITY ASSISTANT [facility] HEMOGLOBIN (HGB) 13.6 12.0 - 15.8 g/dL 07/21/2023 7:32 AM [facility] HEMATOCRIT (HCT) 41.6 36.0 - 47.0 % 07/21/2023 7:32 AM [facility] MCV 96.7(H) 82.0 - 96.0 fL 07/21/2023 7:32 AM PUBLIC AID ELIGIBILITY ASSISTANT [facility] MCH 31.6 26.0 - 34.0 pg 07/21/2023 7:32 AM PUBLIC AID ELIGIBILITY ASSISTANT [facility] MCHC 32.7 31.0 - 36.0 g/dL 07/21/2023 7:32 AM [facility] PLATELET COUNT 230 140 - 440 10(3)/mcL 07/21/2023 7:32 AM PUBLIC AID ELIGIBILITY ASSISTANT [facility] RDW 12.1 11.8 - 15.5 % 07/21/2023 7:32 AM [facility] MPV 9.6(L) 9.7 - 12.4 fL 07/21/2023 7:32 AM PUBLIC AID ELIGIBILITY ASSISTANT [facility] NEUTROPHILS 40.1(L) 47.0 - 73.0 % 07/21/2023 7:32 AM PUBLIC AID ELIGIBILITY ASSISTANT [facility] LYMPHOCYTES 50.2(H) 18.0 - 42.0 % 07/21/2023 7:32 AM [facility] MONOCYTES 7.0 4.0 - 12.0 % 07/21/2023 7:32 AM PUBLIC AID ELIGIBILITY ASSISTANT [facility] EOSINOPHILS 2.2 0.0 - 5.0 % 07/21/2023 7:32 AM PUBLIC AID ELIGIBILITY ASSISTANT [facility] BASOPHILS 0.5 0.0 - 1.0 % 07/21/2023 7:[address] [facility] ABSOLUTE NEUTROPHILS 1.65 1.60 - 7.70 10(3)/[facility] 07/21/2023 7:[address] [facility] ABSOLUTE LYMPHOCYTES 2.07 1.30 - 3.20 10(3)/[facility] 07/21/2023 7:32 AM PUBLIC AID ELIGIBILITY ASSISTANT [facility] ABSOLUTE MONOCYTES 0.29 0.20 - 1.00 10(3)/[facility] 07/21/2023 7:32 AM PUBLIC AID ELIGIBILITY ASSISTANT [facility] ABSOLUTE EOSINOPHIL 0.09 0.00 - 0.40 10(3)/[facility] 07/21/2023 7:[address] [facility] ABSOLUTE BASOPHILS 0.02 0.00 - 0.10 10(3)/[facility] 07/21/2023 7:[address] [facility] NRBC PER 100 WBC 0 07/21/20 7:[address] [facility] Blood Venipuncture / Unknown 07/21/2023 6:22 AM PUBLIC AID ELIGIBILITY ASSISTANT 07/21/2023 7:26 AM PUBLIC AID ELIGIBILITY ASSISTANT us Yahaira Mckinnon COKE DRAWER, BAKESHOP CLEANER HEMATOLOGY ORDERABLES Fin al Result [facility] [address] [place] [address] * (ABNORMAL) IRON,TRANSFERN,CALC.TIBC,%SAT (07/21/2023 6:22 AM PUBLIC AID ELIGIBILITY ASSISTANT) IRON 94 25 - 156 mcg/dL 07/21/2023 10:29 AM PUBLIC AID ELIGIBILITY ASSISTANT [facility] TRANSFERRIN 186 180 - 382 mg/dL 07/21/2023 10:29 AM PUBLIC AID ELIGIBILITY ASSISTANT [facility] TIBC, CALCULATED 233(L) 265 - 497 mcg/dL 07/21/2023 10:29 AM PUBLIC AID ELIGIBILITY ASSISTANT [facility] % SATURATION * 40 15 - 62 % 07/21/2023 10:29 AM PUBLIC AID ELIGIBILITY ASSISTANT [facility] Blood Venipuncture / Unknown 07/21/2023 6:22 AM PUBLIC AID ELIGIBILITY ASSISTANT 07/21/2023 7:26 AM PUBLIC AID ELIGIBILITY ASSISTANT Narrative [facility] - 07/21/2023 10:29 AM PUBLIC AID ELIGIBILITY ASSISTANT * % Transferrin Saturation us Yahaira Mckinnon APRN, BAKESHOP CLEANER CHEMISTRY ORDERABLES Adrianne l Result [facility] [address] [place] [address] * PHOSPHORUS (PO4) (07/21/2023 6:22 AM PUBLIC AID ELIGIBILITY ASSISTANT) [facility] PHOSPHORUS 2.8 2.5 - 4.5 mg/dL 07/21/2023 8:19 AM PUBLIC AID ELIGIBILITY ASSISTANT [facility] Blood Venipuncture / Unknown 07/21/2023 6:22 AM PUBLIC AID ELIGIBILITY ASSISTANT 07/21/2023 7:26 AM PUBLIC AID ELIGIBILITY ASSISTANT us Yahaira Mckinnon APRN, BAKESHOP CLEANER CHEMISTRY ORDERABLES Adrianne l Result [facility] [address] [place] [address] * PARATHYROID HORMONE PTH INTACT (07/21/2023 6:22 AM PUBLIC AID ELIGIBILITY ASSISTANT) Pathologist [facility] PTH INTACT 51 13 - 85 pg/mL 07/21/2023 10:34 AM PUBLIC AID ELIGIBILITY ASSISTANT [facility] Blood Venipuncture / Unknown 07/21/2023 6:22 AM PUBLIC AID ELIGIBILITY ASSISTANT 07/21/2023 7:25 AM PUBLIC AID ELIGIBILITY ASSISTANT Yahaira Mckinnon APRN, CNP CHEMISTRY ORDERABLES Adrianne l Result Performing Organization Address City/[facility] [address]/ZIP Co de Phone Number [facility] [address] [place] [address] * THIAMIN (VITAMIN B1), WHOLE BLOOD, [facility] (07/21/2023 6:22 AM PUBLIC AID ELIGIBILITY ASSISTANT) Pathologist [facility] THIAMIN (VITAMIN B1) 170 70 - 180 nmol/L 07/24/2023 9:38 AM PUBLIC AID ELIGIBILITY ASSISTANT [facility] Comment: ADDITIONAL INFORMATION This test was developed and its performance characteristics determined by [facility] in a manner consistent with CLIA requirements. This test has not been cleared or approved by the U.S. Food and Drug Administration. Test Performed by: [facility] [place] [address] Volunteer Specialist: Gomez Gibson M.D. Ph.D.; CLIA# [id number] Blood Venipuncture / Unknown 07/21/2023 6:22 AM PUBLIC AID ELIGIBILITY ASSISTANT 07/21/2023 7:25 AM PUBLIC AID ELIGIBILITY ASSISTANT us Yahaira Mckinnon APRN, CNP LAB SEND OUTS Final Res ult [facility] * FOLIC ACID (FOLATE) (07/21/2023 6:22 AM PUBLIC AID ELIGIBILITY ASSISTANT) FOLATE 11.1 7.0 - 31.4 ng/mL 07/21/2023 8:46 AM PUBLIC AID ELIGIBILITY ASSISTANT [facility] IS THE PATIENT REQUIRED TO BE FASTING? No 07/21/2023 8:46 AM PUBLIC AID ELIGIBILITY ASSISTANT [facility] Blood Venipuncture / Unknown 07/21/2023 6:22 AM PUBLIC AID ELIGIBILITY ASSISTANT 07/21/2023 7:27 AM PUBLIC AID ELIGIBILITY ASSISTANT Yahaira Mckinnon APRN, BAKESHOP CLEANER CHEMISTRY ORDERABLES Adrianne l Result Performing Organization Address City/[facility] [address]/ZIP Co de Phone Number [facility] [address] [place] [address] * VITAMIN B12 (07/21/2023 6:22 AM PUBLIC AID ELIGIBILITY ASSISTANT) VITAMIN B12 503 213 - 816 pg/mL 07/21/2023 8:39 AM PUBLIC AID ELIGIBILITY ASSISTANT [facility] Blood Venipuncture / Unknown 07/21/2023 6:22 AM PUBLIC AID ELIGIBILITY ASSISTANT 07/21/2023 7:27 AM PUBLIC AID ELIGIBILITY ASSISTANT Yahaira Mckinnon APRN, BAKESHOP CLEANER CHEMISTRY ORDERABLES Adrianne l Result Performing Organization Address [facility] [address]/[facility] Co de Phone Number [facility] [address] [place] [address] * VITAMIN D, 25 HYDROXY TOTAL (07/21/2023 6:22 AM PUBLIC AID ELIGIBILITY ASSISTANT) VITAMIN D, 25 HYDROX 66 ng/mL 07/21/2023 8:46 AM PUBLIC AID ELIGIBILITY ASSISTANT [facility] Blood Venipuncture / Unknown 07/21/2023 6:22 AM PUBLIC AID ELIGIBILITY ASSISTANT 07/21/2023 7:27 AM PUBLIC AID ELIGIBILITY ASSISTANT Narrative [facility] - 07/21/2023 8:46 AM PUBLIC AID ELIGIBILITY ASSISTANT Published reference ranges for Vitamin D vary depending on time and place and method of testing, and on patient's age, sex, ethnicity and levels of other measured analytes such as parathormone, calcium and phosphorus. The result should be evaluated in conjunction with clinical findings and suspicions. [employer] and [employer] Clinical Practice Guidelines: Status Vitamin D levels (ng/mL) Deficient <=20 At risk of inadequacy 21-29 Sufficient 30-100 Centers of Disease Control and Prevention Guidelines: Status Vitamin D levels (ng/mL) Deficient <13 At risk of inadequacy 13-19 Sufficient 20-50 Possibly harmful >50 References: [employer], 2010 Dietary reference intakes for calcium and vitamin D. [place]: The National Academies Press. Bruce Burdick, Philip N, [place] SALOMON, et al., Evaluation, treatment, and prevention of Vitamin D deficiency: an Endocrinology Clinical Practice Guideline. JCEM 2011 96: 7 4782-9273. Hermelindo A, Chapo C, Juan Ramon Bearden, et al., Vitamin D Status: [place], , [facility] data brief, no. 59, MD Aaron: [facility] Statistics. 2011. Yahaira Mckinnon APRN, CNP CHEMISTRY ORDERABLES Adrianne l Result Performing Organization Address City/[facility] [address]/ZIP Co de Phone Number [facility] [address] [place] [address] * MAGNESIUM (MG) (07/21/2023 6:22 AM PUBLIC AID ELIGIBILITY ASSISTANT) MAGNESIUM 1.9 1.6 - 2.6 mg/dL 07/21/2023 8:19 AM PUBLIC AID ELIGIBILITY ASSISTANT [facility] Blood Venipuncture / Unknown 07/21/2023 6:22 AM PUBLIC AID ELIGIBILITY ASSISTANT 07/21/2023 7:26 AM PUBLIC AID ELIGIBILITY ASSISTANT Yahaira Mckinnon APRN, CNP CHEMISTRY ORDERABLES Adrianne l Result Performing Organization Address City/[facility] [address]/ZIP Co de Phone Number [facility] [address] [place] [address] * LIPID PANEL (07/21/2023 6:22 AM PUBLIC AID ELIGIBILITY ASSISTANT) CHOLESTEROL 159 <200 mg/dL 07/21/2023 8:19 AM PUBLIC AID ELIGIBILITY ASSISTANT [facility] TRIGLYCERIDES 64 <150 mg/dL 07/21/2023 8:19 AM PUBLIC AID ELIGIBILITY ASSISTANT [facility] HDL CHOLESTEROL 43 >40 mg/dL 8:19 AM PUBLIC AID ELIGIBILITY ASSISTANT [facility] LDL 103 <130 mg/dL 07/21/2023 8:19 AM PUBLIC AID ELIGIBILITY ASSISTANT [facility] VLDL 13 10 - 50 mg/dL 07/21/2023 8:19 AM PUBLIC AID ELIGIBILITY ASSISTANT [facility] CHOL/HDL RATIO 3.7 0.0 - 4.4 07/21/2023 8:19 AM PUBLIC AID ELIGIBILITY ASSISTANT [facility] NON-HDL CHOLESTEROL 116 <130 mg/dL 07/21/2023 8:19 AM PUBLIC AID ELIGIBILITY ASSISTANT [facility] IS THE PATIENT REQUIRED TO BE FASTING? Yes 07/21/2023 8:19 AM PUBLIC AID ELIGIBILITY ASSISTANT [facility] HAS THE PATIENT BEEN FASTING? Yes 07/21/2023 8:19 AM PUBLIC AID ELIGIBILITY ASSISTANT [facility] Blood Venipuncture / Unknown 07/21/2023 6:22 AM PUBLIC AID ELIGIBILITY ASSISTANT 07/21/2023 7:26 AM PUBLIC AID ELIGIBILITY ASSISTANT Yahaira Mckinnon APRN, BAKESHOP CLEANER CHEMISTRY ORDERABLES Adrianne l Result Performing Organization Address City/[facility] [address]/ZIP Co de Phone Number [facility] [address] [place] [address] * FERRITIN (07/21/2023 6:22 AM PUBLIC AID ELIGIBILITY ASSISTANT) FERRITIN 120 5 - 204 ng/mL 07/21/2023 8:35 AM PUBLIC AID ELIGIBILITY ASSISTANT [facility] Blood Venipuncture / Unknown 07/21/2023 6:22 AM PUBLIC AID ELIGIBILITY ASSISTANT 07/21/2023 7:26 AM PUBLIC AID ELIGIBILITY ASSISTANT us Yahaira Mckinnon APRN, BAKESHOP CLEANER CHEMISTRY ORDERABLES Adrianne l Result [facility] [address] [place] [address] * (ABNORMAL) CMP (COMPREHENSIVE METABOLIC PANEL) (07/21/2023 6:22 AM PUBLIC AID ELIGIBILITY ASSISTANT) SODIUM 140 136 - 145 mmol/L 07/21/2023 8:19 AM PUBLIC AID ELIGIBILITY ASSISTANT [facility] POTASSIUM 3.9 3.5 - 5.1 mmol/L 07/21/2023 8:[address] [facility] CHLORIDE 107 98 - 107 mmol/L 07/21/2023 8:[address] [facility] CO2, VENOUS 26 22 - 30 mmol/L 07/21/2023 8:[address] [facility] ANION GAP 10.9 <18.0 mmol/L 07/21/2023 8:[address] [facility] GLUCOSE 85 70 - 99 mg/dL 07/21/2023 8:[address] [facility] BUN 14 5 - 18 mg/dL 07/21/2023 8:[address] [facility] CREATININE, BLOOD 0.69 0.60 - 1.00 mg/dL 07/21/2023 8:[address] [facility] BUN/CREATININE RATIO 20 12 - 20 ratio 07/21/2023 8:[address] [facility] TOTAL PROTEIN 6.9 6.3 - 8.2 g/dL 07/21/2023 8:[address] [facility] ALBUMIN 4.0 3.5 - 5.0 g/dL 07/21/2023 8:[address] [facility] A/G RATIO 1.4 1.0 - 2.2 07/21/2023 8:[address] [facility] CALCIUM 8.8 8.7 - 10.5 mg/dL 07/21/2023 8:[address] [facility] T BILI 0.7 0.2 - 1.2 mg/dL 07/21/2023 8:[address] [facility] SGOT (AST) 12 5 - 34 U/L 07/21/2023 8:[address] [facility] SGPT (ALT) 19 0 - 55 U/L 07/21/2023 8:[address] [facility] ALKALINE PHOSPHATASE 38(L) 40 - 150 U/L 07/21/2023 8:[address] [facility] IS THE PATIENT REQUIRED TO BE FASTING? No 07/21/2023 8:19 AM PUBLIC AID ELIGIBILITY ASSISTANT [facility] GFR, ESTIMATED >60 >=60 07/21/2023 8:19 AM PUBLIC AID ELIGIBILITY ASSISTANT [facility] Comment: Creatinine Clearance is the preferred criteria for selecting drug dose adjustments in renally impaired patients. The GFR is provided as additional pertinent clinical information. GFR is reported in mL/min/1.73 sq m. Calculation based on the Chronic Kidney Disease Epidemiology Collaboration (CKD- EPI) equation refit without adjustment for race. GFR, EST. >60 >=60 023 8:19 AM PUBLIC AID ELIGIBILITY ASSISTANT [facility] GFR, EST. NONAFRICAN >60 >=60 07/21/2023 8:19 AM PUBLIC AID ELIGIBILITY ASSISTANT [facility] Blood Venipuncture / Unknown 07/21/2023 6:22 AM PUBLIC AID ELIGIBILITY ASSISTANT 07/21/2023 7:26 AM PUBLIC AID ELIGIBILITY ASSISTANT Yahaira Mckinnon APRN, BAKESHOP CLEANER CHEMISTRY ORDERABLES Adrianne l Result [facility] [address] [place] [address] documented in this encounter Visit Diagnoses Diagnosis [...] documented as of this encounter Care Teams Meat Press Operator Relationship Specialty Start Date End Date Herbert Jaime [address] [place] [address] PCP - General Physician Outpatient Scheduler 05/08/22 Yang Vinson MD [address] [place] [address] Obstetrics & Gynecology 11/05/16 Cesar Tang MD [address] [facility] [address] [facility] [address] [place] [address] Consulting Physician Neurology 12/06/16 08/01/24 documented as of this encounter
--- OUTSIDE RECORDS SUMMARY | 2025-08-17 10:03 | XMS_ITS | Clinical Summary ---
Author Organization [facility] Address [address] [place] [address] Care Team Providers Care Health Safety Coordinator Name Role Phone Herbert Jaime Primary Care Provider [phone] Joanna Bond [facility] Unavailable Unavailable Source Comments [facility],non-owned Affiliates and Associated Physician Practices is amultiple site organization consisting of ambulatory clinics and hospital sitesin [place], [place], [place] and [place]. This disclosure is being madepursuant to the Care Everywhere program and may not contain all information available regarding this patient. Last updated 18.[facility] Allergies Active Allergy Reactions Criticality Noted Date [...] current medications with the patient. Probiotic Product (Venaxis) capsuleIndicat ions:Bariatric surgery status Take 1 (one) [...] mg in the evening Active nystatin (Mycostatin) [id number] UNIT/GM cream Apply to affected area 2 [...] Description 08/16/2025 Travel 07/26/2025 Office Visit External [facility] [address], [address] [place] [address] Conner Crisostomo DO 07/25/2025 Telephone [facility] [address], [address] [place] [address] [facility] Surgery Scheduling (EGD) 07/15/2025 10:40 AM CDT Video Visit [facility] [address] [place] [phone] Vivek Cowan, FINE ARTS INSTRUCTOR-CREDIT OR LOANS OFFICER Recurrent major depressive disorder, in partial remission ; Generalized anxiety disorder 07/11/2025 Travel 07/08/2025 Telephone [facility] [address] [place] [address], [address] [place] [address] Conner Crisostomo, DO Pain Abdominal 07/05/2025 Telephone [facility] [id number] [place] [address], [facility] [address] [place] [address] Conner Crisostomo, DO Medication Prior Auth Request 07/04/2025 9:20 AM CDT Office Visit [facility] [address], [address] [place] [address] Conner Crisostomo DO Gastric ulcer with perforation, unspecified chronicity (HCC) (Primary Dx) 07/04/2025 Travel 06/28/2025 Orders Only [facility] [address] [place] [address], [facility] [address] [place] [address] Lisbeth Noble RN Gastric ulcer with perforation, unspecified chronicity (HCC) 06/28/2025 Telephone [facility] [address] [place] [address], [address] [place] [address] Lisbeth Noble, RN Returned Call 06/28/2025 Orders Only [facility] [address] [place] [phone] Lucia Eason, FINE ARTS INSTRUCTOR-CREDIT OR LOANS OFFICER Perforated ulcer (HCC) 06/27/2025 Telephone [facility] [address], [address] [place] [address] Lisbeth Noble, RN Follow-up 06/27/2025 Telephone [facility] [address] [place] [phone] Sandra Edwards MD Surgical Follow-up 06/27/2025 Orders Only [facility] [address], [address] [place], [place] [address] Lisbeth Noble, RN 06/27/2025 Telephone [facility] [address], [address] [place], [place] [address] Lisbeth Noble, RN Returned Call 06/26/2025 Refill [facility] PHYSICIAN STD [address] [address] Oniel Culp III, MD MEDICATION REFILL 06/23/2025 2:39 PM CDT Anesthesia Event [facility] [address] [place] [address] Barney Amos MD Kerley, Lauren M, FINE ARTS INSTRUCTOR-CRUSHER AND BINDER OPERATOR 06/23/2025 2:30 PM CDT - 06/23/2025 3:53 PM CDT Surgery [facility] Op [address] [address] Conner Crisostomo, DO DIAGNOSTIC LAPAROSCOPY WITH REPAIR OF GASTROJEJUNAL PERFORATION WITH OMENTAL PATCH AND INTERNAL HERNIA REPAIR X2 06/23/2025 12:33 PM CDT - 06/26/2025 11:30 AM CDT Hospital Encounter [facility] 3 Intermediate Care Unit [address] [address] Maryjane Juares MD Tanguturi, Swetha, MD Pardo, Leopoldo Santos III, MD Hospitalist Discharge Disposition: Home or Self Care 06/23/2025 Travel 06/13/2025 9:20 AM CDT Video Visit [facility] Behavioral Health [address] [place] [phone] Vivek Cowan, FINE ARTS INSTRUCTOR-CREDIT OR LOANS OFFICER Mild episode of recurrent major depressive disorder [...] Recorded Patient Health Questionnaire-2 Score 0 07/15/2025 [facility] - Occupational Stress [...] place to sleep or slept in a snf (including now)? No 10/29/2022 Housing Stability Vital Sign Answer Steve e Recorded In the last 12 months, was t here a time when you were not able to pay the mortgage or rent on time? No 06/23/2025 In the past 12 months, how m any times have you moved where you were living? 0 06/23/2025 At any time in the past 12 m [facility], were you homeless or living in a snf (including now)? No 06/23/2025 Comments No Sex and Gender Information Value Date Recorded Sex Assigned at Female 08/25/2024 12:46 PM WASTE COTTON CLEANER Legal Sex Female 6:03 AM WASTE COTTON CLEANER Gender Identity Female 08/25/2024 12:46 PM WASTE COTTON CLEANER Sexual Orientation Not on file Last Filed [...] (Latest Contact Info) Description 08/22/2025 9:00 AM WASTE COTTON CLEANER Hospital Encounter [facility] - [facility] Surgery [address] [place] [address] Conner Crisostomo, DO [address] [place], [place] [address] Surgery General 08/22/2025 9:00 AM WASTE COTTON CLEANER Procedure visit [facility] [address], [address] [place], [place] [address] Conner Crisostomo, DO [address] [place], [place] [address] 08/22/2025 9:00 AM WASTE COTTON CLEANER - 08/22/2025 9:20 AM WASTE COTTON CLEANER Surgery [facility] - [facility] Surgery [address], [place] [address] Conner Crisostomo, DO [address] [place], [place] [address] ESOPHAGOGASTRODUODENOSCOPY (EGD) DIAGNOSTIC 10/10/2025 9:20 AM WASTE COTTON CLEANER Video Visit [facility] Behavioral Health [address] [place] [phone] Vivek Cowan, FINE ARTS INSTRUCTOR-[facility] [address] [place] [phone] 10/31/2025 11:00 AM WASTE COTTON CLEANER Office Visit [facility] [address], [address] [place] [address] Conner Crisostomo, DO [address] [place] [address] Scheduled Procedures Name Priority Associated Diagnoses Date/Ti me ESOPHAGOGASTRODUODENOSCOPY ( EGD) DIAGNOSTIC 08/22/2025 9:00 AM WASTE COTTON CLEANER Health Maintenance Due Date Last Done Comments [...] this topic Medical Devices Implanted Type Area Director Of Individual Giving Device Identifier Shelf Expiration Date Model / Serial / Lot Kit Tissue Clsr Duo Tssl 1 Prefl Syr - [id number] Implanted:Qty : 1 on 10/29/2022 by Sandra Edwards MD at [facility] N/A: [employer] 01/13/2024 [id number] / [id number] / [id number] Procedures Procedure Name Priority Date/Time Associated Diagnosis [...] 06/24/2025 5:30 AM CDT Perforated bowel (HCC) OR LAP,DIAGNOSTIC ABDOMEN 06/23/2025 2:29 PM CDT GLUCOSE [...] of2 resultswithin the time period is included. [facility] WBC 8.2 4.0 - 10.7 x10E9/L 06/26/2025 5:50 AM CDT [facility] RBC Count 3.95 3.90 - 5.20 x10E12/L 06/26/2025 5:50 AM CDT [facility] Hemoglobin 12.4 11.9 - 15.8 g/dL 06/26/2025 5:50 AM CDT [facility] Hematocrit 38.5 34.8 - 46.1 % 06/26/2025 5:50 AM CDT [facility] MCV 97.5 80.0 - 98.0 fL 06/26/2025 5:50 AM CDT [facility] MCH 31.4 26.7 - 33.6 pg 06/26/2025 5:50 AM CDT [facility] MCHC 32.2 31.7 - 36.3 g/dL 06/26/2025 5:50 AM CDT [facility] RDW-CV 12.1 11.3 - 14.8 % 06/26/2025 5:50 AM CDT [facility] Platelet Count 200 150 - 420 x10E9/L 06/26/2025 5:50 AM CDT [facility] MPV 9.9 7.8 - 11.4 fL 06/26/2025 5:50 AM CDT [facility] Blood BLOOD SPECIMEN / Unknown Lab Venipuncture / Unknown 06/26/2025 5:43 AM CDT 06/26/2025 5:46 AM CDT Oniel Culp III, MD LAB - HEMATOLOGY O RDERABLES Final Result [facility] [address] [id number] * (ABNORMAL) BASIC METABOLIC PANEL (CALCIUM TOTAL) (06/26/2025 5:43 AM CDT) Only the most recent of2 resultswithin the time period is included. [facility] Glucose 87 70 - 99 mg/dL 06/26/2025 6:06 AM [facility] Sodium 137 136 - 145 mmol/L 06/26/2025 6:06 AM [facility] Potassium 3.4(L) 3.5 - 5.1 mmol/L 06/26/2025 6:06 AM [facility] Chloride 106 98 - 107 mmol/L 06/26/2025 6:06 AM [facility] CO2 18(L) 22 - 29 mmol/L 06/26/2025 6:06 AM [facility] Calcium 8.7 8.4 - 10.4 mg/dL 06/26/2025 6:06 AM [facility] Anion Gap 13 6 - 16 mmol/L 06/26/2025 6:06 AM [facility] BUN 11 5.3 - 18.7 mg/dL 06/26/2025 6:06 AM [facility] Creatinine 0.51 0.50 - 1.10 mg/dL 06/26/2025 6:06 AM [facility] eGFR by CKD-EPI >90 >=90 mL/min/1.7 3 m2 06/26/2025 6:06 AM [facility] Comment:Estimated Glomerular Filtration Rate (eGFR) calculated using the CKD-EPI Creatinine Equation (2020), per the National Kidney Foundation and English Society of Nephrology recommendations. Blood BLOOD SPECIMEN / Unknown Lab Venipuncture / Unknown 06/26/2025 5:43 AM CDT 06/26/2025 5:47 AM CDT Oniel Culp III, MD LAB - CHEMISTRY OR DERABLES Final Result [facility] [address] [address] * (ABNORMAL) GLUCOSE - POINT OF CARE (06/24/2025 4:01 PM CDT) Only the most recent of2 resultswithin the time period is included. Pathologist [facility] Glucose WB/POC 109(H) 70 - 99 mg/dL 06/24/2025 9:04 PM CDT [facility] Specimen Type Arterial/C apillary 06/24/2025 9:04 PM CDT [facility] Blood BLOOD SPECIMEN / Unknown 06/24/2025 4:01 PM CDT 06/24/2025 9:04 PM CDT Oniel Culp III, MD LAB - POINT OF CAR E ORDERABLES Final Result Performing Organization Address City/[facility]/ZIP Co de Phone Number [facility] [address] [address] * FL FLUORO UGI SERIES (06/24/2025 9:59 [...] Reference air kerma (ka,r). Procedure Note Conner Enriquez DO - 06/24/2025 PROCEDURE: FL UGI SERIES [...] Serum Negative Negative 06/23/2025 1:39 PM CDT [facility] Blood BLOOD SPECIMEN / Unknown Venipuncture / Unknown 06/23/2025 1:17 PM CDT 06/23/2025 1:22 PM CDT Narrative [facility] - 06/23/2025 1:39 PM CDT Specimens containing human anti-mouse antibodies may exhibit false positive or false negative results. If qualitative interpretation is inconsistent with clinical evaluation, consider confirmation by an alternative hCG method. Maryjane Juares MD LAB - CHEMISTRY ORDERABLES Fi nal Result [facility] [address] [address] * TYPE + SCREEN PANEL (06/23/2025 1:15 PM CDT) Pathologist [facility] ABO Rh A POS 06/23/2025 1:59 PM CDT [facility] Comment:History checked. Antibody Screen NEG 1:59 PM CDT [facility] Blood Bank BLOOD SPECIMEN / Unknown Venipuncture / Unknown 06/23/2025 1:15 PM CDT 06/23/2025 1:22 PM CDT us Maryjane Juares MD LAB - BLOOD BANK ORDERABLES F inal Result [facility] [address] [place] [address], [facility] [phone] * (ABNORMAL) CBC W AUTO DIFFERENTIAL (06/23/2025 1:15 PM CDT) Pathologist [facility] WBC 13.3(H) 4.0 - 10.7 x10E9/L 06/23/2025 1:25 PM CDT [facility] RBC Count 4.27 3.90 - 5.20 x10E12/L 06/23/2025 1:25 PM CDT [facility] Hemoglobin 13.5 11.9 - 15.8 g/dL 06/23/2025 1:25 PM CDT [facility] Hematocrit 40.0 34.8 - 46.1 % 06/23/2025 1:25 PM CDT [facility] MCV 93.7 80.0 - 98.0 fL 06/23/2025 1:25 PM CDT [facility] MCH 31.6 26.7 - 33.6 pg 06/23/2025 1:25 PM CDT [facility] MCHC 33.8 31.7 - 36.3 g/dL 06/23/2025 1:25 PM CDT [facility] RDW-CV 11.9 11.3 - 14.8 % 06/23/2025 1:25 PM CDT [facility] Platelet Count 211 150 - 420 x10E9/L 06/23/2025 1:25 PM CDT [facility] MPV 9.9 7.8 - 11.4 fL 06/23/2025 1:25 PM CDT [facility] Neutrophil % 92.0(H) 41.0 - 74.0 % 06/23/2025 1:25 PM CDT [facility] Lymphocyte % 2.9(L) 17.0 - 47.0 % 06/23/2025 1:25 PM CDT [facility] Monocyte % 4.6 3.0 - 11.0 % 06/23/2025 1:25 PM CDT [facility] Eosinophil % 0.0 0.0 - 7.0 % 06/23/2025 1:25 PM CDT [facility] Basophil % 0.1 0.0 - 1.6 % 06/23/2025 1:25 PM CDT [facility] Immature Granulocytes % 0.4 0.0 - 1.0 % 06/23/2025 1:25 PM CDT [facility] Neutrophil Absolute 12.25(H) 1.60 - 7.50 x10E9/L 06/23/2025 1:25 PM CDT [facility] Lymphocyte Absolute 0.39(L) 1.00 - 4.40 x10E9/L 06/23/2025 1:25 PM CDT [facility] Monocyte Absolute 0.61 0.15 - 1.00 x10E9/L 06/23/2025 1:25 PM [facility] Eosinophil Absolute 0.00 0.00 - 0.60 x10E9/L 06/23/2025 1:25 PM CDT [facility] Basophil Absolute 0.01 0.00 - 0.13 x10E9/L 06/23/2025 1:25 PM [facility] Blood BLOOD SPECIMEN / Unknown Venipuncture / Unknown 06/23/2025 1:15 PM CDT 06/23/2025 1:22 PM CDT Maryjane Juares MD LAB - HEMATOLOGY ORDERABLES F inal Result [facility] [address] [place] [address] * (ABNORMAL) COMPREHENSIVE METABOLIC PANEL (06/23/2025 1:15 PM [facility]) Glucose 131(H) 70 - 99 mg/dL 06/23/2025 1:44 PM [facility] Sodium 140 136 - 145 mmol/L 06/23/2025 1:44 PM [facility] Potassium 4.2 3.5 - 5.1 mmol/L 06/23/2025 1:44 PM [facility] Chloride 107 98 - 107 mmol/L 06/23/2025 1:44 PM [facility] CO2 25 22 - 29 mmol/L 06/23/2025 1:44 PM [facility] Calcium 8.7 8.4 - 10.4 mg/dL 06/23/2025 1:44 PM [facility] Anion Gap 8 6 - 16 mmol/L 06/23/2025 1:44 PM [facility] BUN 13 5.3 - 18.7 mg/dL 06/23/2025 1:44 PM [facility] Creatinine 0.65 0.50 - 1.10 mg/dL 06/23/2025 1:44 PM [facility] Alkaline Phosphatase 42 40 - 150 U/L 06/23/2025 1:44 PM [facility] ALT 12 6 - 57 U/L 06/23/2025 1:44 PM [facility] AST 12 10 - 48 U/L 06/23/2025 1:44 PM [facility] Protein Total 6.6 6.4 - 8.3 gm/dL 06/23/2025 1:44 PM [facility] Albumin 3.6 3.1 - 4.5 gm/dL 06/23/2025 1:44 PM [facility] Bilirubin Total 1.5(H) 0.2 - 1.2 mg/dL 06/23/2025 1:44 PM [facility] eGFR by CKD-EPI >90 >=90 mL/min/1.7 3 m2 06/23/2025 1:44 PM [facility] Comment:Estimated Glomerular Filtration Rate (eGFR) calculated using the CKD-EPI Creatinine Equation (2020), per the National Kidney Foundation and English Society of Nephrology recommendations. Blood BLOOD SPECIMEN / Unknown Venipuncture / Unknown 06/23/2025 1:15 PM CDT 06/23/2025 1:22 PM CDT Maryjane Juares MD LAB - CHEMISTRY ORDERABLES Fi nal Result Performing Organization Address City/[facility]/ZIP Co de Phone Number [facility] [address] [address] * EKG 12-LEAD (06/23/2025 1:07 PM CDT) Ventricular Rate 97 BPM [facility] Atrial Rate 97 BPM [facility] P-R Interval 160 ms [facility] QRS Duration ms 86 ms [facility] Q-T Interval ms 356 ms [facility] QTC Calculation (Bezet) 452 ms [facility] Calculated P [place] 47 degrees [facility] MUSE Calculated R [place] 40 degrees [facility] MUSE Calculated T [place] 54 degrees [facility] MUSE Interpretation EKG Normal sinus rhythm Nonspecific T wave abnormality Abnormal ECG No previous ECGs available Confirmed by MD ELISE, TETE ([id number]) on 06/23/2025 9:09:22 PM [facility] MUSE 06/23/2025 1:07 PM CDT 06/23/2025 9:09 PM CDT Maryjane Juares MD ECG ORDERABLES Edited Result - Final Performing Organization Address [facility] Co de Phone Number [facility] MUSE * LIPID PROFILE (04/16/2025) Blood BLOOD SPECIMEN / Unknown 04/16/2025 Yahaira Mckinnon FINE ARTS INSTRUCTOR-CREDIT OR LOANS OFFICER LAB - CHEMISTRY ORDERABL ES Final Result Performing Organization Address City/[facility]/ZIP Co de Phone Number OTHER LAB * HIV-1 HIV-2 ANTIGEN/ANTIBODY (03/11/2018 5:50 PM CDT) HIV Antigen/Antibod y 1 & 2 Non-reacti ve Non-react bhavana 03/11/2018 6:46 PM CDT [facility] Comment: Neither HIV-1 p24 Antigen nor HIV-1/HIV-2 Antibodies are detected. Blood BLOOD SPECIMEN / Unknown Venipuncture / Unknown 03/11/2018 5:50 PM CDT 03/11/2018 6:01 PM CDT us Cuca Lilly MD LAB - HEMATOLOGY ORDERABLES Fi nal Result Performing Organization Address [facility] Co de Phone Number [address] [phone] * HEPATITIS C AB SCREEN RFLX PCR QUANT (03/11/2018 5:50 PM CDT) Hepatitis C Antibody Non-react bhavana Non-reac tive 03/11/2018 6:50 PM CDT [facility] Comment: Hepatitis C Antibody screen indicates [...] ORDERABLES Fin al Result Performing Organization Address [facility] Co de Phone Number [address] [phone] from Last 3 Months or Most Recently Relevant to Health Maintenance Insurance [employer] Advance Directives * Full Code (Latest Code Status on File) Date Activated Date Inactivated Comments 06/23/2025 6:15 PM 06/26/2025 1:04 PM * Full Code Date Activated Date Inactivated Comments 10/29/2022 2:28 PM 10/30/2022 3:15 PM * Full Code Date Activated Date Inactivated Comments 02/26/2018 5:18 PM 02/27/2018 5:30 PM Care Teams Health Safety Coordinator Relationship Specialty Start Date End Date Herbert Ja[place] [address] [place] [phone] PCP - General 10/30/22 Joanna Bond [facility] Behavioral Health Therapist Behavioral Health 09/30/23
--- OUTSIDE RECORDS SUMMARY | 2025-08-17 10:03 | XMS_ITS | Encounter Summary ---
Author Organization [facility] Address [address] [place] [address] Care Team Providers Care Support Assistant Name Role Phone AddisonHerbert Cedric Primary Care Provider [phone] Joanna Bond [facility] Unavailable Unavailable Reason for Visit * Reason Onset Date Comments MEDICATION REFILL 06/12/2024 Encounter Details Date Type Department Care Team (Late st Contact Info) Description 06/12/2024 Refill [facility] Behavioral Health [address] [place] [address] Vivek Cowan, TESTER VIBRATOR EQUIPMENT-LETTERER [address] [place] [address] MEDICATION REFILL Social History Tobacco [...] Recorded Patient Health Questionnaire-2 Score 0 05/31/2024 [facility] Occupat ional Health - Occupational Stress [...] Sex Assigned at Female 08/25/2024 12:46 PM STROBOROMA OPERATOR Legal Sex Female 6:03 AM STROBOROMA OPERATOR Gender Identity Female 08/25/2024 12:46 PM STROBOROMA OPERATOR Sexual Orientation Not on file documented as of this encounter Functional Status * Is person deaf or have serious hearing difficulty? Answer Date of Assessment Author No 05/18/2024 3:54 PM CDHarman Danielson RN * Is person blind or [...] (Latest Contact Info) Description 08/22/2025 9:00 AM STROBOROMA OPERATOR Hospital Encounter [facility] - Endoscopy Surgery [address] [address] Conner Crisostomo, DO [address] [place] [address] Surgery General 08/22/2025 9:00 AM STROBOROMA OPERATOR Procedure visit [facility] [address], [address] [place] [address] Conner Crisostomo, DO [address] [place] [address] 08/22/2025 9:00 AM STROBOROMA OPERATOR - 08/22/2025 9:20 AM STROBOROMA OPERATOR Surgery [facility] - Endoscopy Surgery [address] [address] Conner Crisostomo, DO [address] [place] [address] ESOPHAGOGASTRODUODENOSCOPY (EGD) DIAGNOSTIC 10/10/2025 9:20 AM STROBOROMA OPERATOR Video Visit [facility] Behavioral Health [address] [place] [phone] Vivek Cowan, TESTER VIBRATOR EQUIPMENT-LETTERER [address] [place] [phone] 10/31/2025 11:00 AM STROBOROMA OPERATOR Office Visit [facility] [address] [place] [address] Conner Crisostomo, [address] [place] [address] Scheduled Procedures Name Priority Associated Diagnoses Date/Ti me ESOPHAGOGASTRODUODENOSCOPY ( EGD) DIAGNOSTIC 08/22/2025 9:00 AM STROBOROMA OPERATOR documented as of this encounter Visit Diagnoses Not on filedocumented in this encounter Care Teams Support Assistant Relationship Specialty Start Date End Date Herbert Jaime [address] [place] [phone] PCP - General 10/30/22 Joanna Bond [facility] Behavioral Health Therapist Behavioral Health 09/30/23 documented as of this encounter
--- OUTSIDE RECORDS SUMMARY | 2025-08-17 10:03 | XMS_ITS | Encounter Summary ---
Author Organization [facility] Address [address] [place] [address] Phone Care Team Providers Care Protector Plate Attacher Name Role Phone Yang Vinson MD Unavailable [phone] Cesar Tang MD Unavailable [phone] Herbert Jaiem [facility] Primary Care Provider [phone] Encounter Details Date Type Department Care Team (Late st Contact Info) Description 02/06/2023 Behavioral Health Patient Survey [facility] Services [address] [place] [address] Mavis Slaughter, [facility] [address] [place] [address] Social History Tobacco Use Types Packs/Day Years [...] st Contact Info) Description 08/19/2025 3:00 PM TEACHER OF THE VISUALLY IMPAIRED Office Visit [facility] - Family [facility] [address] [place] [address] Karla Gamez, DO [address] [place] [address] documented as of this encounter Goals Goal Patient Goal Type Associated Problems Recent Progress Patient-Stated? Author Behavioral Health Behavioral Health On track(2022 9:44 AM TEACHER OF THE VISUALLY IMPAIRED) Yes Mavis Slaughter LCSW Note: I want to get back with being able to communicate with my significant other and help him to not feel unloved or unappreciated. I also want to be able to deal better with stress/anxiety with grandmother situation, within the next six months. Goal Reviewed today with: patient Readiness to change: Ready to change Department associated with goal: [facility] Steps to achieve goal: Patient to be counseled on stress management, during her 45 min individual therapy sessions, 1-2 times per month. Patient to be counseled on healthy assertive communication skills, during her 45 min therapy sessions, 1-2 times per month Patient encouraged to attend the weekly [facility] group therapy Behavioral Health Behavioral Health On track(2022 9:44 AM TEACHER OF THE VISUALLY IMPAIRED) No Mavis Slaughter LCSW Note: Goal: Gayathri will be able to report improved ability to cope with family/relationship stressors, to an acceptable level, within the next six months Goal Reviewed today with: patient Readiness to change: Ready to change Department associated with goal: [facility] Steps to [...] documented as of this encounter Care Teams Protector Plate Attacher Relationship Specialty Start Date End Date Herbert Jaime, [facility] [address] [place] [address] PCP - General Physician Housekeeping Attendant 05/08/22 Yang Vinson MD [address] [place] [address] Obstetrics & Gynecology 11/05/16 Cesar Tang MD [address] [place] [address] Consulting Physician Neurology 12/06/16 08/01/24 documented as of this encounter
--- OUTSIDE RECORDS SUMMARY | 2025-08-17 10:03 | XMS_ITS | Encounter Summary ---
Author Organization [facility] Address [address] [place] [address] Phone Care Team Providers Care Supervisor Poultry Farm Name Role Phone Yang Vinson MD Unavailable [phone] Cesar Tang MD Unavailable [phone] Herbert Jaime [facility] Primary Care Provider [phone] Encounter Details Date Type Department Care Team (Late st Contact Info) Description 09/03/2023 Behavioral Health Patient Survey [facility] Services [address] [place] [id number] Mavis Slaughter, [facility] [address] [place] [address] Social History Tobacco Use Types Packs/Day Years [...] Assessment Author BP 100/62 09/04/2023 2:10 PM CLERICAL METHODS ANALYST Ontis , Loree A, RMA Temp 98.2 09/04/2023 2:10 PM CLERICAL METHODS ANALYST Ontis , Loree A, RMA Pulse 70 09/04/2023 2:10 PM CLERICAL METHODS ANALYST Ontis , Loree A, RMA Resp 18 09/04/2023 2:10 PM CLERICAL METHODS ANALYST Ontis , Loree A, RMA SpO2 99 09/04/2023 2:10 PM CLERICAL METHODS ANALYST Ontis , Loree A, RMA * Initial Score Answer Date of Assessment Author 0 09/04/2023 2:08 PM CLERICAL METHODS ANALYST Ontis, Ra darrian A, RMA * Question Answer Date of Assessment Author Little interest or pleasure in doing things Not at all 09/04/2023 2:08 PM CLERICAL METHODS ANALYST Ontis, Loree A, RMA Feeling down, depressed, or hopeless Not at all 09/04/2023 2:08 PM CLERICAL METHODS ANALYST Ontis, Loree A, RMA * Initial Score Answer Date of Assessment Author 0 09/04/2023 2:08 PM CLERICAL METHODS ANALYST Ontis, Ra darrian A, RMA * Question Answer Date of Assessment Author Little interest or pleasure in doing things Not at all 09/04/2023 2:08 PM CLERICAL METHODS ANALYST Ontis, Loree A, RMA Feeling down, depressed, or hopeless Not at all 09/04/2023 2:08 PM CLERICAL METHODS ANALYST Ontis, Loree A, RMA * Over the past 2 weeks, how often have you been bothered by any of the following problems? Question Answer Date of Assessment Author Patient Health Questionnaire -2 Score 0 09/04/2023 2:08 PM CLERICAL METHODS ANALYST Ontis, Loree A, RMA documented as of this encounter Mental Status * Question Answer Entry Date Author BP 100/62 09/04/2023 2:10 PM CLERICAL METHODS ANALYST Ontis , Loree A, RMA Temp 98.2 09/04/2023 2:10 PM CLERICAL METHODS ANALYST Ontis , Loree A, RMA Pulse 70 09/04/2023 2:10 PM CLERICAL METHODS ANALYST Ontis , Loree A, RMA SpO2 99 09/04/2023 2:10 PM CLERICAL METHODS ANALYST Ontis , Loree A, RMA * Initial Score Answer Entry Date Author 0 09/04/2023 2:08 PM CLERICAL METHODS ANALYST Ontis, Ra darrian A, RMA * Question Answer Entry Date Author Little interest or pleasure in doing things Not at all 09/04/2023 2:08 PM CLERICAL METHODS ANALYST RoseLoree RMApril Feeling down, depressed, or hopeless Not at all 09/04/2023 2:08 PM CLERICAL METHODS ANALYST Loree Rose MAYTE documented in this encounter Plan of Treatment Upcoming Encounters Date Type Department Care Team (Late st Contact Info) Description 08/19/2025 3:00 PM CLERICAL METHODS ANALYST Office Visit [facility] - Family Medicine - [place] [address] [place] [address] Karla Gamez, DO [address] [place] [address] documented as of this encounter Goals Goal Patient Goal Type Associated Problems Recent Progress Patient-Stated? Author Behavioral Health Behavioral Health On track(2022 9:44 AM CLERICAL METHODS ANALYST) Yes Mavis Slaughter, CORY Note: I want to get back with being able to communicate with my significant other and help him to not feel unloved or unappreciated. I also want to be able to deal better with stress/anxiety with grandmother situation, within the next six months. Goal Reviewed today with: patient Readiness to change: Ready to change Department associated with goal: [facility] Steps [...] Health Behavioral Health On track(2022 9:44 AM CLERICAL METHODS ANALYST) No Mavis Slaughter LCSW Note: Goal: Gayathri will be able to report improved ability to cope with family/relationship stressors, to an acceptable level, within the next six months Goal Reviewed today with: patient Readiness to change: Ready to change Department associated with goal: [facility] Steps [...] documented as of this encounter Care Teams Supervisor Poultry Farm Relationship Specialty Start Date End Date Herbert Jaime, PAC [address] [place] [address] PCP - General Physician Seed Technician 05/08/22 Yang Vinson MD [address] [address] Obstetrics & Gynecology 11/05/16 Cesar Tang MD [address] [address] Consulting Physician Neurology 12/06/16 08/01/24 documented as of this encounter
--- OUTSIDE RECORDS SUMMARY | 2025-08-17 10:03 | XMS_ITS | Encounter Summary ---
Author Organization [facility] Address [address] [place] [address] Care Team Providers Care Auto Club Safety Program Coordinator Name Role Phone AddisonHerbert Cedric Primary Care Provider [phone] Joanna Bond [facility] Unavailable Unavailable Reason for Visit * Reason Onset Date Comments MEDICATION REFILL 06/26/2025 Encounter Details Date Type Department Care Team (Late st Contact Info) Description 06/26/2025 Refill [facility] PHYSICIAN STD [address] [address] Oniel Culp III, MD [address] [id number] MEDICATION REFILL Social History Tobacco Use Types [...] Recorded Patient Health Questionnaire-2 Score 1 06/13/2025 [facility] of Occupat ional [facility] - Occupational Stress Questionnaire Answer Date Recorded [...] place to sleep or slept in a fdc (including now)? No 10/29/2022 Housing Stability Vital Sign Answer Steve e Recorded In the last 12 months, was t here a time when you were not able to pay the mortgage or rent on time? No 06/23/2025 In the past 12 months, how m any times have you moved where you were living? 0 06/23/2025 At any time in the past 12 m [facility], were you homeless or living in a fdc (including now)? No 06/23/2025 Comments No Sex and Gender Information Value Date Recorded Sex Assigned at Female 08/25/2024 12:46 PM FLIGHT LINE SERVICE ATTENDANT Legal Sex Female 6:03 AM FLIGHT LINE SERVICE ATTENDANT Gender Identity Female 08/25/2024 12:46 PM FLIGHT LINE SERVICE ATTENDANT Sexual Orientation Not on file documented as [...] (Latest Contact Info) Description 08/22/2025 9:00 AM FLIGHT LINE SERVICE ATTENDANT Hospital Encounter [facility] - Endoscopy Surgery [address] [address] Conner Crisostomo, [address] [place] [phone] Surgery General 08/22/2025 9:00 AM FLIGHT LINE SERVICE ATTENDANT Procedure visit [facility] [address], [address] [place] [phone] Conner Crisostomo, [address] [place] [phone] 08/22/2025 9:00 AM FLIGHT LINE SERVICE ATTENDANT - 08/22/2025 9:20 AM FLIGHT LINE SERVICE ATTENDANT Surgery [facility] - Endoscopy Surgery [address] [address] Conner Crisostomo, DO [address] [place] [address] ESOPHAGOGASTRODUODENOSCOPY (EGD) DIAGNOSTIC 10/10/2025 9:20 AM FLIGHT LINE SERVICE ATTENDANT Video Visit [facility]al Health [address] [place] [phone] Vivek Cowan, COTTON FARMWORKER-JUNIOR SYSTEMS ADMINISTRATOR [address] [place] [address] 10/31/2025 11:00 AM FLIGHT LINE SERVICE ATTENDANT Office Visit [facility] [address], [address] [place] [address] Conner Crisostomo, DO [address] [place] [address] Scheduled Procedures Name Priority Associated Diagnoses Date/Ti me ESOPHAGOGASTRODUODENOSCOPY ( EGD) DIAGNOSTIC 08/22/2025 9:00 AM FLIGHT LINE SERVICE ATTENDANT documented as of this encounter Visit Diagnoses Not on filedocumented in this encounter Care Teams Auto Club Safety Program Coordinator Relationship Specialty Start Date End Date Herbert Jaime [address] [place] [phone] PCP - General 10/30/22 Joanna Bond [facility] Behavioral Health Therapist Behavioral Health 09/30/23 documented as of this encounter
--- OUTSIDE RECORDS SUMMARY | 2025-08-17 10:03 | XMS_ITS | Clinical Summary ---
Author Organization [facility] Address [address] [place] [address] Care Team Providers Care Merchandise Flow Associate Name Role Phone Yang Vinson MD Unavailable [phone] Herbert Jaime Primary Care Provider [phone] Allergies Active Allergy Reactions Criticality Noted Date Comments Sulfamethoxazole-Trimethop rim Shortness of Breath 01/15/2016 Miconazole Nitrate Other (see Comments) 11/05/2016 Nsaids Other (see Comments) 10/29/2022 Lmenn-Azmjxbj-Ldtcau Other (see Comments) 11/13/2022 I have had [...] Encounters Date Type Department Care Team Description 08/17/2025 Travel 08/03/2025 Telephone [facility] [address] [place] [phone] Karla Gamez DO 06/28/2025 Travel 06/27/2025 Transcribe Orders [facility] Services 1 [place] [phone] Provider, Unknown Diarrhea, unspecified type (Primary Dx) 06/24/2025 Telephone [facility] [address] [place] [phone] Herbert Jaime, PAC 06/23/2025 5:37 AM CDT - 06/23/2025 11:37 AM CDT Emergency [facility] Emergency 1 [place] [phone] Jarek Estrada DO Bowel perforation Discharge Disposition: [facility] Term [facility] 06/20/2025 8:51 AM CDT - 06/20/2025 11:59 PM CDT Hospital Encounter [facility] Mammography [address] [place] [address] Yang Vinson MD Discharge Disposition: Discharged to home or Selfcare 06/20/2025 Travel 06/09/2025 Transcribe Orders [facility] [address] [place] [address] Yang Vinson MD Visit for screening mammogram (Primary [...] Diabetes Maternal Aunt Ronni Aneurysm Maternal Grandfather Bill Was in groin Heart Attack Maternal Grandfather [...] st Contact Info) Description 08/19/2025 3:00 PM INJECTION MACHINE OPERATOR Office Visit [facility] [address] [place] [address] Karla Gamez, DO [address] [address] Health Maintenance Due Date Last Done Comments Varicella Immunization (1 of 2 - 13+ 2-dose series) 1997 Hepatitis B Immunization (1 of 3 - 19+ 3-dose series) 2003 Human Papillomavirus (HPV) Immunization (1 - 3-dose SCDM series) 2011 Influenza Immunization (#1) 2025 06/17/2024 SARS-COV-2 Immunization (1 - season) 2025 Mammogram 06/20/2026 06/20/2025 Respiratory [...] Type Associated Problems Recent Progress Patient-Stated? Author [facility] Behavioral Health On track(2022 9:44 AM INJECTION MACHINE OPERATOR) Yes Mavis Slaughter, CORY Note: I want to get back with being able to communicate with my significant other and help him to not feel unloved or unappreciated. I also want to be able to deal better with stress/anxiety with grandmother situation, within the next six months. Goal Reviewed today with: patient Readiness to change: Ready to change Department associated with goal: [facility] BE[facility]AVIOR[facility] Steps to achieve goal: Patient to be counseled on stress management, during her 45 min individual therapy sessions, 1-2 times per month. Patient to be counseled on healthy assertive communication skills, during her 45 min therapy sessions, 1-2 times per month Patient encouraged to attend the weekly [facility] group therapy Behavioral [facility] Behavioral Health On track(2022 9:44 AM INJECTION MACHINE OPERATOR) No Mavis Slaughter, CORY Note: Goal: Gayathri will be able to report improved ability to cope with family/relationship stressors, to an acceptable level, within the next six months Goal Reviewed today with: patient Readiness to change: Ready to change Department associated with goal: [facility] HEALTH SERVICES Steps to achieve goal: [...] Negative Negative, Invalid 06/28/2025 11:48 AM CDT [facility] Other STOOL SPECIMEN / Unknown Non-Phlebotomy Collection / Unknown 06/28/2025 10:09 AM CDT 06/28/2025 11:00 AM CDT us Not On File Provider MICROBIOLOGY - GENERAL ORDE RABLES Final Result [facility] [address] [place] [address] * Culture, Blood (06/23/2025 8:40 AM CDT) Only the most recent of2 resultswithin the time period is included. [facility] CULTURE RESULTS NO GROWTH WITHIN 5 DAYS, FINAL RESULT 06/28/2025 9:00 AM CDT [facility] Culture BLOOD SPECIMEN / Unknown Venipuncture / Unknown 06/23/2025 8:40 AM CDT 06/23/2025 8:54 AM CDT us Jarek Estrada DO MICROBIOLOGY - GENERAL ORDERABLES Final Result Performing Organization Address City/[facility]/ZIP Co de Phone Number [facility] [address] [place] [address], * TROPONIN I, HIGH SENSITIVITY (HSTRP) (06/23/2025 7:58 AM CDT) Only the most recent of2 resultswithin the time period is included. [facility] TROPONIN I, HIGH SENSITIVITY- [place] <2.7 <=14.0 ng/L 06/23/2025 8:33 AM CDT [facility] Comment: High-sensitivity troponin I results are reported in ng/L making the result appear to be 1,000 times higher than the contemporary troponin I value which is reported in ng/ml. Results from [place]. Blood Venipuncture / Unknown 06/23/2025 7:58 AM CDT 06/23/2025 8:08 AM CDT us Jarek Estrada DO CHEMISTRY ORDERABLES Fi nal Result [facility] [address] [place] [address] * CT ABDOMEN PELVIS W/ CONTRAST (06/23/2025 [...] CDT DICTATING PHYSICIAN: Cecilio Reyes M.D. - [facility] Examination: CT abdomen and pelvis [...] 06/23/2025 DICTATING PHYSICIAN: Cecilio [facility] Examination: CT abdomen and pelvis with [...] Estrada and acknowledged.06/23/2025 8:08 AM us Jarek Matthews Rapoff DO IMG CT ORDERABLES Final Result * EKG 12 LEAD (06/23/2025 7:00 AM CDT) Ventricular Rate 68 BPM EXTERNAL EKG Atrial Rate 68 BPM EXTERNAL EKG P-R Interval 156 ms EXTERNAL EKG QRS Duration 84 ms EXTERNAL EKG Q-T Duration 438 ms EXTERNAL EKG QTC CALCULATION 465 ms EXTERNAL EKG P Cherry Log 37 degrees EXTERNAL EKG R Cherry Log 53 degrees EXTERNAL EKG T Cherry Log 44 degrees EXTERNAL EKG 06/23/2025 7:00 AM CDT Impressions EXTERNAL EKG - 06/23/2025 10:03 PM CDT Normal sinus rhythm Normal ECG When compared with ECG of 08-MAY-2022 09:39, No significant change was found ~ Confirmed by AMANDEEP RANGEL ([id number]) on 06/23/2025 10:03:23 PM Narrative Procedure Note Amandeep Rangel MD - 06/23/2025 IMPRESSION: Normal sinus rhythm Normal ECG When compared with ECG of 08-MAY-2022 09:39, No significant change was found ~ Confirmed by AMANDEEP RANGEL ([id number]) on 06/23/2025 10:03:23 PM us Jarek Estrada DO IMG ECG ORDERABLES Adrianne l Result EXTERNAL EKG * (ABNORMAL) Urinalysis w/ Reflex (06/23/2025 6:02 AM CDT) Pathologist [facility] SPECIFIC GRAVITY 1.015 1.003 - 1.030 06/23/2025 6:18 AM CDT [facility] URINE PH 8.0 5.0 - 9.0 06/23/2025 6:18 AM CDT [facility] WBC ESTERASE Negative Negative 06/23/2025 6:18 AM CDT [facility] NITRITE Negative Negative 06/23/2025 6:18 AM CDT [facility] PROTEIN, RANDOM URINE 15 mg/dL(A) Negative 06/23/2025 6:18 AM CDT [email or web address] URINE GLUCOSE, QUAL Negative Negative 06/23/2025 6:18 AM CDT [email or web address] URINE KETONES Negative Negative 06/23/2025 6:18 AM CDT [email or web address] UROBILINOGEN Normal Normal mg/dL 06/23/2025 6:18 AM CDT [email or web address] URINE BLOOD Negative Negative elizabeth/ul 06/23/2025 6:18 AM CDT [email or web address] LAB URINALYSIS COLOR Yellow 06/23/20 6:18 AM CDT [email or web address] LAB URINALYSIS CLARITY Slightly Cloudy 06/23/2025 6:18 AM CDT [email or web address] Urine URINE SPECIMEN / Unknown Non-Phlebotomy Collection / Unknown 06/23/2025 6:02 AM CDT 06/23/2025 6:11 AM CDT us Dipak Dempsey MD URINE ORDERABLES Final Re sult [facility] [address] [place] [address] * Critical Care (06/23/2025 6:01 AM CDT) [...] - 12.00 10(3)/mcL 06/23/2025 6:09 AM CDT [email or web address] RBC 4.43 3.80 - 5.30 10(6)/mcL 06/23/2025 6:09 AM CDT [email or web address] HEMOGLOBIN (HGB) 14.0 12.0 - 15.8 g/dL 06/23/2025 6:09 AM CDT [facility] HEMATOCRIT (HCT) 41.9 36.0 - 47.0 % 06/23/2025 6:09 AM CDT [email or web address] LAB MCV 94.6 82.0 - 96.0 fL 06/23/2025 6:09 AM CDT [facility] MCH 31.6 26.0 - 34.0 pg 06/23/2025 6:09 AM CDT [facility] MCHC 33.4 31.0 - 36.0 g/dL 06/23/2025 6:09 AM CDT [facility] PLATELET COUNT 259 140 - 440 10(3)/mcL 06/23/2025 6:09 AM CDT [facility] RDW 11.9 11.8 - 15.5 % 06/23/2025 6:09 AM CDT [facility] MPV 9.9 9.7 - 12.4 fL 06/23/2025 6:09 AM CDT [facility] NEUTROPHILS 46.9(L) 47.0 - 73.0 % 06/23/2025 6:09 AM CDT [facility] LYMPHOCYTES 43.0(H) 18.0 - 42.0 % 06/23/2025 6:09 AM CDT [facility] MONOCYTES 8.2 4.0 - 12.0 % 06/23/2025 6:09 AM CDT [facility] EOSINOPHILS 1.0 0.0 - 5.0 % 06/23/2025 6:09 AM CDT [facility] BASOPHILS 0.7 0.0 - 1.0 % 06/23/2025 6:09 AM CDT [facility] IMMATURE GRANULOCYTE 0.2 0.0 - 0.4 % 06/23/2025 6:09 AM CDT [facility] ABSOLUTE NEUTROPHILS 2.80 1.60 - 7.70 10(3)/mcL 06/23/2025 6:09 AM CDT [email or web address] ABSOLUTE LYMPHOCYTES 2.57 1.30 - 3.20 10(3)/mcL 06/23/2025 6:09 AM CDT [email or web address] ABSOLUTE MONOCYTES 0.49 0.20 - 1.00 10(3)/mcL 06/23/2025 6:09 AM CDT [email or web address] ABSOLUTE EOSINOPHIL 0.06 0.00 - 0.40 10(3)/mcL 06/23/2025 6:09 AM CDT [email or web address] ABSOLUTE BASOPHILS 0.04 0.00 - 0.10 10(3)/mcL 06/23/2025 6:09 AM CDT [email or web address] ABSOLUTE IMMATURE GRANULOCYTE 0.01 0.00 - 0.03 10 (3) mcL. 06/23/2025 6:09 AM CDT [email or web address] NRBC PER 100 WBC 0 06/23/20 6:09 AM CDT [email or web address] Blood Venipuncture / Unknown 06/23/2025 5:55 AM CDT 06/23/2025 6:07 AM CDT Dipak Dempsey MD HEMATOLOGY ORDERABLES Fin al Result Performing Organization Address City/[facility]/ZIP Co de Phone Number [facility] [address] [place] [address] * Lipase (06/23/2025 5:55 AM CDT) LIPASE 43 8 - 78 U/L 06/23/2025 6:29 AM CDT [facility] Blood Venipuncture / Unknown 06/23/2025 5:55 AM CDT 06/23/2025 6:07 AM CDT Dipak Dempsey MD CHEMISTRY ORDERABLES Adrianne l Result [facility] [address] [place] [address] * (ABNORMAL) CMP (06/23/2025 5:55 AM CDT) SODIUM 141 136 - 145 mmol/L 06/23/2025 6:29 AM CDT [facility] POTASSIUM 3.8 3.5 - 5.1 mmol/L 06/23/2025 6:29 AM CDT [facility] CHLORIDE 107 98 - 107 mmol/L 06/23/2025 6:29 AM CDT [facility] CO2, VENOUS 25 22 - 30 mmol/L 06/23/2025 6:29 AM CDT [facility] ANION GAP 12.8 <18.0 mmol/L 06/23/2025 6:29 AM CDT [facility] GLUCOSE 117(H) 70 - 99 mg/dL 06/23/2025 6:29 AM CDT [facility] BUN 14 5 - 18 mg/dL 06/23/2025 6:29 AM CDT [facility] CREATININE, BLOOD 0.73 0.60 - 1.00 mg/dL 06/23/2025 6:29 AM CDT [facility] BUN/CREATININE RATIO 19 12 - 20 ratio 06/23/2025 6:29 AM CDT [facility] TOTAL PROTEIN 7.0 6.0 - 8.0 g/dL 06/23/2025 6:29 AM CDT [facility] ALBUMIN 4.1 3.5 - 5.0 g/dL 06/23/2025 6:29 AM CDT [facility] A/G RATIO 1.4 1.0 - 2.2 06/23/2025 6:29 AM CDT [facility] CALCIUM 9.2 8.7 - 10.5 mg/dL 06/23/2025 6:29 AM CDT [facility] T BILI 1.0 0.2 - 1.2 mg/dL 06/23/2025 6:29 AM CDT [facility] SGOT (AST) 15 <43 U/L 06/23/2025 6:29 AM CDT [facility] SGPT (ALT) 14 <56 U/L 06/23/2025 6:29 AM CDT [facility] ALKALINE PHOSPHATASE 50 40 - 150 U/L 06/23/2025 6:29 AM CDT [email or web address] GFR, ESTIMATED >60 >=60 06/23/2025 6:29 AM CDT [email or web address] Comment: Creatinine Clearance is the preferred criteria for selecting drug dose adjustments in renally impaired patients. The GFR is provided as additional pertinent clinical information. GFR is reported in mL/min/1.73 sq m. Calculation based on the 2020 Chronic Kidney Disease Epidemiology Collaboration (CKD-EPI) equation refit without adjustment for race. GFR, EST. >60 >=60 6:29 AM CDT [facility] Comment: Creatinine Clearance is the preferred criteria for selecting drug dose adjustments in renally impaired patients. The GFR is provided as additional pertinent clinical information. GFR is reported in mL/min/1.73 sq m. Calculation based on the 2009 Chronic Kidney Disease Epidemiology Collaboration (CKD-EPI). GFR, EST. NONAFRICAN >60 >=60 06/23/2025 6:29 AM CDT [facility] Comment: Creatinine Clearance is the [...] us Dipak Dempsey MD CHEMISTRY ORDERABLES Adrianne erika Result [facility] [address] [place] [address] * EKG SCAN (06/23/2025 12:00 AM CDT) 06/23/2025 us Provider Scan IMG ECG ORDERABLES Final Result RESULTING AGENCY * [facility] SCREENING BILATERAL DIGITAL W CAD W RUT (06/20/2025 9:10 AM CDT) Anatomical Region Laterality Modality breast Bilateral Mammography 06/20/2025 8:40 AM CDT Impressions 06/20/2025 5:58 PM CDT IMPRESSION: There is no mammographic evidence of malignancy. RECOMMENDATION: Annual screening mammography. BI-RADS 1: Negative. Narrative 06/20/2025 5:58 PM CDT [facility] SCREENING BILATERAL DIGITAL W CAD W RUT [...] Result from Last 3 Months Insurance MEDICAID [facility] Care Teams Merchandise Flow Associate Relationship Specialty Start Date End Date Herbert Jaime, [address] [place] [address] PCP - General Physician Quality Audit Representative 05/08/22 Yang Vinson MD [address] [place] [address] Obstetrics & Gynecology 11/05/16
--- OUTSIDE RECORDS SUMMARY | 2025-08-17 10:03 | XMS_ITS | Encounter Summary ---
Author Organization [facility] Address [address] [place] [address] Phone Care Team Providers Care Slubber Hand Name Role Phone Yang Vinson MD Unavailable [phone] Cesar Tang MD Unavailable [phone] Herbert Jaime [facility] Primary Care Provider [phone] Encounter Details Date Type Department Care Team (Late st Contact Info) Description 09/19/2022 Behavioral Health Patient Survey [facility] Health Services [address] [place] [address] Mychart, Generic Provider [address] [place] [address] Social History Tobacco Use Types Packs/Day Years [...] Coronavirus/COVID-19? No / Unsure 09/19/2022 9:13 AM CUSTOMER SERVICE AGENT documented as of this encounter Plan of Treatment Upcoming Encounters Date Type Department Care Team (Late st Contact Info) Description 08/19/2025 3:00 PM CUSTOMER SERVICE AGENT Office Visit [facility] Medical Group - Family Medicine - [place] [address] [place] [address] Karla Gamez, DO [address] [place] [address] documented as of this encounter Goals Goal Patient Goal Type Associated Problems Recent Progress Patient-Stated? Author Behavioral Health Behavioral Health On track(2022 9:44 AM CUSTOMER SERVICE AGENT) Yes Mavis Slaughter LCSW Note: I want [...] Health Behavioral Health On track(2022 9:44 AM CUSTOMER SERVICE AGENT) No Mavis Slaughter LCSW Note: Goal: Gayathri [...] documented as of this encounter Care Teams Slubber Hand Relationship Specialty Start Date End Date Herbert Jaime, PAC [address] [place] [address] PCP - General Physician Him Analyst 05/08/22 Yang Vinson MD [address] [address] Obstetrics & Gynecology 11/05/16 Cesar Tang MD [address] [address] Consulting Physician Neurology 12/06/16 08/01/24 documented as of this encounter
--- OUTSIDE RECORDS SUMMARY | 2025-08-17 10:03 | XMS_ITS | Encounter Summary ---
Author Organization [facility] Health Address [address] [place] [address] Care Team Providers Care Boom Boss Name Role Phone Herbert Jaime Primary Care Provider [phone] Joanna Bond [facility] Unavailable Unavailable Encounter Details Date Type Department [...] Recorded Patient Health Questionnaire-2 Score 0 07/15/2025 [facility] [place] of Occupat ional Health - Occupational Stress [...] place to sleep or slept in a skilled nursing (including now)? No 10/29/2022 Housing Stability Vital Sign Answer Steve e Recorded In the last 12 months, was t here a time when you were not able to pay the mortgage or rent on time? No 06/23/2025 In the past 12 months, how m any times have you moved where you were living? 0 06/23/2025 [facility] time [facility] were you [facility] or living in a skilled nursing (including now)? No 06/23/2025 Comments No Sex and Gender Information Value Date Recorded Sex Assigned at Female 08/25/2024 12:46 PM POLISHER IMPLANT Legal Sex Female 6:03 AM POLISHER IMPLANT Gender Identity Female 08/25/2024 12:46 PM POLISHER IMPLANT Sexual Orientation Not on file documented as [...] (Latest Contact Info) Description 08/22/2025 9:00 AM POLISHER IMPLANT Hospital Encounter [facility] - Endoscopy Surgery [address] [address] Conner Crisostomo, DO [address] [place] [address] Surgery General 08/22/2025 9:00 AM POLISHER IMPLANT Procedure visit [facility] [address], [address] [place] [phone] Conner Crisostomo, DO [address] [place] [phone] 08/22/2025 9:00 AM POLISHER IMPLANT - 08/22/2025 9:20 AM POLISHER IMPLANT Surgery [facility] - Endoscopy Surgery [address] [address] Conner Crisostomo, DO [address] [place] [phone] ESOPHAGOGASTRODUODENOSCOPY (EGD) DIAGNOSTIC 10/10/2025 9:20 AM POLISHER IMPLANT Video Visit [facility] Health Behavioral Health [address] [facility] [place] [phone] Vivek Cowan, SAFETY RISK LEAD-SPEARER [address] [place] [phone] 10/31/2025 11:00 AM POLISHER IMPLANT Office Visit [facility] [address], [address] [place] [address] Conner rCisostomo, [address] [place] [address] Scheduled Procedures Name Priority Associated Diagnoses Date/Ti me ESOPHAGOGASTRODUODENOSCOPY ( EGD) DIAGNOSTIC 08/22/2025 9:00 AM POLISHER IMPLANT documented as of this encounter Visit Diagnoses Not on filedocumented in this encounter Care Teams Boom Boss Relationship Specialty Start Date End Date Herbert Jaime [address] [place] [address] PCP - General 10/30/22 Joanna Bond [facility] Behavioral Health Therapist Behavioral Health 09/30/23 documented as of this encounter
--- OUTSIDE RECORDS SUMMARY | 2025-08-17 10:03 | XMS_ITS | Encounter Summary ---
Author Organization [facility] Address [address] [place] [address] Phone Care Team Providers Care Director Of Labor And Delivery Name Role Phone Yang Vinson MD Unavailable [phone] Cesar Tang MD Unavailable [phone] Herbert Jaime [facility] Primary Care Provider [phone] Encounter Details Date Type Department Care Team (Late st Contact Info) Description 04/25/2023 Behavioral Health Patient Survey [facility] Behavioral Health Services [address] [place] [address] Mavis Slaughter, [facility] [address] [place] [address] Social History Tobacco Use Types Packs/Day Years [...] st Contact Info) Description 08/19/2025 3:00 PM NETEZZA ARCHITECT Office Visit [facility] Medical Group - Family [facility] [place] [address] [place] [address] Karla Gamez, DO [address] [place] [address] documented as of this encounter Goals Goal Patient Goal Type Associated Problems Recent Progress Patient-Stated? Author Behavioral Health Behavioral Health On track(2022 9:44 AM NETEZZA ARCHITECT) Yes Mavis Slaughter LCSW Note: I want to get back with being able to communicate with my significant other and help him to not feel unloved or unappreciated. I also want to be able to deal better with stress/anxiety with grandmother situation, within the next six months. Goal Reviewed today with: patient Readiness to change: Ready to change Department associated with goal: [facility] BEHAVIORAL HEALTH SERVICES Steps to achieve goal: Patient to be counseled on stress management, during her 45 min individual therapy sessions, 1-2 times per month. Patient to be counseled on healthy assertive communication skills, during her 45 min therapy sessions, 1-2 times per month Patient encouraged to attend the weekly [facility] group therapy Behavioral Health Behavioral Health On track(2022 9:44 AM NETEZZA ARCHITECT) No Mavis Slaughter, CORY Note: Goal: Gayathri will be able to report improved ability to cope with family/relationship stressors, to an acceptable level, within the next six months Goal Reviewed today with: patient Readiness to change: Ready to change Department associated with goal: [facility]AVIORAL HEALTH SERVICES Steps to [...] documented as of this encounter Care Teams Director Of Labor And Delivery Relationship Specialty Start Date End Date Herbert Jaime, PAC [address] [place] [address] PCP - General Physician Spice Fumigator 05/08/22 Yang Vinson MD [address] [place] [address] Obstetrics & Gynecology 11/05/16 Cesar Tang MD [address] [place] [address] Consulting Physician Neurology 12/06/16 08/01/24 documented as of this encounter
--- OUTSIDE RECORDS SUMMARY | 2025-08-17 10:03 | XMS_ITS | Encounter Summary ---
Author Organization [facility] Address [address] [place] [address] Phone Care Team Providers Care Supervisor Brake Repair Name Role Phone Yang Vinson MD Unavailable [phone] Cesar Tang MD Unavailable [phone] Alex Avilez PAC Primary Care Provider U Herbert Rehman PAC Primary Care Provider + [phone] Encounter Details Date Type Department Care Team (Late st Contact Info) Description 03/01/2022 Behavioral Health Patient Survey [facility] 1 [place] [address] Mychart, Generic Provider [address] [place] [address] Social History Tobacco Use Types Packs/Day Years [...] st Contact Info) Description 08/19/2025 3:00 PM BOARD WRITER Office Visit [facility] - Family Medicine - [place] [address] [place] [address] Karla Gamez, DO [address] [place] [address] documented as of this encounter Goals Goal Patient Goal Type Associated Problems Recent Progress Patient-Stated? Author Behavioral Health Behavioral Health On track(2022 9:44 AM BOARD WRITER) Yes Mavis Slaughter LCSW Note: I want to get back with being able to communicate with my significant other and help him to not feel unloved or unappreciated. I also want to be able to deal better with stress/anxiety with grandmother situation, within the next six months. Goal Reviewed today with: patient Readiness to change: Ready to change Department associated with goal: [facility] Steps to achieve goal: Patient to be counseled on stress management, during her 45 min individual therapy sessions, 1-2 times per month. Patient to be counseled on healthy assertive communication skills, during her 45 min therapy sessions, 1-2 times per month Patient encouraged to attend the weekly [facility] group therapy Behavioral Health Behavioral Health On track(2022 9:44 AM BOARD WRITER) No Mavis Slaughter LCSW Note: Goal: Gayathri will be able to report improved ability to cope with family/relationship stressors, to an acceptable level, within the next six months Goal Reviewed today with: patient Readiness to change: Ready to change Department associated with goal: [facility] Steps to achieve [...] as of this encounter Care Teams Supervisor Brake Repair Relationship Specialty Start Date End Date Alex Avilez, [facility] [address] [address] PCP - General Physician Desktop Support Associate 03/16/21 05/07/22 Herbert Jaime, [facility] [address] [place] [address] PCP - General Physician Desktop Support Associate 05/08/22 Yang Vinson MD [address] [address] Obstetrics & Gynecology 11/05/16 Cesar Tang MD [address] [address] Consulting Physician Neurology 12/06/16 08/01/24 documented as of this encounter
--- OUTSIDE RECORDS SUMMARY | 2025-08-17 10:03 | XMS_ITS | Encounter Summary ---
Author Organization [facility] Address [address] [place] [address] Phone Care Team Providers Care Health Center Manager Name Role Phone Yang Vinson MD Unavailable [phone] Cesar Tang MD Unavailable [phone] [facility] Primary Care Provider + [phone] Encounter Details Date Type Department Care Team (Late st Contact Info) Description 08/07/2022 Behavioral Health Patient Survey [facility] 1 [place] [address] Mychart, Generic Provider [address] [place] [address] Social History Tobacco Use Types Packs/Day Years [...] Coronavirus/COVID-19? No / Unsure 08/07/2022 12:23 PM BIOMED TECH documented as of this encounter Plan of Treatment Upcoming Encounters Date Type Department Care Team (Late st Contact Info) Description 08/19/2025 3:00 PM BIOMED TECH Office Visit [facility] Medical Group - Family Medicine - [place] [address] [place] [address] Karla Gamez, DO [address] [place] [address] documented as of this encounter Goals Goal Patient Goal Type Associated Problems Recent Progress Patient-Stated? Author Behavioral Health Behavioral Health On track(2022 9:44 AM BIOMED TECH) Yes Mavis Slaughter LCSW Note: I want [...] Health Behavioral Health On track(2022 9:44 AM BIOMED TECH) No Mavis Slaughter LCSW Note: Goal: Gayathri [...] of this encounter Care Teams Health Center Manager Relationship Specialty Start Date End Date Herbert Jaime, [facility] [address] [place] [address] PCP - General Physician Loss Prevention Lead 05/08/22 Yang Vinson MD [address] [address] Obstetrics & Gynecology 11/05/16 Cesar Tang MD [address] [address] Consulting Physician Neurology 12/06/16 08/01/24 documented as of this encounter
--- OUTSIDE RECORDS SUMMARY | 2025-08-17 10:03 | XMS_ITS | Encounter Summary ---
Author Organization [facility] Address [address] [place] [address] Phone Care Team Providers Care Sales Development Director Name Role Phone Yang Vinson MD Unavailable [phone] Cesar Tang MD Unavailable [phone] Herbert Jaime [facility] Primary Care Provider + [phone] Encounter Details Date Type Department Care Team (Late st Contact Info) Description 06/19/2022 Behavioral Health Patient Survey [facility] 1 [place] [address] Mychart, Generic Provider [address] [place] [address] Social History Tobacco Use Types Packs/Day Years [...] Contact Info) Description 08/19/2025 3:00 PM PUBLIC MESSAGE SERVICE SUPERVISOR Office Visit [facility] Medical Group - Family Medicine - [place] [address] [place] [address] Karla Gamez, DO [address] [place] [address] documented as of this encounter Goals Goal Patient Goal Type Associated Problems Recent Progress Patient-Stated? Author Behavioral Health Behavioral Health On track(2022 9:44 AM PUBLIC MESSAGE SERVICE SUPERVISOR) Yes Mavis Slaughter, CORY Note: I want to get back with being able to communicate with my significant other and help him to not feel unloved or unappreciated. I also want to be able to deal better with stress/anxiety with grandmother situation, within the next six months. Goal Reviewed today with: patient Readiness to change: Ready to change Department associated with goal: [facility] Steps to achieve goal: Patient to be counseled on stress management, during her 45 min individual therapy sessions, 1-2 times per month. Patient to be counseled on healthy assertive communication skills, during her 45 min therapy sessions, 1-2 times per month Patient encouraged to attend the weekly [facility] group therapy Behavioral Health Behavioral Health On track(2022 9:44 AM PUBLIC MESSAGE SERVICE SUPERVISOR) No Mavis Slaughter, CORY Note: Goal: Gayathri will be able to report improved ability to cope with family/relationship stressors, to an acceptable level, within the next six months Goal Reviewed today with: patient Readiness to change: Ready to change Department associated with goal: [facility] Steps to achieve goal: [...] documented as of this encounter Care Teams Sales Development Director Relationship Specialty Start Date End Date Herbert Jaime, [facility] [address] [place] [address] PCP - General Physician Deputy Clerk Of Court 05/08/22 Yang Vinson MD [address] [address] Obstetrics & Gynecology 11/05/16 Cesar Tang MD [address] [address] Consulting Physician Neurology 12/06/16 08/01/24 documented as of this encounter
--- OUTSIDE RECORDS SUMMARY | 2025-08-17 10:03 | XMS_ITS | Encounter Summary ---
Author Organization [facility] Address [address] [place] [address] Phone Care Team Providers Care Brand Designer Name Role Phone Yang Vinson MD Unavailable [phone] Cesar Tang MD Unavailable [phone] Herbert Jaime [facility] Primary Care Provider + [phone] Encounter Details Date Type Department Care Team (Late st Contact Info) Description 05/14/2022 Behavioral Health [facility] Survey [facility] 1 [place] [address] Mychart, Generic Provider [address] [place] [address] Social History Tobacco Use Types Packs/Day Years [...] st Contact Info) Description 08/19/2025 3:00 PM STRUCTURAL STEEL ERECTOR Office Visit [facility] - Family Medicine - [place] [address] [place] [address] Karla Gamez, DO [address] [place] [address] documented as of this encounter Goals Goal Patient Goal Type Associated Problems Recent Progress Patient-Stated? Author Behavioral Health Behavioral Health On track(2022 9:44 AM STRUCTURAL STEEL ERECTOR) Yes Mavis Slaughter, CORY Note: I want to get back with being able to communicate with my significant other and help him to not feel unloved or unappreciated. I also want to be able to deal better with stress/anxiety with grandmother situation, within the next six months. Goal Reviewed today with: patient Readiness to change: Ready to change Department associated with goal: [facility] Steps to achieve goal: Patient to be counseled on stress management, during her 45 min individual therapy sessions, 1-2 times per month. Patient to be counseled on healthy assertive communication skills, during her 45 min therapy sessions, 1-2 times per month Patient encouraged to attend the weekly [facility] group therapy Behavioral Health Behavioral Health On track(2022 9:44 AM STRUCTURAL STEEL ERECTOR) No Mavis Slaughter, CORY Note: Goal: Gayathri will be able to report improved ability to cope with family/relationship stressors, to an acceptable level, within the next six months Goal Reviewed today with: patient Readiness to change: Ready to change Department associated with goal: [facility] Steps to [...] documented as of this encounter Care Teams Brand Designer Relationship Specialty Start Date End Date Herbert Jaime, PAC [address] [place] [address] PCP - General Physician Pipe Fitter Gas Pipe 05/08/22 Yang Vinson MD [address] [address] Obstetrics & Gynecology 11/05/16 Cesar Tang MD [address] [address] Consulting Physician Neurology 12/06/16 08/01/24 documented as of this encounter
--- OUTSIDE RECORDS SUMMARY | 2025-08-17 10:03 | XMS_ITS | Encounter Summary ---
Author Organization [facility] Address [address] [place] [address] Phone Care Team Providers Care Plastic Sheeting Cutter Name Role Phone Yang Vinson MD Unavailable [phone] Cesar Tang MD Unavailable [phone] Herbert Jaime [facility] Primary Care Provider [phone] Encounter Details Date Type Department Care Team (Late st Contact Info) Description 12/25/2022 Behavioral Health Patient Survey [facility] 1 [place] [address] Mavis Slaughter, [facility] [address] [place] [address] Social History Tobacco Use Types Packs/Day Years [...] st Contact Info) Description 08/19/2025 3:00 PM ASSISTANT COUNSEL Office Visit [facility] Medical [facility] - Family [facility] [place] - [place] [address] [place] [address] Karla Gamez, DO [address] [place] [address] documented as of this encounter Goals Goal Patient Goal Type Associated Problems Recent Progress Patient-Stated? Author Behavioral Health Behavioral Health On track(2022 9:44 AM ASSISTANT COUNSEL) Yes Mavis Slaughter LCSW Note: I want to get back with being able to communicate with my significant other and help him to not feel unloved or unappreciated. I also want to be able to deal better with stress/anxiety with grandmother situation, within the next six months. Goal Reviewed today with: patient Readiness to change: Ready to change Department associated with goal: [facility] Steps to achieve goal: Patient to be counseled on stress management, during her 45 min individual therapy sessions, 1-2 times per month. Patient to be counseled on healthy assertive communication skills, during her 45 min therapy sessions, 1-2 times per month Patient encouraged to attend the weekly [facility] group therapy Behavioral Health Behavioral Health On track(2022 9:44 AM ASSISTANT COUNSEL) No Mavis Slaughter LCSW Note: Goal: Gayathri will be able to report improved ability to cope with family/relationship stressors, to an acceptable level, within the next six months Goal Reviewed today with: patient Readiness to change: Ready to change Department associated with goal: [facility] Steps to achieve [...] documented as of this encounter Care Teams Plastic Sheeting Cutter Relationship Specialty Start Date End Date Herbert Jaime, [facility] [address] [place] [address] PCP - General Physician Mica Sizer 05/08/22 Yang Vinson MD [address] [place] [address] Obstetrics & Gynecology 11/05/16 Cesar Tang MD [address] [place] [address] Consulting Physician Neurology 12/06/16 08/01/24 documented as of this encounter
--- OUTSIDE RECORDS SUMMARY | 2025-08-17 10:03 | XMS_ITS | Encounter Summary ---
Author Organization [facility] Address [address] [place] [address] Phone Care Team Providers Care Production Foreman Name Role Phone Yang Vinson MD Unavailable [phone] Cesar Tang MD Unavailable [phone] Herbert Jaime [facility] Primary Care Provider [phone] Encounter Details Date Type Department Care Team (Late st Contact Info) Description 03/14/2023 Behavioral Health [facility] Survey [facility] 1 [place] [address] Mavis Slaughter, [facility] [address] [place] [address] Social History Tobacco Use Types Packs/Day Years [...] st Contact Info) Description 08/19/2025 3:00 PM CHECKOUT SUPERVISOR Office Visit [facility] Medical [facility] - Family [facility] [place] [address] [place] [address] Karla Gamez, DO [address] [place] [address] documented as of this encounter Goals Goal Patient Goal Type Associated Problems Recent Progress Patient-Stated? Author Behavioral Health Behavioral Health On track(2022 9:44 AM CHECKOUT SUPERVISOR) Yes Mavis Slaughter LCSW Note: I want to get back with being able to communicate with my significant other and help him to not feel unloved or unappreciated. I also want to be able to deal better with stress/anxiety with grandmother situation, within the next six months. Goal Reviewed today with: patient Readiness to change: Ready to change Department associated with goal: [facility] Steps to achieve goal: Patient to be counseled on stress management, during her 45 min individual therapy sessions, 1-2 times per month. Patient to be counseled on healthy assertive communication skills, during her 45 min therapy sessions, 1-2 times per month Patient encouraged to attend the weekly [facility] group therapy Behavioral Health Behavioral Health On track(2022 9:44 AM CHECKOUT SUPERVISOR) No Mavis Slaughter, CORY Note: Goal: Gayathri will be able to report improved ability to cope with family/relationship stressors, to an acceptable level, within the next six months Goal Reviewed today with: patient Readiness to change: Ready to change Department associated with goal: [facility] Steps to achieve goal: [...] documented as of this encounter Care Teams Production Foreman Relationship Specialty Start Date End Date Herbert Jaime, PAC [address] [place] [address] PCP - General Physician Junior Mechanical Engineer 05/08/22 Yang Vinson MD [address] [place] [address] Obstetrics & Gynecology 11/05/16 Cesar Tang MD [address] [place] [address] Consulting Physician Neurology 12/06/16 08/01/24 documented as of this encounter
--- OUTSIDE RECORDS SUMMARY | 2025-08-17 10:03 | XMS_ITS | Encounter Summary ---
Author Organization [facility] Address [address] [place] [address] Phone Care Team Providers Care Rehab Director Name Role Phone Yang Vinson MD Unavailable [phone] Cesar Tang MD Unavailable [phone] Herbert Jaime [facility] Primary Care Provider [phone] Encounter Details Date Type Department Care Team (Late st Contact Info) Description 11/07/2022 Behavioral Health Patient Survey [facility] 1 [place] [address] Mavis Slaughter, [facility] [address] [place] [address] Social History Tobacco Use Types Packs/Day Years [...] Coronavirus/COVID-19? No / Unsure 11/07/2022 9:46 AM TECHNICAL MANAGER CHEMICAL PLANT documented as of this encounter Plan of Treatment Upcoming Encounters Date Type Department Care Team (Late st Contact Info) Description 08/19/2025 3:00 PM TECHNICAL MANAGER CHEMICAL PLANT Office Visit [facility] Medical [facility] - Family Medicine - [place] [address] [place] [address] Karla Gamez, DO [address] [place] [address] documented as of this encounter Goals Goal Patient Goal Type Associated Problems Recent Progress Patient-Stated? Author Behavioral Health Behavioral Health On track(2022 9:44 AM TECHNICAL MANAGER CHEMICAL PLANT) Yes Mavis Slaughter LCSW Note: I want to get back with being able to communicate with my significant other and help him to not feel unloved or unappreciated. I also want to be able to deal better with stress/anxiety with grandmother situation, within the next six months. Goal Reviewed today with: patient Readiness to change: Ready to change Department associated with goal: [facility] Steps to achieve goal: Patient to be counseled on stress management, during her 45 min individual therapy sessions, 1-2 times per month. Patient to be counseled on healthy assertive communication skills, during her 45 min therapy sessions, 1-2 times per month Patient encouraged to attend the weekly [facility] group therapy Behavioral Health Behavioral Health On track(2022 9:44 AM TECHNICAL MANAGER CHEMICAL PLANT) No Mavis Slaughter LCSW Note: Goal: Gayathri will be able to report improved ability to cope with family/relationship stressors, to an acceptable level, within the next six months Goal Reviewed today with: patient Readiness to change: Ready to change Department associated with goal: [facility] Steps to achieve goal: Gayathri counseled on aspects of healthy self care, during her 45 min therapy sessions, 1-2 times per month Gaaythri counseled on coping with anxiety, including deep [...] documented as of this encounter Care Teams Rehab Director Relationship Specialty Start Date End Date Herbert Jaime, [facility] [address] [place] [address] PCP - General Physician Greaser Helper 05/08/22 Yang Vinson MD [address] [place] [id number] Obstetrics & Gynecology 11/05/16 Cesar Tang MD [address] [place] [address] Consulting Physician Neurology 12/06/16 08/01/24 documented as of this encounter
--- OUTSIDE RECORDS SUMMARY | 2025-08-17 10:03 | XMS_ITS | Encounter Summary ---
Author Organization [facility] Address [address] [place] [address] Phone Care Team Providers Care Flumer Name Role Phone Yang Vinson MD Unavailable [phone] Cesar Tang MD Unavailable [phone] Alex Avilez PAC Primary Care Provider U Herbert Rehman PAC Primary Care Provider [phone] Encounter Details Date Type Department Care Team (Late st Contact Info) Description 04/10/2022 Behavioral Health [facility] Survey [facility] 1 [place] [address] Mychart, Generic Provider [address] [place] [address] Social History Tobacco Use Types Packs/Day Years [...] st Contact Info) Description 08/19/2025 3:00 PM BRIM STRETCHER Office Visit [facility] - Family Medicine [facility] [address] [place] [address] Karla Gamez, DO [address] [facility] [address] [place] [address] documented as of this encounter Goals Goal Patient Goal Type Associated Problems Recent Progress Patient-Stated? Author Behavioral Health Behavioral Health On track(2022 9:44 AM BRIM STRETCHER) Yes Mavis Slaughter LCSW Note: I want [...] Health Behavioral Health On track(2022 9:44 AM BRIM STRETCHER) No Slaughter, Kren K, PRESS HAND Note: Goal: Gayathri will be able to [...] documented as of this encounter Care Teams Flumer Relationship Specialty Start Date End Date Alex Avilez, CARLITA [address] [address] PCP - General Physician Technical Support Manager 03/16/21 05/07/22 Herbert Jaime, [facility] [address] [place] [address] PCP - General Physician Technical Support Manager 05/08/22 Yang Vinson MD [address] [address] Obstetrics & Gynecology 11/05/16 Cesar Tang MD [address] [place] [address] Consulting Physician Neurology 12/06/16 08/01/24 documented as of this encounter
== END 2025-08-17 11:15 | disposition home or self-care (01) ==
PROVIDERS: Emergency Provider Nurse Practitioner Family; PCP Physician Assistant
DX: I80.9 Phlebitis and thrombophlebitis of unspecified site (principal); Z87.891 Personal history of nicotine dependence
CPT/HCPCS: 93971; 99284